=== PATIENT | male | born 1970 | race Caucasian/White ===

== ENCOUNTER 2017-07-18 14:57 | Inpatient (IN) | payer OTHER ==
[~2017-07-18] VITALS: Ht 170.2 cm; Wt 88.5 kg
[~2017-07-18 14:57] MED LIST: CARAFATE1 GM PO; COL100 PO; INS7030 SC; INVOKANA100 MG PO; KEFLEX500 MG PO; NORCO1 TA2 PO; PRILOSEC20 MG PO; REG5 PO; VIC PO
--- NOTE | 2017-07-18 15:24 | NUR ---
PT PRESENTED TO ED WITH C/O N&V, DIZZINESS, ABD PAIN AND WEAKNESS SINCE THIS MORNING. PT IS AAOX4, BREATHING EVEN AND UNLABORED. PT IN NO ACUTE DISTRESS.
--- NOTE | 2017-07-18 15:25 | NUR ---
X-RAY AT BEDSIDE.
[2017-07-18 15:31] LABS: BASOPHIL % 0.5 % (0-2); PLATELET COUNT 242 x10^3mcL (130-400); RED CELL DISTRIBUTION WIDTH 13.4 % (11.5-14.5)
[2017-07-18 15:38] LABS: CALCIUM 8.5 mg/dL (8.5-10.1); CARBON DIOXIDE 28.6 mmol/L (21-32); CHLORIDE SERUM 95 mmol/L (98-107); GFR1 > 60 mL/min; GLUCOSE SERUM 382 mg/dL (74-106); POTASSIUM SERUM 4.6 mmol/L (3.5-5.1); SODIUM SERUM 131 mmol/L (136-145)
[2017-07-18 15:43] LABS: ALBUMIN 3.8 g/dL (3.4-5.0); ALKALINE PHOSPHATASE 93 U/L (46-116); ALT/SGPT 24 U/L (16-63); AST/SGOT 15 U/L (15-37); BILIRUBIN TOTAL 1.1 mg/dL (0.20-1.00); CHOLESTEROL 155 mg/dL (<200); HDL CHOLESTEROL 43 mg/dL (40-60); LIPASE 35 IU/L (73-393); PHOSPHOROUS 3.3 mg/dL (2.5-4.9); TOTAL PROTEIN, SERUM 7.9 g/dL (6.4-8.2); URIC ACID 6.1 mg/dL (3.5-7.2)
[2017-07-18] MEDS ORDERED: [UNRECOGNIZED DRUG - REMARK] SQ (16:14)
[2017-07-18] MEDS ORDERED: NORCO (16:15)
--- NOTE | 2017-07-18 16:41 | NUR ---
GAVE REPORT TO ROMÁN RENAE, SHE WILL ASSUME CARE PRIMARY RN POST TRANSFER.
--- NOTE | 2017-07-18 16:50 | NUR ---
RECEIVED PT FROM ED VIA [facility], CAME IN DUE TO WEAKNESS, NAUSEA, VOMITING, CHEST AND ABDOMINAL PAIN X1 DAY. AAOX4. C/O DIZZINESS. NO SOB NOTED. NSR ON THE MONITOR, DENIES CHEST PAIN/PRESSURE AT THIS TIME. DENIES ABDOMINAL DISCOMFORT. STATED THAT HE VOMITED ABOUT 10 EPISODES TODAY BEFORE ADMISSION. SIDE RAILS UPX2. CALL LIGHT ON REACH. PRIMARY NURSE ROMÁN AT BEDSIDE FOR CONTINUITY OF CARE
[2017-07-18 16:55] VITALS: BP 154/89
[2017-07-18 16:55] LABS: T3 TOTAL 1.03 ng/mL
[2017-07-18 16:56] LABS: FREE T4 1.76 ng/dL (0.76-1.46); FREE THYROXINE INDEX 4.9 ug/dL (1.4-4.5); T4(THYROXINE) 12.6 ug/dL (4.7-13.3)
[2017-07-18 17:00] VITALS: Ht 170.2 cm; Wt 88.5 kg
--- NOTE | 2017-07-18 17:00 | NUR ---
ASSUMED PT. CARE,PT. AWAKE ALERT AND ORIENTED. DENIES N/V AND NO ABD. PAIN NOTED ORIENTED TO ROOM AND SURROUNDINGS. CALL LIGHT W/ IN REACH.NO ACUTE DISTRESS NOTED.MD AWARE OF PT. ADMISSION. WILL CONT. PLAN OF CARE. SCD APPLIED TO EMILY. LOWER EXTR.
--- NOTE | 2017-07-18 20:00 | NUR ---
RECEIVED PT IN BED. ALERT AND ORIENTED. ABLE TO VERBALIZE NEEDS.DENIES HEADACHE/DIZZINESS. RESP.EVEN AND UNLABORED. ON ROOM AIR, NO DISTRESS NOTED. AFEBRILE AND VITAL SIGNS STABLE. SR ON THE MONITOR, DENIES CHEST PAIN OR ANY DISCOMFORT AT THIS TIME.ABD. SOFT, NON DISTENDED, BS ACTIVE, NO N/V NOTED. IVF, NS AT 100ML/HR, INFUSING VIA LAC, SITE CLEAR. AMBULATORY. CALL LIGHT WITHIN REACH. WILL CONTINUE TO MONITOR.
[2017-07-18 21:04] VITALS: BP 126/69
--- NOTE | 2017-07-19 00:10 | NUR ---
NO COMPLAINTS NOTED AT THIS TIME. EYES CLOSED. APPEARS ASLEEP, EASILY AROUSABLE. WILL CONTINUE TO MONITOR.
[2017-07-19 03:37] LABS: UA SPECIFIC GRAVITY 1.005 (1.005-1.035)
[2017-07-19 03:38] LABS: microscopic required? YES
[2017-07-19 03:39] LABS: urine erythrocyte TRACE (NEGATIVE)
[2017-07-19 03:42] LABS: AMPHETAMINE QUAL UR NONE DETECTED (NEG <=1000)
[2017-07-19 06:08] VITALS: BP 147/83
[2017-07-19 06:10] LABS: BASOPHIL % 0.6 % (0-2); PLATELET COUNT 227 x10^3mcL (130-400); RED CELL DISTRIBUTION WIDTH 13.5 % (11.5-14.5)
--- NOTE | 2017-07-19 06:15 | NUR ---
UNABLE TO OBTAIN CIARAN REQUESTED FOR 07/19/17 0310 HOURS DUE TO EXCESS HAIR ON PT'S CHEST.
[2017-07-19 06:23] LABS: CALCIUM 8.2 mg/dL (8.5-10.1); CHLORIDE SERUM 105 mmol/L (98-107); CREATININE SERUM 0.8 mg/dL (0.7-1.3); GFR1 > 60 mL/min; GLUCOSE SERUM 178 mg/dL (74-106); POTASSIUM SERUM 4.2 mmol/L (3.5-5.1); SODIUM SERUM 139 mmol/L (136-145)
--- NOTE | 2017-07-19 06:28 | NUR ---
AFEBRILE AND VITAL SIGNS STABLE. RESP. EVEN AND UNLABORED. NO DISTRESS NOTED. DUE MEDS GIVEN ORDERED , DAVID. WELL. NPO MAINTAINED. NO N/V NOTED. IVF INTACT AND INFUSING WELL, SITE CLEAR. VOIDING FREELY. KEPT COMFORTABLE. WILL ENDORSE TO INCOMING NURSE.
--- NOTE | 2017-07-19 08:00 | NUR ---
AAO TIMES 4. TELE # 16 SR. VS'S STABLE. NO SOB. LUNGS CTA. BS'S ACTIVE TIMES 4. THOMAS STRONG. IV SITE TO LFA CDI, PATENT. COOPERATIVE. SLEEPY BUT AROUSABLE, BREATHING REGULAR. PERIPHERAL PULSES PALPABLE. NO EDEMA. SCD BLE.
[2017-07-19 08:48] VITALS: BP 140/79
--- NOTE | 2017-07-19 10:41 | NUR ---
PT WAS GIVEN FIORCETT AFTER DR GRAVES SAW HIM, HE WAS C/O HEADACHE 08/22 WITH NAUSEA AND SENSITIVITY TO LIGHT AND NOISE. FIORCETT WAS GIVEN AT 0930. AT 1030 PT STATES HIS H/A WAS 7. DEMEROL 25 WITH 12.5 MG PHENERGAN WAS GIVEN SLOW IVP DILUTED IN 8 CC NS AT 1031.
--- NOTE | 2017-07-19 11:09 | NUR ---
PT WAS GIVEN 12.5 MG IVP PHENERGAN WITH 25 MG DEMEROL AT 1031 FOR C/O HEADACHE 7/10. AT 1100 PT STATES HIS HEADACHE PAIN IS 0/10. DR FERGUSON ORDERED THIS. IT WAS EFFECTIVE.
[2017-07-19 12:03] VITALS: BP 129/66
[2017-07-19 17:23] VITALS: BP 118/67
--- NOTE | 2017-07-19 20:00 | NUR ---
PT A/A/O X4, FAMILY AT BEDSIDE. PT DENIES DIZZINESS AND HEADACHE. BREATH SOUNDS CLEAR. BREATHING EVEN AND UNLABORED ON ROOM AIR. DENIES CHEST PAIN AND PRESSURE. BOWEL SOUNDS ACTIVE. NO C/O N/V AND ABD PAIN THUS FAR. IV INTACT ON THE LAC INFUSING WITH NS AT 100 ML/HR. MADE PT COMFORTABLE. PLACED CALL LIGHT WITH IN REACH. WILL CONTINUE TO MONITOR.
[2017-07-19 21:39] VITALS: BP 125/71
--- NOTE | 2017-07-20 01:05 | NUR ---
PT RESTING WITH EYES CLOSED. NO DISTRESS AND DISCOMFORT NOTED. WILL CONTINUE TO MONITOR.
--- NOTE | 2017-07-20 05:01 | NUR ---
PT RESTING WITH EYES CLOSED. EASILY AROUSABLE WITH VERBAL STIMULI. NO C/O HEADACHE, NAUSEA AND ABD PAIN THUS FAR. IV INTACT AND INFUSING ORDERED. WILL ENDORSE TO THE AM NURSE ACCORDINGLY.
[2017-07-20 06:01] VITALS: BP 125/72
[2017-07-20 06:29] LABS: BASOPHIL % 0.4 % (0-2); PLATELET COUNT 228 x10^3mcL (130-400); RED CELL DISTRIBUTION WIDTH 13.6 % (11.5-14.5)
--- NOTE | 2017-07-20 06:40 | NUR ---
BLOOD SUGAR 56 REPEAT 54, DR SNOW NOTIFIED. ORDERED D50. PHARMACY CALLED TO VERIFY ORDER. PT WAS GIVEN APPLE JUICE WITH SUGAR. PT STATED FEELING WEAK. WILL GIVE D50 WHEN VERIFIED. WILL ENDORSE TO THE AM NURSE ACCORDINGLY.
--- NOTE | 2017-07-20 06:54 | NUR ---
GAVE PT D50. PT TOLERATED IT WELL. WILL ENDORSE TO THE AM NURSE ACCORDINGLY.
[2017-07-20 06:57] LABS: CALCIUM 8.5 mg/dL (8.5-10.1); CARBON DIOXIDE 23.2 mmol/L (21-32); CHLORIDE SERUM 105 mmol/L (98-107); CREATININE SERUM 0.8 mg/dL (0.7-1.3); GFR1 > 60 mL/min; GLUCOSE SERUM 61 mg/dL (74-106); MAGNESIUM 2.1 mg/dL (1.8-2.4); PHOSPHOROUS 3.3 mg/dL (2.5-4.9); POTASSIUM SERUM 3.6 mmol/L (3.5-5.1); SODIUM SERUM 139 mmol/L (136-145)
--- NOTE | 2017-07-20 08:21 | NUR ---
PER WALESKA PEARSON RN, BLOOD SUGAR WAS 54 AND 56 THIS AM. SHE GAVE D50 AT 0654. THE BLOOD SUGAR WAS RECHECKED AT 0752 AND IT WAS 169.
[2017-07-20 08:48] VITALS: BP 138/84
--- NOTE | 2017-07-20 10:09 | NUR ---
AAO TIMES 4. TELE # 16 ST 101. LUNGS CTA. NO SOB. O2 SAT ON RA 97%. BS'S ACTIVE TIMES 4. IV SITE LAC PATENT, CDI. COOPERATIVE. NO C/O PAIN. PERIPHERAL PULSES PALPABLE. NO EDEMA. SCD BLE. MEDICAL ROUNDS WERE DONE AT [address] MCCORMICK AND THE MEDICINE TEAM AT 0907. THE PLAN TODAY IS TO DC HIM HOME TODAY IF HE TOLERATES ADVANCING HIS DIET FROM CLEAR TO SOLID FOOD FOR LUNCH.
[2017-07-20 12:46] VITALS: BP 182/92
--- NOTE | 2017-07-20 13:54 | NUR ---
DF SHANNA AWARE THAT PT'S BP IS 182/92.
[2017-07-20] MEDS ORDERED: LIPI10 PO (14:05)
[2017-07-20] MEDS ORDERED: ZES5 PO (14:06)
[2017-07-20] MEDS ORDERED: LAC PO (14:07)
[2017-07-20] MEDS ORDERED: ERYTHROMYCIN B250 MG PO (14:13)
[2017-07-20] MEDS ORDERED: MAC100 PO (14:14)
[2017-07-20] MEDS ORDERED: ASPIR 8181 MG PO (14:28)
--- NOTE | 2017-07-20 14:54 | NUR ---
VASOTEC 0.625 MG IVP WAS GIVEN AT 1408 FOR A BP OF 182/92. AT 1457 HIS BP IS NOW 140/83.
[2017-07-20 14:55] VITALS: BP 140/83
[2017-07-20 15:17] VITALS: BP 140/83
--- NOTE | 2017-07-20 15:52 | NUR ---
GAVE PT DISCHARGE INSTRUCTIONS AND PRESCRIPTION. DC'D SL ANGIO INTACT. PT VERBALIZED "I UNDERSTAND" TO ALL INSTRUCTIONS. PT'S CAR IS OUTSIDE, WE WILL WHEEL HIM DOWN BY WHEELCHAIR TO HIS CAR.
== END 2017-07-20 16:03 | disposition home or self-care (01) | DRG 242 ==
LOC: ED 14:57 → DU 16:06
PROVIDERS: Emergency Medicine; ADMIT Family Medicine
DX: K22.6 Gastro-esophageal laceration-hemorrhage syndrome (principal); D68.69 Other thrombophilia; E11.43 Type 2 diabetes mellitus with diabetic autonomic (poly)neuropathy; K31.84 Gastroparesis; E87.8 Other disorders of electrolyte and fluid balance, not elsewhere classified; E87.1 Hypo-osmolality and hyponatremia; E11.65 Type 2 diabetes mellitus with hyperglycemia; I10 Essential (primary) hypertension; E78.5 Hyperlipidemia, unspecified; K76.0 Fatty (change of) liver, not elsewhere classified; N39.0 Urinary tract infection, site not specified; Z53.29 Procedure and treatment not carried out because of patient's decision for other reasons; D64.9 Anemia, unspecified; K82.4 Cholesterolosis of gallbladder; K29.70 Gastritis, unspecified, without bleeding; K21.9 Gastro-esophageal reflux disease without esophagitis; R31.9 Hematuria, unspecified; Z79.4 Long term (current) use of insulin; Z68.30 Body mass index [BMI] 30.0-30.9, adult; Z79.899 Other long term (current) drug therapy; Z82.3 Family history of stroke
CPT/HCPCS: 82962; 83880; 84439; C9113; J0696; J1364; J1815; J1885; J2175; J2405; J2550; J3490; J7030; J8597; Q0092

== ENCOUNTER 2018-03-01 11:54 | Emergency (ER) | payer OTHER ==
[~2018-03-01] VITALS: Ht 170.2 cm; Wt 85.2 kg
[~2018-03-01 11:54] MED LIST changes: +ASPIR 8181 MG PO; +ERYTHROMYCIN B250 MG PO; +LAC PO; +LIPI10 PO; +MAC100 PO; +NORCO; +ZES5 PO; +[UNRECOGNIZED DRUG - REMARK] SQ
[2018-03-01 12:11] VITALS: Ht 170.2 cm; Wt 85.2 kg
[2018-03-01 13:24] LABS: BASOPHIL % 0.2 % (0-2); PLATELET COUNT 264 x10^3mcL (130-400); RED CELL DISTRIBUTION WIDTH 13.8 % (11.5-14.5)
[2018-03-01 13:36] LABS: CALCIUM 8.9 mg/dL (8.5-10.1); CARBON DIOXIDE 30.4 mmol/L (21-32); CHLORIDE SERUM 97 mmol/L (98-107); CREATININE SERUM 1.1 mg/dL (0.7-1.3); GFR1 > 60 mL/min; GLUCOSE SERUM 309 mg/dL (74-106); SODIUM SERUM 133 mmol/L (136-145)
[2018-03-01 13:40] LABS: ALBUMIN 3.6 g/dL (3.4-5.0); ALKALINE PHOSPHATASE 91 U/L (46-116); ALT/SGPT 21 U/L (16-63); AST/SGOT 16 U/L (15-37); BILIRUBIN TOTAL 0.95 mg/dL (0.20-1.00); LIPASE 30 IU/L (73-393); TOTAL PROTEIN, SERUM 7.6 g/dL (6.4-8.2)
[2018-03-01 13:41] LABS: AMYLASE 23 U/L (25-115)
[2018-03-01 15:00] VITALS: BP 145/88
== END 2018-03-01 15:00 | disposition home or self-care (01) ==
LOC: ED 11:54
PROVIDERS: Emergency Medicine
DX: E11.43 Type 2 diabetes mellitus with diabetic autonomic (poly)neuropathy (principal); K31.84 Gastroparesis; I10 Essential (primary) hypertension; Z86.79 Personal history of other diseases of the circulatory system
CPT/HCPCS: 83880; J1885; J2405

== ENCOUNTER 2018-06-26 03:17 | Inpatient (IN) | payer OTHER ==
[~2018-06-26] VITALS: Ht 170.2 cm; Wt 87.5 kg
[2018-06-26 03:21] VITALS: Ht 170.2 cm; Wt 87.5 kg
[2018-06-26 04:09] LABS: BASOPHIL % 0.3 % (0-2); PLATELET COUNT 249 x10^3mcL (130-400); RED CELL DISTRIBUTION WIDTH 13.6 % (11.5-14.5)
[2018-06-26 04:14] LABS: CALCIUM 8.9 mg/dL (8.5-10.1); CARBON DIOXIDE 28.5 mmol/L (21-32); CHLORIDE SERUM 103 mmol/L (98-107); GFR1 > 60 mL/min; GLUCOSE SERUM 140 mg/dL (74-106); POTASSIUM SERUM 3.5 mmol/L (3.5-5.1); SODIUM SERUM 136 mmol/L (136-145)
[2018-06-26 04:17] LABS: UA SPECIFIC GRAVITY <=1.005 (1.005-1.035); microscopic required? YES; urine erythrocyte 1+ (NEGATIVE)
[2018-06-26 04:19] LABS: ALBUMIN 3.8 g/dL (3.4-5.0); ALKALINE PHOSPHATASE 86 U/L (46-116); ALT/SGPT 26 U/L (16-63); AST/SGOT 23 U/L (15-37); BILIRUBIN TOTAL 0.19 mg/dL (0.20-1.00); LIPASE 40 IU/L (73-393); TOTAL PROTEIN, SERUM 7.9 g/dL (6.4-8.2)
[2018-06-26] MEDS ORDERED: PRINIVIL10 MG PO (05:13)
[2018-06-26] MEDS ORDERED: NORCO1 TA2 PO (05:13)
[2018-06-26 06:05] VITALS: BP 130/81
[2018-06-26 06:35] VITALS: BP 130/81
[2018-06-26 07:20] LABS: CHOLESTEROL/HDL RATIO 3.5; MAGNESIUM 2.2 mg/dL (1.8-2.4); PHOSPHOROUS 4.5 mg/dL (2.5-4.9)
[2018-06-26 09:25] VITALS: BP 117/70
[2018-06-26 12:20] VITALS: BP 118/66
[2018-06-26 13:21] LABS: AMPHETAMINE QUAL UR NONE DETECTED (See below)
[2018-06-26] MEDS ORDERED: LANTI SQ (15:55)
[2018-06-26] MEDS ORDERED: HUMULIN R100 U/1 M1 SC (15:58)
[2018-06-26 17:20] VITALS: BP 138/77
[2018-06-26 21:39] VITALS: BP 136/70
[2018-06-27 06:05] VITALS: BP 138/80
[2018-06-27 06:20] LABS: CALCIUM 8.1 mg/dL (8.5-10.1); CARBON DIOXIDE 24.9 mmol/L (21-32); CHLORIDE SERUM 103 mmol/L (98-107); CREATININE SERUM 0.8 mg/dL (0.7-1.3); GFR1 > 60 mL/min; SODIUM SERUM 133 mmol/L (136-145)
[2018-06-27 06:21] LABS: BASOPHIL % 0.6 % (0-2); PLATELET COUNT 225 x10^3mcL (130-400); RED CELL DISTRIBUTION WIDTH 13.8 % (11.5-14.5)
[2018-06-27 06:53] LABS: GLUCOSE SERUM 257 mg/dL (74-106); MAGNESIUM 1.7 mg/dL (1.8-2.4); PHOSPHOROUS 3.6 mg/dL (2.5-4.9)
[2018-06-27 09:14] VITALS: BP 142/77
[2018-06-27] MEDS ORDERED: NEU300 PO (10:55)
[2018-06-27 13:23] LABS: T3 TOTAL 1.02 ng/mL
[2018-06-27 13:53] LABS: FREE T4 1.29 ng/dL (0.76-1.46); FREE THYROXINE INDEX 3.2 ug/dL (1.4-4.5)
[2018-06-27 14:09] VITALS: BP 142/77
== END 2018-06-27 14:53 | disposition home or self-care (01) | DRG 420 ==
LOC: ED 03:17 → DU 05:01
PROVIDERS: Emergency Medicine; Family Medicine; Internal Medicine
DX: E11.649 Type 2 diabetes mellitus with hypoglycemia without coma (principal); I10 Essential (primary) hypertension; Z79.4 Long term (current) use of insulin; Z68.30 Body mass index [BMI] 30.0-30.9, adult; R68.0 Hypothermia, not associated with low environmental temperature
CPT/HCPCS: 83880; 84439; J2543; J7030; Q0092

== ENCOUNTER 2019-03-19 12:20 | Inpatient (IN) | payer OTHER ==
[~2019-03-19] VITALS: Ht 170.2 cm; Wt 83.0 kg
[~2019-03-19 12:20] MED LIST changes: +HUMULIN R100 U/1 M1 SC; +LANTI SQ; +NEU300 PO; +PRINIVIL10 MG PO
[2019-03-19 12:46] VITALS: Ht 170.2 cm; Wt 83.0 kg
--- NOTE | 2019-03-19 13:05 | NUR ---
AWAKE ALERT, C/O FLANK PAIN SINCE 1 AM WITH NAUSEA AND VOMITING,
--- NOTE | 2019-03-19 13:34 | NUR ---
MEDICATED FOR FLANK PAIN WITH TORADOL AND ZOFRAN FOR VOMITING
[2019-03-19 13:36] LABS: BASOPHIL % 0.4 % (0-2); PLATELET COUNT 308 x10^3mcL (130-400); RED CELL DISTRIBUTION WIDTH 12.7 % (11.5-14.5)
[2019-03-19 13:45] LABS: UA SPECIFIC GRAVITY >1.030 (1.005-1.035); microscopic required? YES
[2019-03-19 13:46] LABS: urine erythrocyte 2+ (NEGATIVE)
[2019-03-19 14:25] LABS: CALCIUM 8.6 mg/dL (8.5-10.1); CARBON DIOXIDE 26.4 mmol/L (21-32); CREATININE SERUM 1.6 mg/dL (0.7-1.3); POTASSIUM SERUM 3.7 mmol/L (3.5-5.1)
[2019-03-19 14:29] LABS: BILIRUBIN TOTAL 0.3 mg/dL (0.20-1.00); TOTAL PROTEIN, SERUM 7.5 g/dL (6.4-8.2)
[2019-03-19 14:31] LABS: ALBUMIN 2.8 g/dL (3.4-5.0)
--- NOTE | 2019-03-19 14:53 | NUR ---
PT MEDICATED ORDERED FOR PAIN. PT AWAKE ALERT AND ORIENTED. BREATHING EVEN UNLABORED. NO DISTRESS.
--- NOTE | 2019-03-19 15:09 | NUR ---
REPORT TO BENITO
[2019-03-19 15:41] LABS: CHOLESTEROL/HDL RATIO 3.4; PHOSPHOROUS 3.4 mg/dL (2.5-4.9)
[2019-03-19 15:50] VITALS: BP 180/87
--- NOTE | 2019-03-19 15:54 | NUR ---
GAVE PT NORCO 1 TAB FOR C/O L FLANK PAIN AT 8/10 PAIN SCALE.
--- NOTE | 2019-03-19 16:01 | NUR ---
RECEVIED PT FROM ER, PT ADMIT FOR INTRACTABLE FLANK PAIN HYDRONEPHROSIS, UTI, PT IS A/O X4, VERBAL RESPONSIVE, ABLE TO TELL WHAT HE NEEDS. LUNG SOUND CLEAR BILATERAL, NO COUGH, NO SOB, DENY ANY CHEST PAIN OR DISCOMFORT, BOWEL SOUND PRESENT ALL 4 QUADRANTS, NO DISTENTION, C/O LEFT FLANK PAIN, 8/10, DENY ANY N/V, PEDAL PULSE PRESENT BOTH FEET, TRACE EDEMA BLE, IV AT RIGHT AC, AND RIGHT FA, NO LEAKIGN, NO INFILTRAITON. ALL ADLS ASSIST, ALL NEED MET, CALL LIGHT IN REACH, WILL CONTINUE TO MONITOR.
--- NOTE | 2019-03-19 16:10 | NUR ---
RECEIVED PT ,RESOURCE NURSE.AAO X4.C/O L FLANK PAIN AT 8/10 PAIN SCALE.WILL MEDICATE NEEDED.LUNGS CLEAR.PT NON-TELE.IVF NS STARTED AT 100 ML/HR INFUSING WELL.CALL LIGHT WITHIN REACH.INSTRUCTED TO CALL FOR ANY PAIN/DISCOMFORT.PT VERBALIZES UNDERSTANDING.WILL CONTINUE TO MONITOR PT.
--- NOTE | 2019-03-19 16:30 | NUR ---
GAVE MORPHINE ORDERED PRN FOR UNRELIEVED PAIN AFTER GIVING HIM NORCO.WILL RECHECK
--- NOTE | 2019-03-19 16:44 | NUR ---
GAVE ZOFRAN 4 MG IVP FOR C/O NAUSEA AND VOMITTING.
--- NOTE | 2019-03-19 16:54 | NUR ---
RECHECKED PAIN LEVEL CLAIMS PAIN IS GETTING WORSE AT 10/10
--- NOTE | 2019-03-19 17:00 | NUR ---
RECHECKED PAIN LEVEL CLAIMS PAIN WENT DOWN TO 7/10 PAIN SCALE.CLAIMS TO FEEL A LOT BETTER.
--- NOTE | 2019-03-19 18:27 | NUR ---
NO SIGNIFICANT CHANGE NOTED.WILL ENDORSE TO NEXT SHIFT.
--- NOTE | 2019-03-19 20:00 | NUR ---
PT A/A/O X4, FAMILY AT BEDSIDE. PT DENIES DIZZINESS AND HEADACHE. BREATH SOUNDS CLEAR. BREATHING EVEN AND UNLABORED ON ROOM AIR. DENIES CHEST PAIN AND PRESSURE. HYPOACTIVE BOWEL SOUNDS NOTED. PT VOMITING SMALL AMOUNT OF FLUID. WILL GIVE ANTIEMESIS MEDICATION WHEN DUE. NO C/O ABDOMINAL PAIN THUS FAR. TRACE EDEMA NOTED BLE. IV SALINE LOCK INTACT ON THE RAC AND IV INTACT ON THE RIGHT FOREARM INFUSING WITH NS AT 100 ML/HR. MADE PT COMFORTABLE. PLACED CALL LIGHT WITH IN REACH. WILL CONTINUE TO MONITOR.
[2019-03-19 20:40] VITALS: BP 162/69
--- NOTE | 2019-03-19 21:35 | NUR ---
PT C/O NAUSEA. GAVE PT ZOFRAN IVP. PT TOLERATED IT WELL. WILL CONTINUE TO MONITOR.
--- NOTE | 2019-03-20 00:51 | NUR ---
PT RESTING WITH EYES CLOSED. NO DISTRESS AND DISCOMFORT NOTED. WILL CONTINUE TO MONITOR.
--- NOTE | 2019-03-20 02:56 | NUR ---
PT C/O NAUSEA AND LEFT FLANK PAIN. GAVE PT ZOFRAN IVP FOR NAUSEA AND MORPHINE IVP FOR PAIN. PT TOLERATED MEDICATIONS WELL. WILL CONTINUE TO MONITOR.
--- NOTE | 2019-03-20 05:02 | NUR ---
PT C/O CHILLS AND CONTINUES TO VOMIT. DR. MUÑOZ MADE AWARE. WAITING FOR NEW ORDERS. MADE PT COMFORTABLE. WILL CONTINUE TO MONITOR.
[2019-03-20 05:35] VITALS: BP 165/77
--- NOTE | 2019-03-20 05:41 | NUR ---
PT C/O NAUSEA. GAVE PT PHENERGAN IVP. PT TOLERATED IT WELL. DENIES PAIN THUS FAR. WILL CONTINUE TO MONITOR.
[2019-03-20 06:44] VITALS: BP 133/67
--- NOTE | 2019-03-20 06:45 | NUR ---
PT DENIES PAIN AND NAUSEA THUS FAR. IV INTACT AND INFUSING ORDERED. MADE PT COMFORTABLE. WILL ENDORSE TO THE AM NURSE ACCORDINGLY.
[2019-03-20 06:54] LABS: PLATELET COUNT 286 x10^3mcL (130-400); RED CELL DISTRIBUTION WIDTH 13.1 % (11.5-14.5)
[2019-03-20 07:03] LABS: CARBON DIOXIDE 23.3 mmol/L (21-32); CREATININE SERUM 1.7 mg/dL (0.7-1.3); MAGNESIUM 1.7 mg/dL (1.8-2.4); PHOSPHOROUS 2.6 mg/dL (2.5-4.9); POTASSIUM SERUM 3.9 mmol/L (3.5-5.1)
--- NOTE | 2019-03-20 07:10 | NUR ---
RECIEVED PT FROM NIGHT NURSE. PT IS LAYING DOWN IN BED RESTING WITH EYES CLOSE. PT LOOKS TO BE IN NO ACUTE DISTRESS AT THIS TIME. IV SITE PATENT WITH NO SIGNS OF ERYTHEMA OR SWELLING. BED IN LOWEST POSITION. CALL LIGHT WITHIN REACH. WILL CONTINUE TO MONTIOR.
[2019-03-20 07:57] VITALS: BP 130/60
--- NOTE | 2019-03-20 08:15 | NUR ---
PT TEMP ORAL 101. REMOVED BLANKETS AND PLACED ICE PACKS, WILL CONTINUE TO MONITOR.
--- NOTE | 2019-03-20 09:00 | NUR ---
REASSESSED TEMP POST COOLING MEASURES. PT TEMP CURRENTLY AT 98.9F ORAL. INSTRUCTED TO PRESS CALL LIGHT IF FEELING A CHANGE IN TEMPERATURE. ARTEM CONTINUE TO MONITOR TEMP. CALL LIGHT WITHIN REACH.
[2019-03-20 11:54] VITALS: BP 118/66
--- NOTE | 2019-03-20 13:20 | NUR ---
PT COMPLAINING OF NAUSEA AND STATED VOMITED 3 TIMES. ALSO COMPLAINING OF A HEADACHE. WILL MEDICATE PT ACCORDINDING TO EMAR.
[2019-03-20 14:10] LABS: BAND NEUTROPHIL 8 % (0-10); BASOPHIL 0 % (0-2); MONOCYTE 1 % (0-7); SEGMENTED NEUTROPHILS 91 % (37-75)
[2019-03-20 14:11] LABS: rbc morphology (normal/abnorm) ABNORMAL (NORMAL)
[2019-03-20 14:12] LABS: PLATELET MORPHOLOGY PLATELETS INCREASED
[2019-03-20 17:11] VITALS: BP 138/59
--- NOTE | 2019-03-20 18:24 | NUR ---
PT IS SITTING UP IN BED EATING. 2 FAMILY MEMBERS AT BEDSIDE. PT DENIES ANY PAIN OR FEELINGS OF NASUEA AT THIS TIME. IV SITE IS PATENT WITH NO SIGNS OF ERYTHEMA OR SWELING WITH IV FLUIDS INFUSING. BED IN LOWEST POSITION. CALL LIGHT WITHIN REACH. WILL ENDORSE TO ONCOMING SHIFT.
[2019-03-20 19:37] VITALS: BP 131/66
--- NOTE | 2019-03-20 20:05 | NUR ---
PATIENT RECEIVED AWAKE, ALERT, ORIENTED X4 IN BED. FAMILY MEMBERS AT THE BEDSIDE. RESPIRATION EVEN AND UNLABORED, ON ROOM AIR. ONGOING 0.9% NS AT 100 CC/HR INFUSING WELL AT THE RIGHT WRIST AND SALINE LOCK TO RIGHT ANTECUBITAL AREA. DENIES PAIN AT THIS TIME. NO GI COMPLAINTS NOTED AT THIS TIME. GENERALIZED WEAKNESS TO EXTREMITIES. SKIN INTACT. VOIDING FREELY WITHOUT DIFFICULTY. WILL CONTINUE TO MONITOR.
--- NOTE | 2019-03-20 20:42 | NUR ---
PATIENT COMPLAINED OF SHARP ABDOMINAL/BACK PAIN, PS 10/10. MEDICATED WITH MORPHINE SULFATE 1 MG IVP ORDERED. WILL CONTINUE TO MONITOR.
--- NOTE | 2019-03-21 02:47 | NUR ---
PATIENT COMPLAINED OF SHARP ABDOMINAL AND BACK PAIN, PS 10/10 AND NAUSEA. MEDICATED WITH MORPHINE SULFATE 1 MG IVP ORDERED AND PHENERGAN 12.5 MG IVP ORDERED. WILL CONTINUE TO MONITOR.
[2019-03-21 04:47] VITALS: BP 139/59
--- NOTE | 2019-03-21 05:05 | NUR ---
PATIENT VERBALIZED HE DOESN'T FEEL GOOD, HE FEELS LIKE THROWING UP AGAIN, HE CAN'T EXPLAIN HOW HIS STOMACH FEELS. DR MUÑOZ INFORMED PERSONALLY. WILL COME UP TO SEE PATIENT.
--- NOTE | 2019-03-21 06:07 | NUR ---
PATIENT STILL COMPLAINING OF NAUSEA AND VOMITING. NOTED 100 ML OF EMESIS. MEDICATED WITH PHENERGAN 12.5 MG IVP ORDERED. HE IS ALSO COMPLAINING OF ABDOMINAL PAIN, PS 10/10. MEDICATED WITH MORPHINE 1 MG IVP ORDERED. WILL CONTINUE TO MONITOR.
--- NOTE | 2019-03-21 06:12 | NUR ---
PATIENT RESTING IN BED. PATIENT VERBALIZED HE STILL DOESN'T FEEL GOOD. REPOSITIONED FOR COMFORT. ICE CHIPS OFFERED BUT REFUSED. IV SITE NO SIGN OF INFILTRATION. ASSISTED WITH NEEDS. SAFETY OBSERVED. PLACED BED IN THE LOWEST POSITION. PLACED CALL LIGHT WITHIN REACH AT ALL TIMES.
[2019-03-21 07:08] LABS: BASOPHIL % 0.1 % (0-2); PLATELET COUNT 293 x10^3mcL (130-400); RED CELL DISTRIBUTION WIDTH 12.3 % (11.5-14.5)
--- NOTE | 2019-03-21 07:10 | NUR ---
RECIEVED PT FROM NIGHT NURSE. PT IS RESTING IN BED WITH HOB UP. RESPIRATIONS EVEN AND UNLABORED ON ROOM AIR. PT LOOKS TO BE IN NO ACUTE DISTRESS AT THIS TIME. IV SITE PATENT WITH NO SIGNS OF ERYTHEMA OR SWELLING WITH IV FLUIDS INFUSING. BED IN LOWEST POSITION, CALL LIGHT WITHIN REACH. WILL CONTINUE TO MONITOR.
[2019-03-21 07:18] LABS: CALCIUM 8.3 mg/dL (8.5-10.1); CARBON DIOXIDE 18.6 mmol/L (21-32); CHLORIDE SERUM 99 mmol/L (98-107); CREATININE SERUM 1.2 mg/dL (0.7-1.3); GFR1 > 60 mL/min; GLUCOSE SERUM 341 mg/dL (74-106); PHOSPHOROUS 2.5 mg/dL (2.5-4.9); POTASSIUM SERUM 4.2 mmol/L (3.5-5.1); SODIUM SERUM 133 mmol/L (136-145)
[2019-03-21 07:48] VITALS: BP 136/60
[2019-03-21 12:04] VITALS: BP 120/56
--- NOTE | 2019-03-21 13:09 | NUR ---
PT COMPLAINING OF BACK PAIN 07/23. PT REQUESTING PAIN MEDICATIO. MADE PT COMFORTABLE IN BED. WILL MEDICATE ACCORDING TO EMAR
[2019-03-21 16:03] VITALS: BP 134/65
--- NOTE | 2019-03-21 18:44 | NUR ---
PT IS LAYING DOWN IN BED WITH HOB UP. RESPRIATIONS EVEN AND UNLABORED ON ROOM AIR. PT IS COMPLAINING OF BACK PAIN, MEDICATED PT, WILL REASSES. IV SITE PATENT WITH NO SIGNS OF ERYTHEMA OR SWELLING WITHIN IV FLUIDS INFUSING. PT DENIES FEELING NASUEA AT THIS TIME. FAMILY MEMBER AT BEDSIDE. BED IN LOWEST POSITION. CALL LIGHT WITHIN REACH. WILL ENDORSE TO ONCOMING SHIFT.
--- NOTE | 2019-03-21 19:15 | NUR ---
RECEIVED PT FROM PREVIOUS SHIFT NURSE. PT AOX4. DENIES SANCHEZ/DIZZINESS. MED SURG PT, DENIES CP/PRESSURE. NO SOB/DIFFICULTY BREATHING, ON RA. IV TO RAC, INTACT AND PATENT. BED IN LOWEST POSITION. CALL LIGHT WITHIN REACH. WILL CONTINUE TO MONITOR.
[2019-03-21 20:23] VITALS: BP 140/69
--- NOTE | 2019-03-22 02:47 | NUR ---
PT RESTING IN BED. RR EVEN AND UNLABORED. NO ACUTE DISTRESS NOTED. CALL LIGHT WITHIN REACH. BED IN LOWEST POSITION. WILL CONTINUE TO MONITOR.
[2019-03-22 04:42] VITALS: BP 145/74
[2019-03-22 06:47] LABS: CALCIUM 8.4 mg/dL (8.5-10.1); CARBON DIOXIDE 23.7 mmol/L (21-32); CHLORIDE SERUM 102 mmol/L (98-107); GFR1 > 60 mL/min; GLUCOSE SERUM 324 mg/dL (74-106); MAGNESIUM 1.9 mg/dL (1.8-2.4); PHOSPHOROUS 2.6 mg/dL (2.5-4.9); POTASSIUM SERUM 4.3 mmol/L (3.5-5.1); SODIUM SERUM 135 mmol/L (136-145)
[2019-03-22 07:38] LABS: PLATELET COUNT 310 x10^3mcL (130-400); RED CELL DISTRIBUTION WIDTH 13.4 % (11.5-14.5)
[2019-03-22 07:39] LABS: BASOPHIL % 0.2 % (0-2)
--- NOTE | 2019-03-22 07:43 | NUR ---
ASSUMED CARE OF PATIENT. ALERT AND ORIENTED X4. S1 S2 SOUNDS NOTED. PULSES PALPABLE BILATERALLY. TRACE BLE EDEMA. LUNG SOUNDS CLEAR TO ROOM AIR, NO ADVENTITIOUS BREATH SOUNDS NOTED BILATERALLY. BOWEL SOUNDS ACTIVE IN ALL 4 QUADRANTS. VOIDING WITH NO ISSUE. GENERALIZED WEAKNESS, BUT AMBULATING INDEPENDENTLY WITH STEADY GAIT. SKIN CLEAN DRY INTACT. NO COMPLAINTS OF PAIN. IV ON RIGHT AC PATENT AND INFUSING WELL. BED LOCKED AND IN LOWEST POSITION. NONSKID SOCKS IN PLACE. CALL LIGHT WITHIN REACH. WILL CONTINUE TO MONITOR.
--- NOTE | 2019-03-22 09:00 | NUR ---
ORDER FOR CT VERFIFIED. NOTIFIED CT THAT PATIENT ATE BREAKFAST AT 830 THIS MORNING. 18G PATENT AND INFUSING ON RFA. EDUCATED PATIENT TO REMAIN NPO UNTIL CT EXAMINATION.
[2019-03-22 09:16] VITALS: BP 152/77
--- NOTE | 2019-03-22 12:17 | NUR ---
RETURNED FROM CT. PLACED BACK ON IVF. NO NEW ISSUES.
--- NOTE | 2019-03-22 13:40 | NUR ---
PATIENT SEEN RESTING IN BED WITH NO COMPLAINTS OF PAIN OR DISCOMFORT. NO N/V. NO NEW ISSUES AT THIS TIME.
[2019-03-22] MEDS ORDERED: TRAMADOL HCL50 MG PO (14:20)
[2019-03-22] MEDS ORDERED: KEFLEX500 M1 PO (14:21)
[2019-03-22 14:37] VITALS: BP 152/77
--- NOTE | 2019-03-22 15:02 | NUR ---
PATIENT PROVIDED WITH DISCHARGE INSTRUCTIONS. PRESCRIPTIONS PROVIDED. REQUESTING TO HAVE ROCEPHIN BEFORE DISCHARGE. NO COMPLAINTS OF PAIN OR DISCOMFORT AT THIS TIME.
--- NOTE | 2019-03-22 16:08 | NUR ---
PATIENT DISCHARGED FROM UNIT BY WHEELCHAIR. NO COMPLAINTS OF PAIN OR DISCOMFORT. IV REMOVED WITH CATHETER INTACT. ID BAND REMOVED. LEFT WITH ALL BELONGINGS.
== END 2019-03-22 16:04 | disposition home or self-care (01) | DRG 463 ==
LOC: ED 12:20 → MU 14:48 → EDBEDREQ 14:48 → MU 15:41
PROVIDERS: Emergency Medicine; ADMIT Family Medicine
DX: N10 Acute pyelonephritis (principal); N17.0 Acute kidney failure with tubular necrosis; E11.65 Type 2 diabetes mellitus with hyperglycemia; E44.0 Moderate protein-calorie malnutrition; E87.1 Hypo-osmolality and hyponatremia; E86.0 Dehydration; G89.29 Other chronic pain; M79.672 Pain in left foot; I10 Essential (primary) hypertension; Z79.4 Long term (current) use of insulin; Z68.28 Body mass index [BMI] 28.0-28.9, adult; Z82.3 Family history of stroke; Z79.899 Other long term (current) drug therapy
CPT/HCPCS: 82962; J0696; J1885; J2270; J2405; J2550; J3010; J7030; Q9967

== ENCOUNTER 2019-03-24 12:39 | Emergency (ER) | payer OTHER ==
[~2019-03-24] VITALS: Ht 170.2 cm; Wt 81.6 kg
[~2019-03-24 12:39] MED LIST changes: +KEFLEX500 M1 PO; +TRAMADOL HCL50 MG PO
[2019-03-24 12:47] VITALS: Ht 170.2 cm; Wt 81.6 kg
[2019-03-24 13:28] LABS: BASOPHIL % 0.2 % (0-2); PLATELET COUNT 381 x10^3mcL (130-400); RED CELL DISTRIBUTION WIDTH 12.9 % (11.5-14.5)
[2019-03-24 13:36] LABS: CALCIUM 8.4 mg/dL (8.5-10.1); CARBON DIOXIDE 21.2 mmol/L (21-32); CHLORIDE SERUM 95 mmol/L (98-107); CREATININE SERUM 1.3 mg/dL (0.7-1.3); GFR1 > 60 mL/min; GLUCOSE SERUM 447 mg/dL (74-106); POTASSIUM SERUM 4.1 mmol/L (3.5-5.1); SODIUM SERUM 132 mmol/L (136-145)
[2019-03-24 13:40] LABS: ALKALINE PHOSPHATASE 95 U/L (46-116); ALT/SGPT 17 U/L (16-63); AST/SGOT 13 U/L (15-37); BILIRUBIN TOTAL 0.43 mg/dL (0.20-1.00); LIPASE 24 IU/L (73-393)
[2019-03-24 13:41] LABS: ALBUMIN 2.5 g/dL (3.4-5.0)
[2019-03-24 16:26] VITALS: BP 147/83
== END 2019-03-24 16:26 | disposition home or self-care (01) ==
LOC: ED 12:39
PROVIDERS: Emergency Medicine
DX: N12 Tubulo-interstitial nephritis, not specified as acute or chronic (principal); E11.22 Type 2 diabetes mellitus with diabetic chronic kidney disease; I12.0 Hypertensive chronic kidney disease with stage 5 chronic kidney disease or end stage renal disease; N18.6 End stage renal disease; R20.8 Other disturbances of skin sensation
CPT/HCPCS: 82962; J2270; J2405; J3490; J7030

== ENCOUNTER 2019-03-25 08:56 | Inpatient (IN) | payer OTHER ==
[~2019-03-25] VITALS: Ht 170.2 cm; Wt 79.4 kg
[2019-03-25 09:10] VITALS: Ht 170.2 cm; Wt 79.4 kg
[2019-03-25 10:07] LABS: ALKALINE PHOSPHATASE 91 U/L (46-116); ALT/SGPT 17 U/L (16-63); AST/SGOT 10 U/L (15-37); BILIRUBIN TOTAL 0.46 mg/dL (0.20-1.00); CALCIUM 9.9 mg/dL (8.5-10.1); CHLORIDE SERUM 94 mmol/L (98-107); CREATININE SERUM 1.3 mg/dL (0.7-1.3); GFR1 > 60 mL/min; LIPASE 26 IU/L (73-393); POTASSIUM SERUM 4.1 mmol/L (3.5-5.1); SODIUM SERUM 131 mmol/L (136-145); TOTAL PROTEIN, SERUM 7.1 g/dL (6.4-8.2)
[2019-03-25 10:11] LABS: BASOPHIL % 0.2 % (0-2); PLATELET COUNT 392 x10^3mcL (130-400); RED CELL DISTRIBUTION WIDTH 13.3 % (11.5-14.5)
[2019-03-25 10:13] LABS: ALBUMIN 2.6 g/dL (3.4-5.0)
[2019-03-25 10:14] LABS: GLUCOSE SERUM 486 mg/dL (74-106)
[2019-03-25 11:59] LABS: UA SPECIFIC GRAVITY 1.015 (1.005-1.035); microscopic required? YES; urine erythrocyte 2+ (NEGATIVE)
[2019-03-25 14:43] VITALS: BP 172/81
[2019-03-25 16:36] LABS: CHOLESTEROL/HDL RATIO 4.8
[2019-03-25 16:54] LABS: AMPHETAMINE QUAL UR NONE DETECTED (See below)
[2019-03-25 18:36] VITALS: BP 168/77
[2019-03-25 20:44] VITALS: BP 167/81
[2019-03-26 06:10] VITALS: BP 163/85
[2019-03-26 06:26] VITALS: BP 160/74
[2019-03-26 06:35] LABS: BASOPHIL % 0.5 % (0-2); PLATELET COUNT 335 x10^3mcL (130-400); RED CELL DISTRIBUTION WIDTH 13.3 % (11.5-14.5)
[2019-03-26 06:46] LABS: CALCIUM 8.5 mg/dL (8.5-10.1); CARBON DIOXIDE 26.8 mmol/L (21-32); CHLORIDE SERUM 101 mmol/L (98-107); CREATININE SERUM 0.8 mg/dL (0.7-1.3); GFR1 > 60 mL/min; GLUCOSE SERUM 207 mg/dL (74-106); POTASSIUM SERUM 3.4 mmol/L (3.5-5.1); SODIUM SERUM 136 mmol/L (136-145)
[2019-03-26 09:12] VITALS: BP 152/77
[2019-03-26 12:21] VITALS: BP 162/85
[2019-03-26 15:29] LABS: CALCIUM 8.3 mg/dL (8.5-10.1); CARBON DIOXIDE 27.7 mmol/L (21-32); CHLORIDE SERUM 98 mmol/L (98-107); CREATININE SERUM 0.9 mg/dL (0.7-1.3); GFR1 > 60 mL/min; GLUCOSE SERUM 297 mg/dL (74-106); POTASSIUM SERUM 3.5 mmol/L (3.5-5.1); SODIUM SERUM 133 mmol/L (136-145)
[2019-03-26 15:32] LABS: BASOPHIL % 0.2 % (0-2); PLATELET COUNT 387 x10^3mcL (130-400); RED CELL DISTRIBUTION WIDTH 13.5 % (11.5-14.5)
[2019-03-26 16:40] VITALS: BP 165/77
[2019-03-26 21:10] VITALS: BP 169/87
[2019-03-27 06:11] VITALS: BP 143/53
[2019-03-27 09:00] VITALS: BP 159/79
[2019-03-27 12:41] VITALS: BP 165/85
[2019-03-27 17:21] VITALS: BP 162/85
[2019-03-27 21:00] VITALS: BP 129/78
[2019-03-27 21:02] VITALS: BP 136/77
[2019-03-28 05:36] VITALS: BP 149/75
[2019-03-28 07:44] LABS: BASOPHIL % 0.5 % (0-2); PLATELET COUNT 339 x10^3mcL (130-400); RED CELL DISTRIBUTION WIDTH 13.4 % (11.5-14.5)
[2019-03-28 07:45] LABS: CALCIUM 8.6 mg/dL (8.5-10.1); CHLORIDE SERUM 103 mmol/L (98-107); CREATININE SERUM 0.9 mg/dL (0.7-1.3); GFR1 > 60 mL/min; GLUCOSE SERUM 176 mg/dL (74-106); POTASSIUM SERUM 3.2 mmol/L (3.5-5.1); SODIUM SERUM 139 mmol/L (136-145)
[2019-03-28 09:44] VITALS: BP 158/82
[2019-03-28 13:30] VITALS: BP 133/80
[2019-03-28 18:04] VITALS: BP 174/91
[2019-03-28 22:29] VITALS: BP 179/81
[2019-03-29 05:24] VITALS: BP 145/79
[2019-03-29 06:55] LABS: BASOPHIL % 0.4 % (0-2); PLATELET COUNT 354 x10^3mcL (130-400); RED CELL DISTRIBUTION WIDTH 13.8 % (11.5-14.5)
[2019-03-29 07:02] LABS: CALCIUM 8.7 mg/dL (8.5-10.1); CARBON DIOXIDE 30.5 mmol/L (21-32); CHLORIDE SERUM 103 mmol/L (98-107); CREATININE SERUM 0.9 mg/dL (0.7-1.3); GFR1 > 60 mL/min; GLUCOSE SERUM 168 mg/dL (74-106); POTASSIUM SERUM 3.5 mmol/L (3.5-5.1); SODIUM SERUM 139 mmol/L (136-145)
[2019-03-29 08:28] VITALS: BP 127/70
[2019-03-29] MEDS ORDERED: NEU300 PO (09:47)
[2019-03-29] MEDS ORDERED: CIPRO500 MG PO (09:50)
[2019-03-29] MEDS ORDERED: TOR10 PO (09:52)
[2019-03-29 10:30] VITALS: BP 127/70
== END 2019-03-29 12:13 | disposition home health service (06) | DRG 463 ==
LOC: ED 08:56 → DU 13:20 → EDBEDREQ 13:21 → DU 14:31
PROVIDERS: Emergency Medicine; Internal Medicine; ADMIT Family Medicine
DX: N10 Acute pyelonephritis (principal); N17.0 Acute kidney failure with tubular necrosis; E11.65 Type 2 diabetes mellitus with hyperglycemia; I10 Essential (primary) hypertension; E87.1 Hypo-osmolality and hyponatremia; E86.0 Dehydration; E44.0 Moderate protein-calorie malnutrition; Z86.73 Personal history of transient ischemic attack (TIA), and cerebral infarction without residual deficits
CPT/HCPCS: 82962; J0360; J0696; J1815; J1885; J2270; J2405; J2765; J3490; J7030; Q0092

== ENCOUNTER 2019-05-01 05:49 | Emergency (ER) | payer OTHER ==
[~2019-05-01] VITALS: Ht 170.2 cm; Wt 80.9 kg
[~2019-05-01 05:49] MED LIST changes: +CIPRO500 MG PO; +TOR10 PO
[2019-05-01 05:52] VITALS: Ht 170.2 cm; Wt 80.9 kg
[2019-05-01 06:44] LABS: BASOPHIL % 0.1 % (0-2); PLATELET COUNT 252 x10^3mcL (130-400)
[2019-05-01 06:45] LABS: RED CELL DISTRIBUTION WIDTH 14.7 % (11.5-14.5)
[2019-05-01 07:11] LABS: CALCIUM 8.8 mg/dL (8.5-10.1); CREATININE SERUM 1.5 mg/dL (0.7-1.3); POTASSIUM SERUM 4.4 mmol/L (3.5-5.1)
[2019-05-01 07:14] LABS: ALBUMIN 2.9 g/dL (3.4-5.0); BILIRUBIN TOTAL 0.5 mg/dL (0.20-1.00)
[2019-05-01 08:31] LABS: UA SPECIFIC GRAVITY 1.025 (1.005-1.035); microscopic required? YES; urine erythrocyte 2+ (NEGATIVE)
[2019-05-01 09:45] VITALS: BP 148/74
[2019-05-02] MEDS ORDERED: RELION HUMUL100 U/M2 IV (22:34)
== END 2019-05-01 09:45 | disposition home or self-care (01) ==
LOC: ED 05:49
PROVIDERS: Emergency Medicine
DX: N13.30 Unspecified hydronephrosis (principal); I10 Essential (primary) hypertension; E11.9 Type 2 diabetes mellitus without complications; Z98.890 Other specified postprocedural states
CPT/HCPCS: J0780; J1885; J2270; J7030; Q9967

== ENCOUNTER 2019-05-02 16:52 | Inpatient (IN) | payer OTHER ==
[~2019-05-02] VITALS: Ht 170.2 cm; Wt 80.7 kg
[2019-05-02 16:54] VITALS: Ht 170.2 cm; Wt 80.7 kg
[2019-05-02 17:19] LABS: BASOPHIL % 0.3 % (0-2); PLATELET COUNT 264 x10^3mcL (130-400); RED CELL DISTRIBUTION WIDTH 14.5 % (11.5-14.5)
[2019-05-02 17:21] LABS: CALCIUM 8.9 mg/dL (8.5-10.1); CARBON DIOXIDE 25.7 mmol/L (21-32); CREATININE SERUM 1.7 mg/dL (0.7-1.3); POTASSIUM SERUM 4.2 mmol/L (3.5-5.1)
[2019-05-02 17:23] LABS: BILIRUBIN TOTAL 0.43 mg/dL (0.20-1.00); TOTAL PROTEIN, SERUM 7.3 g/dL (6.4-8.2)
--- NOTE | 2019-05-02 17:30 | NUR ---
PT IN ED FOR VOMITTING, ABD PAIN AND BACK PAIN; STS NO TRAUMA. NO DIARRHEA. NO PAIN WITH URINATION. STS WAS SEEN HERE YESTERDAY FOR SAME REASON. WIDE AT BEDSIDE.
--- NOTE | 2019-05-02 17:56 | NUR ---
PT IN GURNEY WITH EYES CLOSED, RESP E/U, NO DISTRESS.
[2019-05-02 18:01] LABS: UA SPECIFIC GRAVITY >=1.030 (1.005-1.035); microscopic required? YES; urine erythrocyte 2+ (NEGATIVE)
--- NOTE | 2019-05-02 18:43 | NUR ---
PT RESP E/U, NO DISTRESS.
--- NOTE | 2019-05-02 19:10 | NUR ---
RECEIVED PT RESTING WITH EYES CLOSED, RESPONDS TO VERBAL STIMULI. RESPIRATIONS EVEN AND UNLABORED. SAFETY PRECAUTIONS IN PLACE
--- NOTE | 2019-05-02 20:06 | NUR ---
MEDICATED PER EMAR. PT REMAINS FREE FROM S/S OF DISTRESS. AWAKE, ALERT, RESPIRATIONS EVEN AND UNLABORED. SAFETY PRECAUTIONS IN PLACE
--- NOTE | 2019-05-02 22:24 | NUR ---
DR. FERNANDES IN TO SEE PATIENT. PT REMAINS FREE FROM S/S OF DISTRESS. AWAKE, ALERT, RESPIRATIONS EVEN AND UNLABORED. SAFETY PRECAUTIONS IN PLACE
[2019-05-02] MEDS ORDERED: RELION HUMUL100 U/M2 IV (22:34)
[2019-05-02 23:38] VITALS: BP 155/76
--- NOTE | 2019-05-02 23:41 | NUR ---
RECEIVED PT FROM ED VIA AALIYAH. ORIENTED PT TO ROOM AND SURROUNDINGS. IV NOTED TO LAC PATENT AND INTACT. INSTRUCTED PT ON THE USE OF CALL LIGHT FOR ASSISTANCE. ENDORSED PT TO PRIMARY NURSE JUDIE
--- NOTE | 2019-05-02 23:45 | NUR ---
RECEIVED PT FROM PREVIOUS SHIFT NURSE. PT AOX4. DENIES SANCHEZ/DIZZINESS. MED SURG PT. DENIES CP/PRESSURE. DENIES SOB/DIFFICULTY BREATHING, ON RA. IV TO LAC, INTACT AND PATENT. BED IN LOWEST POSITION. CALL LIGHT WITHIN REACH. WILL CONTINUE TO MONITOR.
[2019-05-03 00:06] LABS: PHOSPHOROUS 4.2 mg/dL (2.5-4.9)
[2019-05-03 00:14] LABS: T3 TOTAL 0.96 ng/mL
[2019-05-03 00:23] LABS: FREE T4 1.45 ng/dL (0.76-1.46); FREE THYROXINE INDEX 3.7 ug/dL (1.4-4.5); T4(THYROXINE) 10.5 ug/dL (4.7-13.3)
[2019-05-03 04:06] VITALS: BP 159/73
--- NOTE | 2019-05-03 07:23 | NUR ---
RECEIVED PT FROM SHIFT NURSE A/OX4. NO ACUTE DISTRESS NOTED. DENIES ABD PAIN AT THIS TIME. IV INTACT AND PATENT. BED IN LOW POSITION. CALL LIGHT WITHIN REACH. WILL CONTINUE TO MONITOR.
--- NOTE | 2019-05-03 09:00 | NUR ---
PT C/O OF GEN BODY PAIN. GAVE MORPINE ORDERED. WILL CONTINUE TO MONITOR.
[2019-05-03 09:04] VITALS: BP 155/75
--- NOTE | 2019-05-03 09:30 | NUR ---
PT ASLEEP BUT AROUSABLE. WILL CONTINUE TO MONITOR.
--- NOTE | 2019-05-03 11:49 | NUR ---
PT C/O OF GEN BODY PAIN. GAVE NORCO ORDERED. WILL CONTINUE TO MONITOR.
--- NOTE | 2019-05-03 12:41 | NUR ---
PT DENIES ANY PAIN AT THIS TIME. WILL CONTINUE TO MONITOR.
--- NOTE | 2019-05-03 15:36 | NUR ---
PT ASLEEP BUT AROUSABLE. NO ACUTE DISTRESS NOTED. CALL LIGHT WITHIN REACH. WILL CONTINUE TO MONITOR.
--- NOTE | 2019-05-03 16:26 | NUR ---
PT C/O OF GEN BODY PAIN. GAVE MORPHINE ORDERED. WILL CONTINUE TO MONITOR.
--- NOTE | 2019-05-03 16:55 | NUR ---
PT WATCHING TV IN BED. DENIES ANY PAIN AT THIS TIME. CALL LIGHT WITHIN REACH. WILL CONTINUE TO MONITOR.
[2019-05-03 17:09] VITALS: BP 154/82
--- NOTE | 2019-05-03 18:20 | NUR ---
PT RESTING IN BED WATCHING TV. NO C/O OF GENEARLIZED BODY PAIN. IV INTACT AND PATENT. BED IN LOW POSITION CALL LIGHT WITHIN REACH. WILL BE ENDORSED.
--- NOTE | 2019-05-03 19:22 | NUR ---
RECIEVED PT RESTING COMFORTABLY IN BED WITH NO ACUTE DISTRESS AT THIS TIME, FAMILY AT BEDSIDE, ASSESSMENT PERFORMED AT THIS TIME, PT DENIES PAIN AND SOB AT THIS TIME, PT IS A/OX4 NO COMPLAINTS OF SANCHEZ OR DIZZINESS AT THIS TIME, IV TO THE LEFT FOREARM INFUSING NS AT 125ML/HR, SAFETY PRECAUTIONS IN PLACE WILL CONTINUE TO MONITOR
[2019-05-03 20:28] VITALS: BP 159/81
--- NOTE | 2019-05-03 23:10 | NUR ---
PT SLEEPING IN BED WITH NO ACUTE DISTRESS AT THIS TIME, RESPIRATIONS EVEN AND UNLABORED, SAFETY PRECAUTIONS IN PLACE, WILL CONTINUE TO MONITOR
--- NOTE | 2019-05-04 00:01 | NUR ---
PT UP AND AMBULATING TO THE RESTROOM AND HAD SMALL VOID.
--- NOTE | 2019-05-04 03:34 | NUR ---
PT SLEEPING COMFORTABLY IN BED WITH NO ACUTE DISTRESS AT THIS TIME, REPIRATIONS EVEN AND UNLABORED, SAFETY PRECAUTIONS IN PLACE, WILL CONTINUE TO MONITOR
--- NOTE | 2019-05-04 05:17 | NUR ---
PT SLEPT THROUGH MOST OF THE NIGHT WITH NO ACUTE DISTRESS, PT HAD TWO EPISODES OF PAIN TREATED WITH MORPHINE AND NORCO PRN PER ORDER (SEE MAR), SAFETY PRECAUTIONS WERE MAINTAINED THROUGH THE NIGHT, WILL CONTINUE TO MONITOR AND ENDORSE CARE TO ONCOMING RN
[2019-05-04 06:23] LABS: BASOPHIL % 0.4 % (0-2); PLATELET COUNT 249 x10^3mcL (130-400)
[2019-05-04 06:44] LABS: CALCIUM 8.3 mg/dL (8.5-10.1); CARBON DIOXIDE 27.5 mmol/L (21-32); CREATININE SERUM 1.5 mg/dL (0.7-1.3); POTASSIUM SERUM 4.2 mmol/L (3.5-5.1)
--- NOTE | 2019-05-04 06:44 | NUR ---
PT BLOOD PRESSURE 166/84 MEDICATED FOR PAIN AND NAUSEA 30 MINUTES PRIOR WITH ZOFRAN AND MORPHINE, LET SOW FARM MANAGER CHANELL KNOW SAID IT WAS OK FOR NOW AND GAVE NO NEW ORDERS
[2019-05-04 06:45] VITALS: BP 166/84
--- NOTE | 2019-05-04 07:06 | NUR ---
RECEIVED PT FROM SHIFT NURSE ASLEEP BUT AROUSABLE. NO ACUTE DISTRESS NOTED. IV INTACT AND PATENT. CALL LIGHT WITHIN REACH. WILL CONTINUE TO MONITOR.
[2019-05-04 07:13] LABS: RED CELL DISTRIBUTION WIDTH 14.6 % (11.5-14.5)
--- NOTE | 2019-05-04 09:33 | NUR ---
PT C/O OF FLANK PAIN 08/22. GAVE NORCO ORDERED. WILL CONTINUE TO MONITOR.
[2019-05-04 10:03] VITALS: BP 154/76
--- NOTE | 2019-05-04 10:10 | NUR ---
PT ASLEEP BUT AROUSABLE. NO ACUTE DISTRESS NOTED. WILL CONTINUE TO MONITOR.
--- NOTE | 2019-05-04 12:08 | NUR ---
PT C/O OF NAUSEA. GAVE ZOFRAN ORDERED. WILL CONTINUE TO MONITOR.
--- NOTE | 2019-05-04 13:52 | NUR ---
PT C/O OF ABD PAIN 08/22. GAVE MORPHINE ORDERED. WILL CONTINUE TO MONITOR.
--- NOTE | 2019-05-04 14:00 | NUR ---
PT ASLEEP BUT AROUSABLE. FAMILY MEMBERS AT BEDSIDE. CALL LIGHT WITHIN REACH. WILL CONTINUE TO MONITOR.
--- NOTE | 2019-05-04 16:54 | NUR ---
PT C/O OF FLANK PAIN 08/22. GAVE MORPHINE ORDERED. WILL CONTINUE TO MONITOR.
--- NOTE | 2019-05-04 17:24 | NUR ---
PT RESTING IN BED TALKING WITH FAMILY MEMBERS. DENIES ANY FLANK PAIN AT THIS TIME. CALL LIGHT WITHIN REACH. WILL CONTINUE TO MONITOR.
[2019-05-04 18:10] VITALS: BP 178/80
--- NOTE | 2019-05-04 18:10 | NUR ---
NOTIFIED DR GILLESPIE OF HIGH BP 178/80. AWAITING NEW ORDERS. WILL CONTINUE TO MONITOR.
--- NOTE | 2019-05-04 18:34 | NUR ---
PT RESTING IN BED WATCHING TV. NO C/O OF FLANK PAIN AT THIS TIME. IV INTACT AND PATENT. BED IN LOW POSITION. CALL LIGHT WITHIN REACH. WILL BE ENDORSED.
--- NOTE | 2019-05-04 20:26 | NUR ---
PT RECIEVED FROM THE DAY SHIFT RN. PT IS ALERT AND ORIENTED X4, CALM AND COOPERATIVE WITH CARE. PT HAS NO COMPLAINT OF PAIN AT THIS TIME. NO ACUTE DISTRESS NOTED. PT IV IS INFUSING AND INTACT AT THIS TIME. SAFETY AND COMFORT MEASURES MAINTAINED, BED IN LOWEST POSITION. CALL LIGHT WITHIN REACH. WILL CONTINUE TO MONITOR AT THIS TIME.
--- NOTE | 2019-05-04 20:30 | NUR ---
PT BG IS 115, PAGED DR ANSARI, DR ANSARI CALLED BACK AND PER DR ANSARI WILL HOLD 25 UNITS OF LANTUS AT THIS TIME.
[2019-05-04 20:55] VITALS: BP 174/82
--- NOTE | 2019-05-04 21:56 | NUR ---
PT COMPLAINING OF ABDOMINAL PAIN. PT STATES PAIN IS 8/10 AND IS SHARP. IVP MORPHINE GIVEN PRN. WILL CONTINUE TO MONITOR.
[2019-05-04 23:12] VITALS: BP 155/76
--- NOTE | 2019-05-05 00:35 | NUR ---
PT IS RESTING IN BED WITH EYES CLOSED AT THIS TIME. NO ACUTE DISTRESS NOTED. PT HAS BEEN CALM AND COOPERATIVE WITH CARE AT THIS TIME. NO S/S OF PAIN NOTED. SAFETY AND COMFORT MEAUSURES MAINTAINED, BED IN LOWEST POSITION, CALL LIGHT WITHIN REACH.
--- NOTE | 2019-05-05 01:22 | NUR ---
PT COMPLAINING OF ABDOMINAL PAIN. PT STATES ACHING PAIN AND IS 8/10. IVP MORPHINE GIVEN. WILL REASSESS PAIN LEVEL.
--- NOTE | 2019-05-05 03:49 | NUR ---
PT IS RESTING IN BED WITH EYES CLOSED AT THIS TIME. NO ACUTE DISTRESS NOTED. IV INFUSING AND INTACT, SAFETY AND COMFORT MEASURES MAINTAINED, BED IN LOWEST POSITION, CALL LIGHT WITHIN REACH.
--- NOTE | 2019-05-05 05:18 | NUR ---
PT HAS RESTED IN LONG INTERVALS THROUGHOUT THE SHIFT. PT HAS BEEN ALERT AND ORIENTED X4. CALM AND COOPERATIVE WITH CARE. SAFETY AND COMFORT MEASURES MAINTAINED, BED IN LOWEST POSITION, CALL LIGHT WITHIN REACH. WILL ENDORSE CONTINUITY OF CARE TO THE ONCOMING RN.
[2019-05-05 05:21] VITALS: BP 159/77
--- NOTE | 2019-05-05 05:47 | NUR ---
PT COMPLAINING OF NAUSEA AND PAIN IN THE ABDOMEN. PT STATES PAIN IS 8/10 AND IS SHARP. IVP MORPHINE AND ZOFRAN GIVEN FOR PAIN AND NAUSEA.
[2019-05-05 06:38] LABS: CALCIUM 8.2 mg/dL (8.5-10.1); CHLORIDE SERUM 106 mmol/L (98-107); CREATININE SERUM 1.3 mg/dL (0.7-1.3); GFR1 > 60 mL/min; GLUCOSE SERUM 137 mg/dL (74-106); POTASSIUM SERUM 4.1 mmol/L (3.5-5.1); SODIUM SERUM 141 mmol/L (136-145)
[2019-05-05 06:49] LABS: BASOPHIL % 0.4 % (0-2); PLATELET COUNT 265 x10^3mcL (130-400); RED CELL DISTRIBUTION WIDTH 14.3 % (11.5-14.5)
--- NOTE | 2019-05-05 07:03 | NUR ---
RECEIVED BEDSIDE REPORT FROM EXECUTIVE MEETING MANAGER NURSE. PATIENT IS STABLE RESTING IN BED COMFORTABLY. NO APPARENT SIGNS OF PAIN, SOB, OR RESPIRATORY DISTRESS. ON TELE 19. PATIENT DENIES CHEST PAIN. ALERT, ORIENTED X4. IV TO LFA IS CDI. NO EDEMA OR ERYTHEMA NOTED AT SITE. CALL LIGHT WITHIN REACH. BED IN LOW POSITION, PATIENT HAS A PACEMAKER. LEFT UPPER CHEST. QUESTIONS AND CONCERNS ADDRESSED. SAFETY PRECAUTION IN PLACE.
--- NOTE | 2019-05-05 07:08 | NUR ---
RECEIVED BEDSIDE REPORT FROM EXTENSION PROFESSOR NURSE. PATIENT IS STABLE RESTING COMFORTABLY IN BED. NO APPARENT SIGNS OF PAIN, SOB, OR RESPIRATORY DISTRESS. PATIENT IS ALERT AND ORIENTED. IV TO LAC IS INFUSING WELL. NO EDEMA OR ERYTHEMA NOTED AT SITE. PATIENT ON ROOM AIR. CALL LIGHT WITHIN REACH. BED IN LOW POSITION, QUESTIONS AND CONCERNS ADDRESSED. SAFETY PRECAUTION IN PLACE.
--- NOTE | 2019-05-05 07:27 | NUR ---
PHYSICAL ASSESSMENT COMPLETED. PLEASE SEE PROBLEM FOCUSED CARE FOR DETAILS.
--- NOTE | 2019-05-05 07:38 | NUR ---
XU LUA AT BEDSIDE.
[2019-05-05 08:53] VITALS: BP 165/84
--- NOTE | 2019-05-05 08:59 | NUR ---
ADMINISTERED MEDICATION PER EMAR. PATIENT TOLORATED WELL. PATIENT EDUCATED ON NEED FOR MEDICATION WELL SDVERSE EFFECTS TO REPORT. PATIENT VERBALIZED UNDERSTANDING OF EDUCATION. CALL LIGHT WITHIN REACH. BED IN LOW POSITION. QUESTIONS AND CONCERNS ADDRESSED. PATIENT DENIES OTHER NEEDS AT THIS TIME. SAFETY PRECAUTIONS IN PLACE.
--- NOTE | 2019-05-05 12:19 | NUR ---
PATIENT IS SLEEPING COMFORTABLY IN BED. NO APPARENT SIGNS OF PAIN, SOB, OR RESPIRATORY DISTRESS. PATIENT IS ON ROOM AIR. CALL LIGHT WITHIN REACH, BED IN LOW POSITION, BED RAILS UP X2. SAFETY RPECAUTIONS IN PLACE.
--- NOTE | 2019-05-05 14:52 | NUR ---
PATIENT COMPLAINING OF PAIN TO LEFT FLANK RATED 7/10.ADMINISTERED MEDICATION PER EMAR. PATIENT TOLORATED WELL. PATIENT EDUCATED ON NEED FOR MEDICATION WELL SDVERSE EFFECTS TO REPORT. PATIENT VERBALIZED UNDERSTANDING OF EDUCATION. CALL LIGHT WITHIN REACH. BED IN LOW POSITION. QUESTIONS AND CONCERNS ADDRESSED. PATIENT DENIES OTHER NEEDS AT THIS TIME. SAFETY PRECAUTIONS IN PLACE.
--- NOTE | 2019-05-05 16:54 | NUR ---
PATIENT HAS BP OF 181/81. XU LUA MADE AWARE. XU LUA GAVE TELEPHONE ORDER FOR HYDRALAZINE 10MG PO ONCE FOR ELEVATED BP. PATIENT DENIES CHEST PAIN, NO APPARENT SIGNS OF SOB, OR RESPIRATORY DISTRESS. PATIENT DENIES SANCHEZ, OR DIZZINESS. TELEPHONE ORDER SUBMITTED.
[2019-05-05 17:30] VITALS: BP 181/81
--- NOTE | 2019-05-05 17:52 | NUR ---
PATIENT IS RESTING NO APPARENT PAIN, SOB, OR RESPIRATORY DISTRESS. PATIENT IS ON ROOM AIR. IV TO LFA IS INFUSING WELL, NS AT 125ML/HR. NO EDEMA OR ERYTHEMA NOTED AT SITE. PATIENT IS RESTING COMFORATBLY INBED EATING DINNER.FAMILY AT BEDSIDE. SCD'S AT BEDSIDE. BED IN LOW POSITION, BED RAILS UP X2. QUESTIONS AND CONCERNS ADDRESSED. PATIENT DIENIES OTHER NEEDS AT THIS TIME. SAFETY PRECAUTIONS IN PLACE. WILL ENDORSE CARE TO PULPER OPERATOR NURSE.
[2019-05-05 18:14] VITALS: BP 155/90
--- NOTE | 2019-05-05 18:57 | NUR ---
ENDORSED CARE TO MONOTYPE MACHINIST NURSE ALFRED.
--- NOTE | 2019-05-05 19:20 | NUR ---
ENDORSED CARE NO SEWING MACHINE OPERATOR ZIPPER NURSE ALFRED.
[2019-05-05 20:38] VITALS: BP 163/78
--- NOTE | 2019-05-06 00:03 | NUR ---
PT IS RESTING IN BED WITH EYES CLOSED AT THIS TIME. NO ACUTE DISTRESS NOTED. SAFETY AND COMFORT MEASURES MAINTAINED, BED IN LOWEST POSITION, CALL LIGHT WITHIN REACH.
--- NOTE | 2019-05-06 01:43 | NUR ---
PT COMPLAINING OF LEFT FLANK PAIN. PT STATES 8/10 PAIN AND IS SHARP PAIN. PRN NORCO GIVEN.
--- NOTE | 2019-05-06 04:00 | NUR ---
PT IS RESTING IN BED WITH EYES CLOSED AT THIS TIME. NO ACUTE DISTRESS NOTED. PT HAS BEEN CALM AND COOPERATIVE WITH CARE, SAFETY AND COMFORT MEASURES MAINTAINED, BED IN LOWEST POSITION, CALL LIGHT WITHIN REACH.
[2019-05-06 04:55] VITALS: BP 166/84
--- NOTE | 2019-05-06 05:07 | NUR ---
PT HAS SLEPT IN LONG INTERVALS THROUGHOUT THE SHIFT. PT HAS BEEN CALM AND COOPERATIVE WITH CARE. PT HAS NO COMPLAINT OF PAIN AT THIS TIME. PT IS ALERT AND ORIENTED X4, IV IS INFUSING AND INTACT AT THIS TIME. SAFETY AND COMFORT MEASURES MAINTAINED, BED IN LOWEST POSITION, CALL LIGHT WITHIN REACH. WILL ENDORSE CONTINUITY OF CARE TO THE ONCOMING RN.
[2019-05-06 07:41] LABS: BASOPHIL % 0.1 % (0-2); PLATELET COUNT 287 x10^3mcL (130-400); RED CELL DISTRIBUTION WIDTH 14.2 % (11.5-14.5)
--- NOTE | 2019-05-06 08:02 | NUR ---
A+OX4, NO RESPRIATORY DISTRESS NOTED, RESTING IN BED WITH EYES CLOSED, MEDSURG, PULSES MODERATE AND EQUAL EMILY, COMPLAINING OF FLANK PAIN, MEDICATED BY PREVIOUS NOC RN, MEDSURG, PULSES MODERATE AND EQUAL EMILY, TRACE EDEMA BLE, LUNG SOUNDS CTA, TOLERATING RA, BOWEL SOUNDS ACTIVE, VOIDING FREELY, AMBULATORY, SCABS RLE, IV IN LAC WITH NS @ 125 ML/HR, SITE WNL.
[2019-05-06 08:13] LABS: CALCIUM 8.7 mg/dL (8.5-10.1); CARBON DIOXIDE 22.3 mmol/L (21-32); CREATININE SERUM 1.4 mg/dL (0.7-1.3); POTASSIUM SERUM 4.1 mmol/L (3.5-5.1)
[2019-05-06 09:19] VITALS: BP 155/78
--- NOTE | 2019-05-06 09:51 | NUR ---
PT SITTING IN CHAIR AT BEDSIDE, COMPLAINING OF 9/10 FLANK PAIN, MORPHINE IVP GIVEN, PT ALSO COMPLAINING OF NAUSEA, ZOFRAN IVP GIVEN, NO RESPRIATORY DISTRESS NOTED, CALL LIGHT WITHIN REACH.
--- NOTE | 2019-05-06 12:05 | NUR ---
PT SITTING IN CHAIR AT BEDSIDE, COMPLAINING OF 8/10 FLANK PAIN, NORCO PO GIVEN, NO RESPRIATORY DISTRESS NOTED, CALL LIGHT WITHIN REACH.
[2019-05-06] MEDS ORDERED: FLO4 PO (12:12)
[2019-05-06] MEDS ORDERED: KETOROLAC TROME10 MG PO (12:14)
[2019-05-06] MEDS ORDERED: ZOF4 PO (12:16)
--- NOTE | 2019-05-06 12:37 | NUR ---
CHANELL MCNAIR AT BEDSIDE NOTIFIED THAT PT DOES NOT WANT TO DC. CHANELL AT BEDSIDE TO SPEAK TO PT. PT NOW AGREEABLE TO DC TODAY.
[2019-05-06 12:39] VITALS: BP 155/78
[2019-05-06 12:40] VITALS: BP 155/78
[2019-05-06] MEDS ORDERED: NORCO1 TA2 PO (12:47)
--- NOTE | 2019-05-06 13:48 | NUR ---
PT GIVEN DC INSTRUCTIONS INCLUDING PRESCRIPTIONS, NOTE FOR WORK, AND INSTRUCTED TO FOLLOW UP WITH UROLOGIST DR EDUARDO SWANN. PT GIVEN DR RODARTE NUMBER, ADDRESS, AND DATE OF APPT. PT VERBALIZED UNDERSTANDING. IV REMOVED WITH CATHETER INTACT, NO ERYTHEMA OR SWELLING TO SITE, GAUZE AND TAPE PLACED ON SITE. NO TELE, PT MEDSURG.
--- NOTE | 2019-05-06 14:14 | NUR ---
PT OFF UNIT VIA WHEELCHAIR WITH ALL BELONGINGS ESCORTED BY PUPPY TRAINER.
== END 2019-05-06 14:05 | disposition home or self-care (01) | DRG 465 ==
LOC: ED 16:52 → MU 22:42
PROVIDERS: Emergency Medicine; ADMIT General Practice
DX: N13.2 Hydronephrosis with renal and ureteral calculous obstruction (principal); N17.0 Acute kidney failure with tubular necrosis; E11.65 Type 2 diabetes mellitus with hyperglycemia; E44.0 Moderate protein-calorie malnutrition; I10 Essential (primary) hypertension; Z82.3 Family history of stroke; Z68.27 Body mass index [BMI] 27.0-27.9, adult
CPT/HCPCS: 82962; 84439; C9113; G0378; J1815; J1885; J2270; J2405; J2765; J7030

== ENCOUNTER 2019-11-20 06:54 | Inpatient (IN) | payer OTHER ==
[~2019-11-20] VITALS: Ht 170.2 cm; Wt 84.8 kg
[~2019-11-20 06:54] MED LIST changes: +FLO4 PO; +KETOROLAC TROME10 MG PO; +RELION HUMUL100 U/M2 IV; +ZOF4 PO
[2019-11-20 07:04] VITALS: Ht 170.2 cm; Wt 84.8 kg
[2019-11-20 08:50] LABS: BASOPHIL % 0.2 % (0-2); PLATELET COUNT 353 x10^3mcL (130-400); RED CELL DISTRIBUTION WIDTH 13.8 % (11.5-14.5)
[2019-11-20 08:58] LABS: BILIRUBIN TOTAL 0.4 mg/dL (0.20-1.00); CALCIUM 8.5 mg/dL (8.5-10.1); CARBON DIOXIDE 25.6 mmol/L (21-32); CREATININE SERUM 1.7 mg/dL (0.7-1.3); POTASSIUM SERUM 3.9 mmol/L (3.5-5.1); TOTAL PROTEIN, SERUM 6.7 g/dL (6.4-8.2)
[2019-11-20 09:01] LABS: ALBUMIN 1.9 g/dL (3.4-5.0)
[2019-11-20 11:21] LABS: CHOLESTEROL/HDL RATIO 4.1; MAGNESIUM 2.2 mg/dL (1.8-2.4); PHOSPHOROUS 3.8 mg/dL (2.5-4.9)
[2019-11-20 12:31] VITALS: BP 173/70
[2019-11-20 13:08] LABS: microscopic required? YES; urine erythrocyte 2+ (NEGATIVE)
[2019-11-20 16:27] VITALS: BP 155/72
[2019-11-20 20:32] VITALS: BP 132/62
[2019-11-21 04:47] VITALS: BP 160/74
[2019-11-21 06:29] LABS: CALCIUM 7.6 mg/dL (8.5-10.1); CARBON DIOXIDE 23.6 mmol/L (21-32); CREATININE SERUM 1.5 mg/dL (0.7-1.3); POTASSIUM SERUM 3.2 mmol/L (3.5-5.1)
[2019-11-21 07:23] LABS: BASOPHIL % 0.5 % (0-2); PLATELET COUNT 318 x10^3mcL (130-400); RED CELL DISTRIBUTION WIDTH 13.7 % (11.5-14.5)
[2019-11-21 07:59] VITALS: BP 165/62
[2019-11-21 10:07] VITALS: BP 156/76
[2019-11-21 15:28] VITALS: BP 155/79
[2019-11-21 17:12] VITALS: BP 148/80
[2019-11-21 20:01] VITALS: BP 130/76
[2019-11-22 05:26] VITALS: BP 140/70
[2019-11-22 06:22] LABS: BASOPHIL % 0.3 % (0-2); PLATELET COUNT 314 x10^3mcL (130-400); RED CELL DISTRIBUTION WIDTH 13.7 % (11.5-14.5)
[2019-11-22 07:01] LABS: CALCIUM 7.8 mg/dL (8.5-10.1); CARBON DIOXIDE 22.9 mmol/L (21-32); CREATININE SERUM 1.6 mg/dL (0.7-1.3); POTASSIUM SERUM 3.9 mmol/L (3.5-5.1)
[2019-11-22 07:44] VITALS: BP 142/69
[2019-11-22 11:47] VITALS: BP 177/76
[2019-11-22 16:37] VITALS: BP 146/79
[2019-11-22 20:06] VITALS: BP 116/69
[2019-11-23 05:26] VITALS: BP 167/85
[2019-11-23 06:31] LABS: BASOPHIL % 0.4 % (0-2); PLATELET COUNT 297 x10^3mcL (130-400); RED CELL DISTRIBUTION WIDTH 14.1 % (11.5-14.5)
[2019-11-23 06:49] LABS: CALCIUM 7.8 mg/dL (8.5-10.1); CARBON DIOXIDE 24.5 mmol/L (21-32); CREATININE SERUM 1.5 mg/dL (0.7-1.3); POTASSIUM SERUM 3.2 mmol/L (3.5-5.1)
[2019-11-23 07:34] VITALS: BP 167/78
[2019-11-23 11:17] VITALS: BP 148/78
[2019-11-23 16:06] VITALS: BP 143/71
[2019-11-23 19:28] VITALS: BP 158/81
[2019-11-24 04:26] VITALS: BP 159/84
[2019-11-24 07:02] LABS: BASOPHIL % 0.3 % (0-2); PLATELET COUNT 280 x10^3mcL (130-400); RED CELL DISTRIBUTION WIDTH 13.9 % (11.5-14.5)
[2019-11-24 07:04] LABS: CALCIUM 7.9 mg/dL (8.5-10.1); CARBON DIOXIDE 27.3 mmol/L (21-32); CREATININE SERUM 1.4 mg/dL (0.7-1.3); POTASSIUM SERUM 3.4 mmol/L (3.5-5.1)
[2019-11-24 08:08] VITALS: BP 173/87
[2019-11-24] MEDS ORDERED: CLEOCIN HCL300 MG PO (11:55)
[2019-11-24 12:05] VITALS: BP 162/95
[2019-11-24 12:15] VITALS: BP 162/95
== END 2019-11-24 13:15 | disposition home or self-care (01) | DRG 253 ==
LOC: ED 06:54 → DU 10:28
PROVIDERS: Emergency Medicine; Internal Medicine Gastroenterology; Surgery; ADMIT Family Medicine
PROC: 0DB68ZX Excision of Stomach, Via Natural or Artificial Opening Endoscopic, Diagnostic (ICD-10-PCS; principal; 2019-11-21 08:00)
PROC: 0JBM0ZZ Excision of Left Upper Leg Subcutaneous Tissue and Fascia, Open Approach (ICD-10-PCS; 2019-11-21 08:00)
DX: K92.2 Gastrointestinal hemorrhage, unspecified (principal); N17.0 Acute kidney failure with tubular necrosis; L02.416 Cutaneous abscess of left lower limb; E11.65 Type 2 diabetes mellitus with hyperglycemia; E87.1 Hypo-osmolality and hyponatremia; E11.22 Type 2 diabetes mellitus with diabetic chronic kidney disease; L03.116 Cellulitis of left lower limb; G89.29 Other chronic pain; Z82.3 Family history of stroke; E87.6 Hypokalemia; I12.9 Hypertensive chronic kidney disease with stage 1 through stage 4 chronic kidney disease, or unspecified chronic kidney disease; N18.9 Chronic kidney disease, unspecified
CPT/HCPCS: 43235; 82947; 82962; C9113; G0378; J0690; J0696; J1200; J1610; J1815; J1940; J2001; J2250; J2270; J2310; J2405; J2704; J2765; J3010; J3370; J3490; J7030; J7040; J7050; J7060; Q0092

== ENCOUNTER 2020-05-26 15:36 | Inpatient (IN) | payer OTHER, SELFPAY ==
[~2020-05-26] VITALS: Ht 167.6 cm; Wt 81.6 kg
[~2020-05-26 15:36] MED LIST changes: +CLEOCIN HCL300 MG PO
[2020-05-26 15:47] VITALS: Ht 167.6 cm; Wt 81.6 kg
[2020-05-26 17:18] LABS: CARBON DIOXIDE 27.1 mmol/L (21-32); CREATININE SERUM 2.3 mg/dL (0.7-1.3); POTASSIUM SERUM 3.6 mmol/L (3.5-5.1)
[2020-05-26 17:23] LABS: BILIRUBIN TOTAL 0.1 mg/dL (0.20-1.00)
[2020-05-26 17:25] LABS: ALBUMIN 1.4 g/dL (3.4-5.0); TOTAL PROTEIN, SERUM 5.8 g/dL (6.4-8.2)
[2020-05-26 17:27] LABS: BASOPHIL % 0.5 % (0-2); PLATELET COUNT 235 x10^3mcL (130-400); RED CELL DISTRIBUTION WIDTH 16.3 % (11.5-14.5)
[2020-05-26] MEDS ORDERED: NORCO1 TA2 PO (18:37)
[2020-05-26] MEDS ORDERED: HUMULIN R100 U/1 M1 (18:39)
[2020-05-26 18:58] LABS: C REACTIVE PROTEIN 7.1 mg/dL (<=0.9)
[2020-05-26 20:06] LABS: CHOLESTEROL/HDL RATIO 3.2; MAGNESIUM 2.1 mg/dL (1.8-2.4); PHOSPHOROUS 3.5 mg/dL (2.5-4.9)
[2020-05-27 01:28] VITALS: BP 165/77
[2020-05-27 06:18] VITALS: BP 165/81
[2020-05-27 07:04] LABS: BASOPHIL % 0.4 % (0-2); PLATELET COUNT 242 x10^3mcL (130-400)
[2020-05-27 07:13] LABS: RED CELL DISTRIBUTION WIDTH 16.5 % (11.5-14.5)
[2020-05-27 07:53] LABS: C REACTIVE PROTEIN 5.7 mg/dL (<=0.9); CALCIUM 7.1 mg/dL (8.5-10.1); CARBON DIOXIDE 24.5 mmol/L (21-32); CREATININE SERUM 2.1 mg/dL (0.7-1.3); PHOSPHOROUS 3.3 mg/dL (2.5-4.9); POTASSIUM SERUM 3.3 mmol/L (3.5-5.1)
[2020-05-27 07:57] LABS: ALBUMIN 1.3 g/dL (3.4-5.0); TOTAL PROTEIN, SERUM 5.6 g/dL (6.4-8.2)
[2020-05-27 08:33] LABS: BILIRUBIN TOTAL 0.09 mg/dL (0.20-1.00)
[2020-05-27 08:52] VITALS: BP 157/101
[2020-05-27 08:59] LABS: UA SPECIFIC GRAVITY 1.015 (1.005-1.035); microscopic required? YES; urine erythrocyte 1+ (NEGATIVE)
[2020-05-27 10:41] LABS: CREATININE UR 41.3 mg/dL (0.95-2.49)
[2020-05-27 10:45] LABS: AMPHETAMINE QUAL UR NONE DETECTED (See below)
[2020-05-27 12:32] VITALS: BP 153/79
[2020-05-27 16:26] VITALS: BP 151/73
[2020-05-27 19:35] VITALS: BP 159/84
[2020-05-28 06:09] VITALS: BP 178/80
[2020-05-28 06:40] VITALS: BP 158/84
[2020-05-28 07:47] LABS: BASOPHIL % 0.4 % (0-2); PLATELET COUNT 257 x10^3mcL (130-400)
[2020-05-28 07:54] LABS: RED CELL DISTRIBUTION WIDTH 15.8 % (11.5-14.5)
[2020-05-28 08:05] LABS: CALCIUM 7.3 mg/dL (8.5-10.1); CARBON DIOXIDE 25.4 mmol/L (21-32); CREATININE SERUM 2.2 mg/dL (0.7-1.3); MAGNESIUM 1.9 mg/dL (1.8-2.4); PHOSPHOROUS 3.2 mg/dL (2.5-4.9); POTASSIUM SERUM 3.3 mmol/L (3.5-5.1)
[2020-05-28 10:05] VITALS: BP 156/75
[2020-05-28 17:34] VITALS: BP 147/73
[2020-05-28 21:57] VITALS: BP 156/71
[2020-05-29 06:33] VITALS: BP 154/73
[2020-05-29 08:29] LABS: BASOPHIL % 1.2 % (0-2); PLATELET COUNT 182 x10^3mcL (130-400)
[2020-05-29 08:36] LABS: RED CELL DISTRIBUTION WIDTH 16.6 % (11.5-14.5)
[2020-05-29 08:52] LABS: CALCIUM 7.3 mg/dL (8.5-10.1); CARBON DIOXIDE 22.8 mmol/L (21-32); CREATININE SERUM 2.2 mg/dL (0.7-1.3); MAGNESIUM 1.8 mg/dL (1.8-2.4); PHOSPHOROUS 3.1 mg/dL (2.5-4.9); POTASSIUM SERUM 3.5 mmol/L (3.5-5.1)
[2020-05-29 09:17] VITALS: BP 143/65
[2020-05-29] MEDS ORDERED: KLOR-CON M2020 MEQ PO (12:04)
[2020-05-29] MEDS ORDERED: DECADRON6 MG PO (12:05)
[2020-05-29] MEDS ORDERED: BUM1 PO (12:06)
[2020-05-29] MEDS ORDERED: ELIQUIS2.5 MG PO (12:13)
[2020-05-29] MEDS ORDERED: APR25 PO (13:04)
[2020-05-29] MEDS ORDERED: CARVEDILOL12.5 M1 PO (13:05)
[2020-05-29 13:44] VITALS: BP 140/69
[2020-05-29 14:02] VITALS: BP 140/69
== END 2020-05-29 16:19 | disposition home or self-care (01) | DRG 137 ==
LOC: ED 15:36 → DU 19:06 → EDBEDREQ 19:07 → DU 05-27 01:14 → MU 05-27 01:14 → DU 05-27 01:35 → MU 05-28 21:45 → DU 05-29 04:55
PROVIDERS: Emergency Medicine; Family Medicine; Internal Medicine; ADMIT Internal Medicine; ATTEND Internal Medicine
DX: U07.1 COVID-19 (principal); N17.0 Acute kidney failure with tubular necrosis; J96.01 Acute respiratory failure with hypoxia; E11.21 Type 2 diabetes mellitus with diabetic nephropathy; E11.22 Type 2 diabetes mellitus with diabetic chronic kidney disease; E11.65 Type 2 diabetes mellitus with hyperglycemia; E87.1 Hypo-osmolality and hyponatremia; D64.9 Anemia, unspecified; E88.09 Other disorders of plasma-protein metabolism, not elsewhere classified; I12.9 Hypertensive chronic kidney disease with stage 1 through stage 4 chronic kidney disease, or unspecified chronic kidney disease; N18.3 Chronic kidney disease, stage 3 (moderate); E11.319 Type 2 diabetes mellitus with unspecified diabetic retinopathy without macular edema; J12.89 Other viral pneumonia; Z79.899 Other long term (current) drug therapy; Z79.4 Long term (current) use of insulin; Z82.3 Family history of stroke
CPT/HCPCS: 36600; 82962; 83880; G0378; J0456; J0696; J0885-EC; J1100; J1644; J1940; J1956; J2405; J2543; J3490; J7050; J7060; P9047; Q0092; U0003-CS

== ENCOUNTER 2020-06-29 05:43 | Inpatient (IN) | payer OTHER, SELFPAY ==
[2020-06-29] VITALS (12 sets, daily range): BP systolic 82–182; BP diastolic 52–89
[~2020-06-29] VITALS: Ht 170.2 cm; Wt 95.9 kg
[~2020-06-29 05:43] MED LIST changes: +APR25 PO; +BUM1 PO; +CARVEDILOL12.5 M1 PO; +DECADRON6 MG PO; +ELIQUIS2.5 MG PO; +HUMULIN R100 U/1 M1; +KLOR-CON M2020 MEQ PO
[2020-06-29 07:50] LABS: BILIRUBIN TOTAL 0.5 mg/dL (0.20-1.00); CALCIUM 7.8 mg/dL (8.5-10.1); CARBON DIOXIDE 12.7 mmol/L (21-32); CREATININE SERUM 3.3 mg/dL (0.7-1.3); POTASSIUM SERUM 5.3 mmol/L (3.5-5.1)
[2020-06-29 07:53] LABS: ALBUMIN 1.6 g/dL (3.4-5.0); TOTAL PROTEIN, SERUM 4.8 g/dL (6.4-8.2)
[2020-06-29 08:16] LABS: UA SPECIFIC GRAVITY 1.025 (1.005-1.035); urine erythrocyte 2+ (NEGATIVE)
[2020-06-29 08:24] LABS: BASOPHIL % 0.6 % (0-2); PLATELET COUNT 324 x10^3mcL (130-400); RED CELL DISTRIBUTION WIDTH 17.1 % (11.5-14.5)
[2020-06-29 09:11] LABS: microscopic required? YES
[2020-06-29 10:36] LABS: AMPHETAMINE QUAL UR NONE DETECTED (See below)
[2020-06-29 11:27] LABS: FREE T4 1.03 ng/dL (0.76-1.46); FREE THYROXINE INDEX 2.3 ug/dL (1.4-4.5); T4(THYROXINE) 5.9 ug/dL (4.7-13.3)
[2020-06-29 11:55] LABS: T3 TOTAL 0.35 ng/mL
[2020-06-29 12:19] LABS: CHOLESTEROL/HDL RATIO 4.8
[2020-06-29 14:53] LABS: CALCIUM 7.8 mg/dL (8.5-10.1); CARBON DIOXIDE 22.9 mmol/L (21-32); CREATININE SERUM 3.5 mg/dL (0.7-1.3); POTASSIUM SERUM 4.1 mmol/L (3.5-5.1)
[2020-06-29 16:42] LABS: CALCIUM 7.4 mg/dL (8.5-10.1); CARBON DIOXIDE 23.1 mmol/L (21-32); CREATININE SERUM 3.5 mg/dL (0.7-1.3); PHOSPHOROUS 4.5 mg/dL (2.5-4.9); POTASSIUM SERUM 3.9 mmol/L (3.5-5.1)
[2020-06-30] VITALS (13 sets, daily range): BP systolic 135–174; BP diastolic 61–83
[2020-06-30 06:19] LABS: PLATELET COUNT 255 x10^3mcL (130-400)
[2020-06-30 06:20] LABS: BASOPHIL % 0 % (0-2); RED CELL DISTRIBUTION WIDTH 17.5 % (11.5-14.5)
[2020-06-30 06:39] LABS: CALCIUM 7.4 mg/dL (8.5-10.1); CARBON DIOXIDE 19.1 mmol/L (21-32); CREATININE SERUM 3.1 mg/dL (0.7-1.3); MAGNESIUM 2.2 mg/dL (1.8-2.4); POTASSIUM SERUM 3.6 mmol/L (3.5-5.1)
[2020-06-30 15:41] LABS: BASOPHIL % 0.1 % (0-2); PLATELET COUNT 261 x10^3mcL (130-400)
[2020-06-30 15:42] LABS: RED CELL DISTRIBUTION WIDTH 18.3 % (11.5-14.5)
[2020-07-01] VITALS: BP 138/74
[2020-07-01 04:45] VITALS: BP 145/60
[2020-07-01 07:25] LABS: PLATELET COUNT 239 x10^3mcL (130-400)
[2020-07-01 07:29] LABS: BASOPHIL % 0 % (0-2); RED CELL DISTRIBUTION WIDTH 18.9 % (11.5-14.5)
[2020-07-01 07:37] LABS: CALCIUM 7.4 mg/dL (8.5-10.1); CARBON DIOXIDE 23.8 mmol/L (21-32); CREATININE SERUM 3.1 mg/dL (0.7-1.3); PHOSPHOROUS 4.4 mg/dL (2.5-4.9); POTASSIUM SERUM 3.9 mmol/L (3.5-5.1)
[2020-07-01 08:07] VITALS: BP 120/72; BP 154/80
[2020-07-01 13:02] VITALS: BP 157/61
[2020-07-01 16:34] VITALS: BP 150/61
[2020-07-01 21:35] VITALS: BP 152/72
[2020-07-02 06:42] VITALS: BP 148/69
[2020-07-02 08:01] LABS: BASOPHIL % 1.7 % (0-2); PLATELET COUNT 302 x10^3mcL (130-400)
[2020-07-02 08:04] LABS: RED CELL DISTRIBUTION WIDTH 17.5 % (11.5-14.5)
[2020-07-02 08:16] LABS: CALCIUM 7.3 mg/dL (8.5-10.1); CARBON DIOXIDE 29.4 mmol/L (21-32); POTASSIUM SERUM 3.5 mmol/L (3.5-5.1)
[2020-07-02 09:30] VITALS: BP 165/70
[2020-07-02] MEDS ORDERED: BUM1 PO (10:51)
[2020-07-02] MEDS ORDERED: LANTI SQ (10:52)
[2020-07-02] MEDS ORDERED: HUMULIN R100 U/1 M1 SC (10:54)
[2020-07-02] MEDS ORDERED: INSULIN SYRING1 EA29 SQ (10:56)
[2020-07-02] MEDS ORDERED: CIPRO500 MG PO (11:22)
[2020-07-02 12:00] VITALS: BP 139/83
[2020-07-02 12:49] VITALS: BP 139/83
== END 2020-07-02 17:15 | disposition home or self-care (01) | DRG 420 ==
LOC: ED 05:43 → IC 09:31 → DU 06-30 18:43
PROVIDERS: Emergency Medicine; Student in an Organized Health Care Education/Training Program; ADMIT Internal Medicine; ATTEND Internal Medicine
DX: E11.10 Type 2 diabetes mellitus with ketoacidosis without coma (principal); U07.1 COVID-19; E87.5 Hyperkalemia; D64.9 Anemia, unspecified; I12.9 Hypertensive chronic kidney disease with stage 1 through stage 4 chronic kidney disease, or unspecified chronic kidney disease; E11.22 Type 2 diabetes mellitus with diabetic chronic kidney disease; N18.9 Chronic kidney disease, unspecified; N40.0 Benign prostatic hyperplasia without lower urinary tract symptoms; N39.0 Urinary tract infection, site not specified; E11.21 Type 2 diabetes mellitus with diabetic nephropathy; D63.1 Anemia in chronic kidney disease; K81.9 Cholecystitis, unspecified; Z82.3 Family history of stroke; Z79.899 Other long term (current) drug therapy
CPT/HCPCS: 82962; 83880; 84439; G0378; J0360; J0780; J1815; J2270; J2405; J2543; J3490; J7030; J7050; Q0092; U0003-CS

== ENCOUNTER 2020-07-22 00:25 | Inpatient (IN) | payer OTHER ==
[~2020-07-22] VITALS: Ht 170.2 cm; Wt 91.6 kg
[~2020-07-22 00:25] MED LIST changes: +INSULIN SYRING1 EA29 SQ
[2020-07-22 00:35] VITALS: Ht 170.2 cm; Wt 91.6 kg
[2020-07-22 01:48] LABS: BASOPHIL % 0.4 % (0-2)
[2020-07-22 01:52] LABS: PLATELET COUNT 404 x10^3mcL (130-400); RED CELL DISTRIBUTION WIDTH 15.8 % (11.5-14.5)
[2020-07-22 02:05] LABS: BILIRUBIN TOTAL 0.1 mg/dL (0.20-1.00); CALCIUM 7.8 mg/dL (8.5-10.1); CARBON DIOXIDE 23.4 mmol/L (21-32); CREATININE SERUM 2.8 mg/dL (0.7-1.3)
[2020-07-22 02:07] LABS: ALBUMIN 1.3 g/dL (3.4-5.0); TOTAL PROTEIN, SERUM 5.1 g/dL (6.4-8.2)
[2020-07-22 02:08] LABS: POTASSIUM SERUM 5.6 mmol/L (3.5-5.1)
[2020-07-22] MEDS ORDERED: DEXAMETHASONE2 MG PO (02:55)
[2020-07-22] MEDS ORDERED: HYDRALAZINE HCL25 MG PO (02:55)
[2020-07-22] MEDS ORDERED: NORCO 10-325 T1 EACH PO (02:55)
[2020-07-22] MEDS ORDERED: DECADRON4 MG PO (02:56)
[2020-07-22 03:18] LABS: MAGNESIUM 2.1 mg/dL (1.8-2.4); PHOSPHOROUS 4.5 mg/dL (2.5-4.9)
[2020-07-22 03:25] LABS: T3 TOTAL 0.78 ng/mL
[2020-07-22 03:27] LABS: FREE T4 1.28 ng/dL (0.76-1.46); FREE THYROXINE INDEX 2.9 ug/dL (1.4-4.5); T4(THYROXINE) 8.1 ug/dL (4.7-13.3)
[2020-07-22 03:52] LABS: CHOLESTEROL/HDL RATIO 2.4
[2020-07-22 06:25] VITALS: BP 187/87
[2020-07-22 08:58] VITALS: BP 146/76
[2020-07-22 12:22] LABS: CALCIUM 7.5 mg/dL (8.5-10.1); CREATININE SERUM 2.6 mg/dL (0.7-1.3); POTASSIUM SERUM 5.5 mmol/L (3.5-5.1)
[2020-07-22 13:32] VITALS: BP 159/80
[2020-07-22 16:36] VITALS: BP 135/67
[2020-07-22 20:19] VITALS: BP 108/59
[2020-07-23 05:57] VITALS: BP 105/68
[2020-07-23 07:11] LABS: CALCIUM 7.7 mg/dL (8.5-10.1); CARBON DIOXIDE 22.7 mmol/L (21-32); CREATININE SERUM 2.7 mg/dL (0.7-1.3); PHOSPHOROUS 4.6 mg/dL (2.5-4.9); POTASSIUM SERUM 5.2 mmol/L (3.5-5.1)
[2020-07-23 07:24] LABS: BASOPHIL % 0.4 % (0-2); PLATELET COUNT 290 x10^3mcL (130-400)
[2020-07-23 07:31] LABS: RED CELL DISTRIBUTION WIDTH 17.3 % (11.5-14.5)
[2020-07-23 08:00] VITALS: BP 135/68
[2020-07-23 11:30] VITALS: BP 126/66
[2020-07-23 16:47] VITALS: BP 115/59
[2020-07-23 21:05] VITALS: BP 128/65
[2020-07-24 05:58] VITALS: BP 137/64
[2020-07-24 09:07] LABS: BASOPHIL % 0.3 % (0-2); CALCIUM 8.4 mg/dL (8.5-10.1); CARBON DIOXIDE 22.6 mmol/L (21-32); CREATININE SERUM 2.9 mg/dL (0.7-1.3); PHOSPHOROUS 4.7 mg/dL (2.5-4.9); PLATELET COUNT 282 x10^3mcL (130-400); POTASSIUM SERUM 4.8 mmol/L (3.5-5.1)
[2020-07-24 09:26] VITALS: BP 136/68
[2020-07-24 11:05] LABS: rbc morphology (normal/abnorm) ABNORMAL (NORMAL)
[2020-07-24 11:12] LABS: rbc morphology (normal/abnorm) ABNORMAL (NORMAL)
[2020-07-24 12:18] VITALS: BP 108/51
[2020-07-24 13:07] LABS: IRON 10 ug/dL (65-170); TOTAL IRON BINDING CAPACITY 68 ug/dL (250-450)
[2020-07-24 17:12] VITALS: BP 137/70
[2020-07-24 21:31] VITALS: BP 138/59
[2020-07-25 05:33] VITALS: BP 136/57
[2020-07-25 07:14] LABS: BASOPHIL % 0.5 % (0-2); PLATELET COUNT 287 x10^3mcL (130-400)
[2020-07-25 07:41] LABS: RED CELL DISTRIBUTION WIDTH 17.6 % (11.5-14.5)
[2020-07-25 07:43] LABS: CARBON DIOXIDE 22.9 mmol/L (21-32); PHOSPHOROUS 4.6 mg/dL (2.5-4.9); POTASSIUM SERUM 4.4 mmol/L (3.5-5.1)
[2020-07-25 07:51] LABS: ALBUMIN 1.8 g/dL (3.4-5.0)
[2020-07-25 09:55] VITALS: BP 1136/66; BP 136/66; BP 148/70
[2020-07-25 13:23] VITALS: BP 148/70
[2020-07-25 18:55] VITALS: BP 146/65
[2020-07-25 20:30] VITALS: BP 150/83
[2020-07-25 20:57] VITALS: BP 167/76
[2020-07-26 06:11] VITALS: BP 150/72
[2020-07-26 08:15] VITALS: BP 147/68
[2020-07-26 08:21] LABS: CALCIUM 8.4 mg/dL (8.5-10.1); CARBON DIOXIDE 22.9 mmol/L (21-32); CREATININE SERUM 2.8 mg/dL (0.7-1.3); PHOSPHOROUS 4.8 mg/dL (2.5-4.9); POTASSIUM SERUM 4.1 mmol/L (3.5-5.1)
[2020-07-26 08:22] LABS: ALBUMIN 2.5 g/dL (3.4-5.0)
[2020-07-26 08:26] LABS: BASOPHIL % 0.2 % (0-2); PLATELET COUNT 291 x10^3mcL (130-400)
[2020-07-26 08:36] LABS: RED CELL DISTRIBUTION WIDTH 17.2 % (11.5-14.5)
[2020-07-26 12:31] VITALS: BP 134/66
[2020-07-26 13:57] VITALS: BP 142/67
[2020-07-26 16:54] VITALS: BP 147/67
[2020-07-26 20:22] VITALS: BP 155/65
[2020-07-27 06:15] VITALS: BP 153/65
[2020-07-27 06:41] LABS: BASOPHIL % 0.2 % (0-2); PLATELET COUNT 306 x10^3mcL (130-400)
[2020-07-27 06:51] LABS: CARBON DIOXIDE 27.9 mmol/L (21-32); CREATININE SERUM 2.9 mg/dL (0.7-1.3); PHOSPHOROUS 4.8 mg/dL (2.5-4.9); POTASSIUM SERUM 3.8 mmol/L (3.5-5.1); RED CELL DISTRIBUTION WIDTH 17.5 % (11.5-14.5)
[2020-07-27 06:53] LABS: ALBUMIN 2.4 g/dL (3.4-5.0)
[2020-07-27 08:06] VITALS: BP 160/67
[2020-07-27 12:11] VITALS: BP 154/67
[2020-07-27 16:17] VITALS: BP 145/63
[2020-07-27 20:40] VITALS: BP 124/73
[2020-07-28 05:17] VITALS: BP 172/78
[2020-07-28 08:04] LABS: BASOPHIL % 0.3 % (0-2); PLATELET COUNT 314 x10^3mcL (130-400)
[2020-07-28 08:11] LABS: RED CELL DISTRIBUTION WIDTH 16.5 % (11.5-14.5)
[2020-07-28 08:13] VITALS: BP 163/76
[2020-07-28 08:20] LABS: CALCIUM 8.3 mg/dL (8.5-10.1); CARBON DIOXIDE 26.1 mmol/L (21-32); CREATININE SERUM 2.5 mg/dL (0.7-1.3); PHOSPHOROUS 4.1 mg/dL (2.5-4.9); POTASSIUM SERUM 3.3 mmol/L (3.5-5.1)
[2020-07-28 12:51] VITALS: BP 166/74
[2020-07-28 16:12] VITALS: BP 167/76
[2020-07-28 19:27] VITALS: BP 170/71
[2020-07-29 05:03] VITALS: BP 173/78
[2020-07-29 07:00] LABS: PLATELET COUNT 311 x10^3mcL (130-400)
[2020-07-29 07:22] LABS: BASOPHIL % 0 % (0-2); RED CELL DISTRIBUTION WIDTH 16.2 % (11.5-14.5)
[2020-07-29 08:35] VITALS: BP 165/64
[2020-07-29 08:44] LABS: CALCIUM 8.2 mg/dL (8.5-10.1); CARBON DIOXIDE 25.6 mmol/L (21-32); CREATININE SERUM 2.6 mg/dL (0.7-1.3); POTASSIUM SERUM 3.2 mmol/L (3.5-5.1)
[2020-07-29 12:25] VITALS: BP 157/66
[2020-07-29 17:37] VITALS: BP 155/72
[2020-07-29 20:33] VITALS: BP 173/75
[2020-07-30 05:19] VITALS: BP 130/61
[2020-07-30 07:06] LABS: PLATELET COUNT 358 x10^3mcL (130-400)
[2020-07-30 07:12] LABS: BASOPHIL % 0 % (0-2); RED CELL DISTRIBUTION WIDTH 16.4 % (11.5-14.5)
[2020-07-30 07:31] LABS: CALCIUM 8.6 mg/dL (8.5-10.1); CARBON DIOXIDE 23.4 mmol/L (21-32); CREATININE SERUM 2.8 mg/dL (0.7-1.3); MAGNESIUM 2.1 mg/dL (1.8-2.4); POTASSIUM SERUM 3.1 mmol/L (3.5-5.1)
[2020-07-30 08:45] VITALS: BP 133/61
[2020-07-30 13:36] VITALS: BP 128/62
[2020-07-30 15:16] LABS: microscopic required? YES; urine erythrocyte 3+ (NEGATIVE)
[2020-07-30 18:16] VITALS: BP 152/68
[2020-07-30 20:52] VITALS: BP 154/70
[2020-07-31] VITALS (8 sets, daily range): BP systolic 124–176; BP diastolic 60–76
[2020-07-31 07:39] LABS: CALCIUM 8.4 mg/dL (8.5-10.1); CARBON DIOXIDE 24.3 mmol/L (21-32); CREATININE SERUM 3.3 mg/dL (0.7-1.3)
[2020-07-31 08:24] LABS: BASOPHIL % 0.1 % (0-2); PLATELET COUNT 382 x10^3mcL (130-400)
[2020-07-31 08:25] LABS: RED CELL DISTRIBUTION WIDTH 16.6 % (11.5-14.5)
[2020-07-31 15:25] LABS: RED BLOOD CELLS 2.51 M/mm3 (4.52-5.90)
[2020-08-01 00:15] VITALS: BP 132/76
[2020-08-01 05:10] VITALS: BP 151/62
[2020-08-01 07:04] LABS: BASOPHIL % 0.1 % (0-2)
[2020-08-01 08:08] LABS: PLATELET COUNT 405 x10^3mcL (130-400); RED CELL DISTRIBUTION WIDTH 16.4 % (11.5-14.5)
[2020-08-01 08:32] VITALS: BP 148/64
[2020-08-01 09:37] LABS: CALCIUM 8.3 mg/dL (8.5-10.1); CARBON DIOXIDE 27.9 mmol/L (21-32); CREATININE SERUM 3.6 mg/dL (0.7-1.3); MAGNESIUM 2.4 mg/dL (1.8-2.4)
[2020-08-01 09:44] LABS: POTASSIUM SERUM 2.7 mmol/L (3.5-5.1)
[2020-08-01 13:04] VITALS: BP 164/71
[2020-08-01 17:15] VITALS: BP 127/39
[2020-08-01 20:50] VITALS: BP 157/71
[2020-08-02 05:48] VITALS: BP 134/67
[2020-08-02 07:01] LABS: BASOPHIL % 0.1 % (0-2); PLATELET COUNT 392 x10^3mcL (130-400)
[2020-08-02 07:58] LABS: CALCIUM 8.2 mg/dL (8.5-10.1); CARBON DIOXIDE 31.4 mmol/L (21-32); CREATININE SERUM 3.3 mg/dL (0.7-1.3); MAGNESIUM 2.4 mg/dL (1.8-2.4)
[2020-08-02 08:00] LABS: POTASSIUM SERUM 2.8 mmol/L (3.5-5.1)
[2020-08-02 08:47] VITALS: BP 143/71
[2020-08-02 09:28] LABS: RED CELL DISTRIBUTION WIDTH 16.5 % (11.5-14.5)
[2020-08-02 12:29] VITALS: BP 139/99
[2020-08-02 16:33] VITALS: BP 148/73
[2020-08-02 20:31] VITALS: BP 140/69
[2020-08-03 05:37] VITALS: BP 141/70
[2020-08-03 06:59] LABS: BASOPHIL % 0.1 % (0-2); PLATELET COUNT 354 x10^3mcL (130-400)
[2020-08-03 07:13] LABS: RED CELL DISTRIBUTION WIDTH 16.8 % (11.5-14.5)
[2020-08-03 07:18] LABS: CARBON DIOXIDE 30.7 mmol/L (21-32); CREATININE SERUM 3.1 mg/dL (0.7-1.3); MAGNESIUM 2.5 mg/dL (1.8-2.4); POTASSIUM SERUM 3.3 mmol/L (3.5-5.1)
[2020-08-03 08:29] VITALS: BP 116/58
[2020-08-03 12:00] VITALS: BP 112/57
[2020-08-03 14:05] VITALS: BP 112/57
[2020-08-03 17:36] VITALS: BP 117/60
[2020-08-03 23:08] VITALS: BP 138/62
[2020-08-04 06:35] VITALS: BP 134/60
[2020-08-04 07:35] LABS: BASOPHIL % 0.1 % (0-2); PLATELET COUNT 370 x10^3mcL (130-400)
[2020-08-04 07:46] LABS: CALCIUM 7.7 mg/dL (8.5-10.1); CARBON DIOXIDE 30.9 mmol/L (21-32); CREATININE SERUM 3.3 mg/dL (0.7-1.3); MAGNESIUM 2.5 mg/dL (1.8-2.4); POTASSIUM SERUM 3.2 mmol/L (3.5-5.1)
[2020-08-04 08:27] VITALS: BP 144/68
[2020-08-04] MEDS ORDERED: FER300 PO (11:34)
[2020-08-04] MEDS ORDERED: PRO20I SC (11:34)
[2020-08-04] MEDS ORDERED: APAP/HYDROCODON1 T13 PO (11:35)
[2020-08-04] MEDS ORDERED: CARVEDILOL12.5 M1 PO (11:35)
[2020-08-04] MEDS ORDERED: APR50 PO (11:35)
[2020-08-04] MEDS ORDERED: L40 PO (11:36)
[2020-08-04 12:38] VITALS: BP 144/68
[2020-08-04 13:28] VITALS: BP 144/68
== END 2020-08-04 16:08 | DRG 137 ==
LOC: ED 00:25 → DU 02:41 → MU 08-03 11:38
PROVIDERS: Emergency Medicine; Family Medicine; Internal Medicine Gastroenterology; Internal Medicine Nephrology; ADMIT Internal Medicine; ATTEND Internal Medicine
PROC: 30233N1 Transfusion of Nonautologous Red Blood Cells into Peripheral Vein, Percutaneous Approach (ICD-10-PCS; 2020-07-24)
PROC: 0DB68ZX Excision of Stomach, Via Natural or Artificial Opening Endoscopic, Diagnostic (ICD-10-PCS; principal; 2020-08-01 09:00)
PROC: 0DJD8ZZ Inspection of Lower Intestinal Tract, Via Natural or Artificial Opening Endoscopic (ICD-10-PCS; 2020-08-01 09:00)
DX: U07.1 COVID-19 (principal); E11.22 Type 2 diabetes mellitus with diabetic chronic kidney disease; N18.4 Chronic kidney disease, stage 4 (severe); E87.5 Hyperkalemia; I12.9 Hypertensive chronic kidney disease with stage 1 through stage 4 chronic kidney disease, or unspecified chronic kidney disease; Z82.3 Family history of stroke; E11.65 Type 2 diabetes mellitus with hyperglycemia; E87.1 Hypo-osmolality and hyponatremia; D64.9 Anemia, unspecified; N50.89 Other specified disorders of the male genital organs
CPT/HCPCS: 82962; 83880; 84439; 97110-GP; 97116-GP; 97530-GP; C9113; G0378; J0456; J0885-EC; J1200; J1450; J1610; J1644; J1815; J1940; J2185; J2250; J2270; J2310; J2405; J2916; J3010; J3420; J3480; J3490; J7030; J7040; J7050; J8597; P9016; P9047; Q0092; Q0163; U0003-CS

== ENCOUNTER 2020-08-18 01:06 | Inpatient (IN) | payer OTHER ==
[~2020-08-18] VITALS: Ht 170.2 cm; Wt 95.7 kg
[~2020-08-18 01:06] MED LIST changes: +APAP/HYDROCODON1 T13 PO; +APR50 PO; +DECADRON4 MG PO; +DEXAMETHASONE2 MG PO; +FER300 PO; +HYDRALAZINE HCL25 MG PO; +L40 PO; +NORCO 10-325 T1 EACH PO; +PRO20I SC
[2020-08-18 01:52] VITALS: Ht 170.2 cm; Wt 95.7 kg
[2020-08-18 02:35] LABS: BASOPHIL % 1.6 % (0-2); BILIRUBIN TOTAL 0.4 mg/dL (0.20-1.00); CALCIUM 7.8 mg/dL (8.5-10.1); CARBON DIOXIDE 22.8 mmol/L (21-32); CREATININE SERUM 3.2 mg/dL (0.7-1.3); TOTAL PROTEIN, SERUM 6.3 g/dL (6.4-8.2)
[2020-08-18 02:37] LABS: PLATELET COUNT 464 x10^3mcL (130-400); RED CELL DISTRIBUTION WIDTH 15.4 % (11.5-14.5)
[2020-08-18 02:40] LABS: ALBUMIN 1.9 g/dL (3.4-5.0)
--- NOTE | 2020-08-18 04:11 | NUR ---
PT STATES PAIN MEDICATION DIDN'T REALLY HELP. "MORPHINE 4MG ISN'T GOING TO BE ENOUGH". VS REMAIN STABLE. PT REMAINS ON O2 SINCE SATS DROPPED TO 88% ON RA PRIOR TO MEDICATING FOR PAIN AND WITH THE PATIENT'S SLEEPING.
[2020-08-18 05:06] VITALS: BP 153/74
--- NOTE | 2020-08-18 06:00 | NUR ---
PT IS TRANSFERRED TO 253 B, AWAKE/ALERT, GCS 15. NO DISTRESS NOTED IN RA. ALL VS WDL AND IV PATENT, C/D/I. CONTINUITY OF CARE ENDORSED TO OC CHOPRA.
--- NOTE | 2020-08-18 06:00 | NUR ---
PT WAS TRANSFER VIA BED TO ROOM 253B,PT RECIEVED AAO REG RESP NO SOB R/A SAT 97%,ON INITIAL ASSESSMENT PT AAO REG RESP NO SOB,ABDO IS SOFT WITH ACTIVE BOWEL SOUNDS,EDEMA TO EMILY LLE AND THE SCROTUM,PULSES NOT ABLE TO PALPATE,WILL NEED DOPPLER,BED IN THE LOW POSITION AND LOCKED,CALL LIGHT EASY REACHED AND WILL CONTINUE TO MONITOR.
--- NOTE | 2020-08-18 06:26 | NUR ---
PT WITH C/O OF PAIN TO THE SCROTUM ARCHING I NATURE AT THE SCALE OF 6/20,PT WAS MEDICATED WITH NORCO 1 TAB PO ORDER AND WILL CONTINUE TO MONITOR.
--- NOTE | 2020-08-18 06:34 | NUR ---
PT RESTING AT THIS TIME,WILL CONTINUE TO MONITOR.
[2020-08-18 06:35] LABS: urine erythrocyte NEGATIVE (NEGATIVE)
[2020-08-18 06:54] LABS: microscopic required? YES
--- NOTE | 2020-08-18 07:20 | NUR ---
RECEIVED REPORT FROM RENU RN. PT IS AAOX4. PT MED SURG STATUS. PT DENIES CHEST PAIN. PT ON RA. NO SOB OR DISTRESS. PT REMAINS STABLE W/ NO C/O PAIN OR DISTRESS. IV TO LH, CDI AND PATENT. PT HEPLOCKED. ALL COMFORT AND SAFETY MEASURES IN PLACE. BED IN LOW POSITION, 2 SIDE RAILS UP. CALL LIGHT WITH IN REACH. ALL QUESTIONS AND CONCERNS ADDRESSED. ALL NEEDS MET AT THIS TIME. WILL CONTINUE TO MONITOR PT.
[2020-08-18 07:37] LABS: CALCIUM 7.6 mg/dL (8.5-10.1); CARBON DIOXIDE 23.5 mmol/L (21-32); CREATININE SERUM 3.3 mg/dL (0.7-1.3); MAGNESIUM 2.3 mg/dL (1.8-2.4); PHOSPHOROUS 5.4 mg/dL (2.5-4.9); POTASSIUM SERUM 4.6 mmol/L (3.5-5.1)
[2020-08-18 07:42] LABS: BASOPHIL % 0.4 % (0-2)
[2020-08-18 08:04] LABS: PLATELET COUNT 432 x10^3mcL (130-400); RED CELL DISTRIBUTION WIDTH 16.6 % (11.5-14.5)
[2020-08-18 08:24] VITALS: BP 137/72
--- NOTE | 2020-08-18 10:45 | NUR ---
DR LOBATO NOTFIED ABOUT BUN/CREAT 78.0/3.3, H/H 7.5/25, PHOS 5.4, ALBUMIN 1.9. ALL QUESTIONS AND CONCERNS ADDRESSED. AWAITING ORDERS.
[2020-08-18 10:49] LABS: rbc morphology (normal/abnorm) ABNORMAL (NORMAL)
--- NOTE | 2020-08-18 12:15 | NUR ---
DR LOBATO AND MEDICAL TEAM AT BEDSIDE NOTIFYING PT OF NEED FOR BLOOD TRANSFUSION. PT SIGNING CONSENT FOR BLOOD TRANSFUSION. ALL QUESTIONS AND CONCERNS ADDRESSED. WILL CONTINUE TO MONITOR PT.
[2020-08-18 12:57] VITALS: BP 131/71
--- NOTE | 2020-08-18 13:53 | NUR ---
DR LOBATO MADE AWARE OF PT ON BEING ON TELE. AWAITING ORDERS. WILL CONTINUE TO MONITOR PT.
[2020-08-18 16:41] VITALS: BP 129/66
--- NOTE | 2020-08-18 18:10 | NUR ---
POST VS @1530 TEMP 98.8; HR 76; BP 129/66; RR 18; O2 SAT 97%. BLOOD VERIFIED W/ JOLEEN RENAE. BLOOD TRANSFUSION INITIATED @1605. PT DENIES ADVERSE REACTIONS. NO CHILLS, FEVER, N/V, PAIN, ITCHING, ETC. @1620 15 MIN VS TAKEN TEMP 98.6; HR 78; BP 138/70; RR 18; O2 SAT 96%. PT DENIES ADVERSE REACTIONS THROUGHOUT THIS TIME. BLOOD TRANSFUSION COMPLETE @1810. VOLUME GIVEN; 300. POST VS TEMP 98.7; HR 84; BP 146/70; RR 18; O2 SAT 96%. PT DENIES ANY ADVERSE REACTIONS. PT REMAINED STABLE THROUGHOUT TRANSFUSION W/ NO ACUTE CHANGES TO STATUS. ALL QUESTIONS AND CONCERNS ADDRESSED. WILL CONTINUE TO MONITOR PT.
--- NOTE | 2020-08-18 19:25 | NUR ---
REPORT GIVEN TO NAV RENAE. PT REMAINED STABLE THROUGHOUT MY SHIFT. ALL QUESTIONS AND CONCERNS ADDRESSED. ALL NEEDS MET AT THIS TIME. ALL CARES ENDORSED.
--- NOTE | 2020-08-18 19:36 | NUR ---
PT RECIEVED AAO REG RESP NO SOB R/A SAT 98%,HOB,ABDO IS SOFT WITH ACTIVE BOWEL SOUNDS,EDEMA TO THE SCORTUM AND THE BLE EXTRE,PULSES ARE FAINT TO BLE,PT VIDA MOVE EXTRE,HL TO THE RT HAND WITH THE SITE PATENT AND INTACT,PT BEING SEN BY DR HARRISON,PT ON TELE MONITOR AND INNNSR NO ECTOPY OR CHEST PAIN AT THIS TIME,KEPT CLEANAND DRY TO TOUCH AND WILL CONTINUE TO MONITOR.
[2020-08-18 22:28] VITALS: BP 144/68
--- NOTE | 2020-08-18 23:27 | NUR ---
PT SLEEPING SOUNDLY AND WILL CONTINUE TO MONITOR.
--- NOTE | 2020-08-19 02:08 | NUR ---
PT WITH C/O OF TESTICULAR OSCAR ARCHING IN NAUTRE PATIENT WAS MEDICATED WITH 1 TAB PO NORCO,WILL CONTINUE TO MONITOR.
[2020-08-19 06:10] VITALS: BP 150/69
--- NOTE | 2020-08-19 06:31 | NUR ---
PT HAD A RESTING NIGHT NO CHANGE AT THIS TIME,WILL CONTINUE TO MONITOR.
[2020-08-19 07:19] LABS: BASOPHIL % 0.2 % (0-2)
[2020-08-19 07:40] LABS: PLATELET COUNT 419 x10^3mcL (130-400)
--- NOTE | 2020-08-19 07:55 | NUR ---
RECEIVED REPORT FROM NIGHTSHIFT RN. PATIENT A&OX4, ROOM AIR, RESTING IN BED. INTRODUCED SELF AND ROLE. CALL LIGHT AND BEDSIDE TABLE WITHIN REACH. WILL CONTINUE TO MONITOR.
[2020-08-19 07:57] LABS: CALCIUM 7.8 mg/dL (8.5-10.1); CARBON DIOXIDE 25.7 mmol/L (21-32); CREATININE SERUM 3.1 mg/dL (0.7-1.3); MAGNESIUM 2.3 mg/dL (1.8-2.4); POTASSIUM SERUM 4.4 mmol/L (3.5-5.1)
[2020-08-19 08:25] VITALS: BP 136/72
[2020-08-19 12:18] VITALS: BP 140/76
--- NOTE | 2020-08-19 12:20 | NUR ---
PATIENT A&OX4, ROOM AIR, VITALS STABLE, VOIDING IN URINAL. PATIENT COMPLETED IV ALBUMIN DOSE 2/2. PATIENT GOT OOB WITH PT AND AMBULATED IN THE HALLWAY. BLE REMAIN ERYTHEMIC AND EDEMATOUS. TOLERATING DIET. WILL CONTINUE TO MONITOR.
[2020-08-19 16:19] VITALS: BP 145/73
--- NOTE | 2020-08-19 17:11 | NUR ---
PATIENT ADMITTED FOR BLE EDEMA AND SCROTAL EDEMA. PATIENT A&OX4, ROOM AIR, VITALS STABLE, VOIDING IN URINAL, OOB TO BATHROOM WITH WALKER, TOLERATING DIET, ACCUCHECKS AC/HS WITH COVERAGE. PATIENT C/O SCROTAL PAIN AND BLE PAIN, NORCO GIVEN PRN WITH ADEQUATE RELIEF. PATIENT C/O ANXIETY AT NIGHT, LEAD ASSEMBLER KODI CALLED AND NOTIFIED, NEW ORDER FOR XANAX IS AVAILABLE FOR ANXIETY. LEFT HAND PIV REMAINS PATENT AND SALINE LOCKED. DOSE 2/2 OF ALBUMIN INFUSED PER ORDER. PATIENT GOT OOB WITH PT. NO QUESTIONS OR CONCERNS AT THIS TIME. ALL NEEDS ADDRESSED. CALL LIGHT AND BEDSIDE TABLE WITHIN REACH. WILL CONTINUE TO MONITOR.
[2020-08-19 19:25] VITALS: BP 152/72
--- NOTE | 2020-08-19 20:40 | NUR ---
PATIENT RECEIVED AWAKE, ALERT, ORIENTED X4 IN BED. RESPIRATION EVEN AND UNLABORED, ON ROOM AIR. IV SITE TO L HAND PATENT AND INTACT. DENIES GI DISCOMFORT. LBM 10/7. +2 EDEMA TO BLE, SCROTAL EDEMA. GENERALIZED WEAKNESS, OOB W/ WALKER, UP W/ PT. BLE ERYTHEMA. VOIDING FREELY. DENIES PAIN AT THIS TIME. ON TELE #34. WILL CONTINUE TO MONITOR.
--- NOTE | 2020-08-19 22:51 | NUR ---
PATIENT COMPLAINED OF PAIN ON HIS PRIVATE AREA. NORCO 7.5/325 MG PO GIVEN ORDERED. WILL REASSESS PATIENT.
--- NOTE | 2020-08-20 01:49 | NUR ---
PATIENT COMPLAINED OF ANXIETY XANAX 0.25 MG PO GIVEN ORDERED. WILL REASSESS PATIENT.
[2020-08-20 04:50] VITALS: BP 171/82
--- NOTE | 2020-08-20 06:39 | NUR ---
PATIENT RESTING IN BED. RESPIRATION EVEN AND UNLABORED, ON O2 1L PER NASAL CANNULA. COMPLAINED OF SCROTAL/PENILE PAIN. MEDICATED WITH NORCO 7.5/325 MG PO AT 0521. SALINE LOCK TO L HAND PATENT AND INTACT. ASSISTED WITH NEEDS. SAFETY OBSERVED. PLACED BED IN THE LOWEST POSITION. PLACED CALL LIGHT WITHIN REACH AT ALL TIMES.
[2020-08-20 07:35] LABS: CALCIUM 8.1 mg/dL (8.5-10.1); CARBON DIOXIDE 26.5 mmol/L (21-32); CREATININE SERUM 2.8 mg/dL (0.7-1.3); POTASSIUM SERUM 4.5 mmol/L (3.5-5.1)
[2020-08-20 07:40] LABS: BASOPHIL % 0.5 % (0-2); PLATELET COUNT 389 x10^3mcL (130-400)
[2020-08-20 07:41] LABS: RED CELL DISTRIBUTION WIDTH 16.9 % (11.5-14.5)
[2020-08-20 07:53] VITALS: BP 146/69
[2020-08-20 08:10] LABS: MAGNESIUM 2.2 mg/dL (1.8-2.4); PHOSPHOROUS 5.1 mg/dL (2.5-4.9)
[2020-08-20 17:00] VITALS: BP 140/65
--- NOTE | 2020-08-20 19:05 | NUR ---
SYSTEM WAS DOWN THE WHOLE SHIFT AND CAME BACK AFTER 1700. PATIENT WAS NPO FOR PERICARDIOCENTESIS AND CAME BACK AT AROUND 1430. I &OS UPDATED. PATIENT WANTED TO EAT DESPITE EXPLAINED TO HIM THAT HE STILL HAS RENAL BIOPSY. XU CASTANEDA CALLED AND ORDER DIET FOR HIM.
[2020-08-20 20:14] VITALS: BP 152/75
[2020-08-21] VITALS (7 sets, daily range): BP systolic 134–156; BP diastolic 64–75
--- NOTE | 2020-08-21 06:20 | NUR ---
AOX4 SLEPT WELL THROGHOUT THE NIGHT PRN PAIN MED GIVEN X3 ANXIETY MED GIVEN X1 NO SIGNS OF DISTRESS VSS QILL ENDORSE TO ONCOMING NURSE
[2020-08-21 06:30] LABS: BASOPHIL % 0.4 % (0-2); PLATELET COUNT 391 x10^3mcL (130-400)
[2020-08-21 06:42] LABS: RED CELL DISTRIBUTION WIDTH 16.5 % (11.5-14.5)
[2020-08-21 06:47] LABS: CARBON DIOXIDE 27.4 mmol/L (21-32); CREATININE SERUM 2.7 mg/dL (0.7-1.3); MAGNESIUM 2.2 mg/dL (1.8-2.4); PHOSPHOROUS 4.6 mg/dL (2.5-4.9); POTASSIUM SERUM 4.3 mmol/L (3.5-5.1)
--- NOTE | 2020-08-21 19:02 | NUR ---
PATIENT CAME BACK FROM KIDNEY BIOPSY AT AROUND 1240, VITAL SIGNS HAVE BEEN STABLE. NO BLEEDING AT THE INCISION SITE. BANDAGE WHERE THE INCISION SITE IS CLEAN. NO S/S OF BLEEDING. NO BLEEDING WHEN URINATE. PATIENT HAS REMAINED BEDREST.
--- NOTE | 2020-08-21 20:00 | NUR ---
RECEIVED PT ALERT AND ORIENTED X4, BREATHING REGULAR AND UNLABORED ON ROOM AIR. TELE #34 NSR 82 BPM. PT DENIES ANY CHEST PAIN, OR SOB, REPORTS PERSISTENT PAIN TO SCROTUM AND BLE, WILL MEDICATED WITH ORDERED PAIN MEDICATION. NOTED SCROTAL EDEMA WITH BLE 2+ PITTING EDEMA. NO NOTED BRUISING OR BLEEDING TO KIDNEY BIOPSY PUNCTURE SITE TO R FLANK, DRESSING TO LEFT CHEST PERICARDIOCENTESIS SITE CDI, NORMAL SURROUNDING SKIN. PT COMPLAINS OF PERSISTENT ANXIETY WITH LITTLE IMPROVEMENT WITH ORDERED XANAX, DR. LAWTON NOTIFIED AND AWAITING NEW ORDERS. IVS PATENT, NO SIGNS OF INFILTRATION, DRESSINGS CDI. SAFETY PRECAUTIONS IN PLACE, WILL CONTINUE TO MONITOR.
[2020-08-21 20:01] LABS: SOURCE FLUID THORACENTESIS
[2020-08-21 20:02] LABS: APPEARANCE FLUID BLOODY; COLOR FLUID RED
[2020-08-21 22:00] LABS: RBC FLUID 332583 /cumm
[2020-08-21 22:01] LABS: LYMPHOCYTE FLUID 30 %; MONOCYTE FLUID 22 %; WBC FLUID 767 /cumm
--- NOTE | 2020-08-22 00:30 | NUR ---
PT RESTING, EASILY AROUSABLE, BREATHING REGULAR AND UNLABORED ON ROOM AIR. NSR HR 58 BPM ON TELE MONITORING. PT MEDICATED FOR PAIN NEEDED PER EMAR. SAFETY PRECAUTIONS IN PLACE. WILL CONTINUE TO MONITOR.
[2020-08-22 05:30] VITALS: BP 142/64
--- NOTE | 2020-08-22 07:16 | NUR ---
PT UP TO CHAIR THIS MORNING, REPORTS CONTINUED DISCOMFORT DUE TO SCROTAL EDEMA AND BLE EDEMA. PT DENIES SOB AT REST, DENIES CP OR OTHER ACUTE DISTRESS. PIVS PATENTN, NO SIGNS OF INFILTRATION. SINUS RHYTHM ON TELE MONITORING, BREATHING REGULAR AND UNLABORED ON ROOM AIR. WILL ENDORSE CARE TO ONCOMING RN.
[2020-08-22 08:00] VITALS: BP 134/73
--- NOTE | 2020-08-22 08:00 | NUR ---
AAOX4; OUT OF BED AND SITTING IN THE BEDSIDE CHAIR. RESP EASY AND REG AT RM AIR. REPORTS PAIN ON "PRIVATE AND LOWER EXTREMITIES"; 8/10 ON THE PAIN SCALE. PT REPORTS THE SWELLING ON HIS BLE AND PENIS HAS SUBSIDED SIGNIFICANTLY BY MORE THAN 5O%. SL ON RH AND LH INTACT, PATENT. NSG ASSESSMENT DONE; FALL AND SAFETY PRECAUTION REINFORCED. WILL CONTINUE TO MONITOR STATUS.
[2020-08-22 08:28] LABS: CARBON DIOXIDE 27.1 mmol/L (21-32); CREATININE SERUM 2.5 mg/dL (0.7-1.3)
[2020-08-22 09:31] LABS: BASOPHIL % 0.1 % (0-2); PLATELET COUNT 399 x10^3mcL (130-400); RED CELL DISTRIBUTION WIDTH 16.7 % (11.5-14.5)
--- NOTE | 2020-08-22 10:41 | NUR ---
SL ON THE RH CAME OUT WITH INTACT CATH. SL ON THE LH IS INFILTRATED; IVF RESITED TO RH WITH ANGIO 22 X1 ATTEMPT.
[2020-08-22 12:00] VITALS: BP 153/77
[2020-08-22 16:09] VITALS: BP 146/73
--- NOTE | 2020-08-22 18:14 | NUR ---
NO NEW ACUTE CHANGES IN STATUS. UP IN CHAIR MOST OF THE SHIFT. ON/OFF PAIN DUE TO EDEMA ON BLE AND PENIS. HE REQUESTS FOR NORCO PRN. NO EPISODE OF SOB THIS SHIFT.
--- NOTE | 2020-08-22 19:50 | NUR ---
REPORT FROM AMY RENAE. PATIENT RESTING WITH EYES OPEN. NO S/S OF DISTRESS. PATIENT C/O DISCOMFORT. PAIN MEDICATION GIVEN. AXOX4, 1LNC BLE EDEMA 2+ GEN WEAKNESS. RH 22G SL INTACT NO INFILTRATION. TELE 34 SR AT THIS TIME. ACTIVE BOWELS SOUNDS, SOFT ROUND NON TENDER ABD. SKIN INTACT. MODERATE RADIAL AND PEDAL PULSES. VOIDS FREELY BEDSIDE URINAL. BED IN LOW POSITION, SIDE RAILS UPX2, CALL LIGHT WITHIN REACH. WILL CONTINUE TO MONITOR PATIENT AND OFFER SUPPORT.
[2020-08-22 20:20] VITALS: BP 148/71
--- NOTE | 2020-08-22 23:48 | NUR ---
PT C/O BEING ANXIOUS. PATIENT STATED HE WAS UNABLE TO SLEEP . PRN ATIVAN GIVEN. WILL CONTINUE TO MONITOR PATIENT AND OFFER SUPPORT.
--- NOTE | 2020-08-23 01:45 | NUR ---
PATIENT CHANGED AND REPOSITIONED. BEDDING WAS CHANGED. PATIENT HAS BEEN HAVING TROUBLE SLEEPING. WILL CONTINUE TO MONITOR PATIENT AND OFFER SUPPORT.
[2020-08-23 04:46] VITALS: BP 155/67
[2020-08-23 07:23] LABS: CALCIUM 7.8 mg/dL (8.5-10.1); CARBON DIOXIDE 29.7 mmol/L (21-32); CREATININE SERUM 2.4 mg/dL (0.7-1.3); MAGNESIUM 1.9 mg/dL (1.8-2.4); PHOSPHOROUS 3.9 mg/dL (2.5-4.9); POTASSIUM SERUM 3.8 mmol/L (3.5-5.1)
[2020-08-23 07:28] LABS: BASOPHIL % 0.3 % (0-2); PLATELET COUNT 338 x10^3mcL (130-400)
--- NOTE | 2020-08-23 07:45 | NUR ---
RECEIVED PT RESTING IN BED, APPEARS COMFORTABLY. RESPIRATIONS EVEN AND UNLABORED ON RA. DENIES PAIN AND CHEST DISCOMFORT. AAO TIMES 4. TELE #34, NSR. SAFETY MEASURES IN PLACE, CALL LIGHT IN REACH.
[2020-08-23 07:59] LABS: RED CELL DISTRIBUTION WIDTH 16.5 % (11.5-14.5)
[2020-08-23 08:01] VITALS: BP 141/67
--- NOTE | 2020-08-23 11:27 | NUR ---
Initial Nutrition Assessment: Dx: edema PMHx: CKD, nephrotic syndrome, IDDM, HTN PSHx: foot fx with ORIF, LLE, left renal sx 2/2 cancer Labs: (08/23) Na 135 L, K 3.8, Glu 133 H, BUN 53 H, Cr 2.4, A1c 7.4, H/H 7.4/23 Meds: albuminar-25, Ativan, Colace, D50%, ferrlecit, Humulin R, [place], Procrit, Tylenol, Zofran Diet: CCHO PO intake since admission: (08/18) B: 60%, L: 70%, D: 100%, (08/19) B: 65%, L: 75%, D: 100%, (08/20) D: 100%, (08/21) L: 100%, *Note: Pt had snacks before lunch, (08/22) B: 95%, D: 100%. Overall average: 86.5%. This provides ~1620 kcal and 99 gm protein. This meets 87% estimated kcal needs and > 100% estimated protein needs; adequate. Ht: 170.18 cm / 67 inches / 5'7" Wt: 95.708 kg / 210 pounds BMI: 33.1 kg/m2, obesity class 1 IBW: 148 pounds / 67 kg %IBW: 141% UBW: 164 pounds / 74 kg Age: 49 Food Allergies: NFKA Skin: pale Vick: 19 Edema: BLE GI: soft, round, nontender Last BM: 08/22/20 RD Note (08/23/20): Pt is a 49 y/o M with PMHx of nephrotic syndrome, IDDM, HTN. Pt was BIBA from home for scrotal swelling and bilateral LE swelling x 3 days. Pt denies any fever, chest pain, SOB, cough, diarrhea, bloody stool or melena, headache, abd pain, dysuria. Pt denies any loss of taste or smell or contact with coronavirus positive persons. Pt was in in June for DKA, May for COVID PNA, and Jul for same complaints of generalized edema. Dr. Peoples was consulted for nephrotic syndrome & suggested Lasix 40 mg BID and f/u in clinic. Pt has a very good appetite, no GI distress. Problem with: N/V/D/C: None Problems with: Chewing: None Swallowing: None Current appetite: Good Recent wt change: None Vitamin/Supplement use: Special diet at home: Regular Physical activity: None Nutrition education given (specify specific nutrition education and handout given): RDN provided Pt with handouts from [email or web address]: "Understanding Diabetes" and "Eating Right with Diabetes." Food-drug interactions? N/A Education given? N/A Estimated Nutritional Needs Based on ideal body weight of 74 kg due to obesity, edema present to BLE. Energy: 0831-3127 kcal/d (25-30 kcal/kg for maintenance) Protein: 44-60 gm/d (0.6-0.8 gm/kg for CKD) Fluid: 2000-3870 mL/d (1 mL/kcal) or per MD. Nutrition Diagnosis 1. Impaired nutrient utilization related to endocrine dysfunction as evidenced by A1c 7.4 on 08/23/20 & hx of IDDM. Intervention/RDN Recommendation(s): 1. Continue on CCHO diet as tolerated. Monitor/Evaluate Goal: Intake via PO intakes to meet at least 75% of estimated needs with acceptable tolerance within 5-7 days. Monitor: PO intakes and/or nutrition support tolerance, Labs, GI function, Skin integrity, Weights. F/U in 5-7 days as low risk (08/28-)
--- NOTE | 2020-08-23 11:27 | NUR ---
Intervention/RDN Recommendation(s): 1. Continue on CCHO diet as tolerated.
[2020-08-23 12:22] VITALS: BP 155/68
[2020-08-23 16:50] VITALS: BP 169/77
--- NOTE | 2020-08-23 18:48 | NUR ---
PATIENT RESTING IN BED, RESPIRATIONS EVEN AND UNLABORED ON 2L02 VIA NC. NO ACUTE CHANGES THROUGHOUT SHIFT. WILL ENDORSE TO ONCOMING NURSE.
--- NOTE | 2020-08-23 19:17 | NUR ---
NURSING CO-SIGN THE DOCUMENTATION ENTERED BY THE IP HAS BEEN REVIEWED. REVIEWED/CO-SIGNED BY: Nisha Sanchez RN DOCUMENTATION DONE BY: KODI KILGORE RN
--- NOTE | 2020-08-23 19:40 | NUR ---
REC'D PT FROM DAY NURSE. PT RESTING IN BED. AAOX4, SPEECH CLEAR, FOLLOWS COMMANDS. TELE 34. DENIES CP, DIZZINESS, OR PALPITATIONS. DENIES RESP DISTRESS OR SOB. BREATHING EVEN/UNLABORED ON 1L NC, SPO2 98%. PT TAKING O2 OFF INTERMITTENTLY. ABD SOFT/ROUND. DENIES ABD PAIN, TENDERNESS, OR N/V. BLE PITTING EDEMA, ELEVATED WITH PILLOWS. ALSO SCROTAL AND PENILE EDEMA. REPORTS PAIN BUT NO PAIN MED DUE AT THIS TIME. PT AWARE. IV TO RH PATENT AND INFUSING, SITE WNL. CALL LIGHT WITHIN REACH, BED AT LOWEST POSITION. WILL CONTINUE TO MONITOR.
[2020-08-23 21:07] VITALS: BP 154/73
--- NOTE | 2020-08-23 21:37 | NUR ---
PT C/O ANXIETY. PRN ATIVAN GIVEN PER ORDER.
--- NOTE | 2020-08-23 21:40 | NUR ---
BS 206. PT REFUSED INSULIN. PT STATED "WHEN IT'S LIKE THIS, I DON'T TAKE INSULIN. MY BLOOD SUGAR DROPS." EDUACATED PT REGARDING TAKING INSULIN BASED ON SLIDING SCALE. OFFERED TO SPOT CHECK INSULIN IN THE MIDDLE OF THE NIGHT. PT STILL REFUSED. DR. MICHAEL MADE AWARE.
--- NOTE | 2020-08-24 00:16 | NUR ---
PT REPORTS WAKING UP FROM SEVERE SCROTAL PAIN. REQUESTING TO INCREASE FREQUENCY OF PAIN MEDS. WAITED 10 MIN FOR PRN NORCO TO BE DUE TO GIVE MED. PT SNORING IN BED BUT WOKEN UP TO GIVE NORCO. WILL CONTINUE TO MONITOR.
--- NOTE | 2020-08-24 01:42 | NUR ---
PT RESTING IN BED WITH EYES CLOSED. NO SIGNS OF DISTRESS OR PAIN NOTED. BREATHING EVEN/UNLABORED ON RA. CALL LIGHT WITHIN REACH, BED AT LOWEST POSITION. WILL CONTINUE TO MONITOR.
--- NOTE | 2020-08-24 04:06 | NUR ---
PT AWAKE C/O SEVERE SCROTAL PAIN. STATES HE CANNOT GO BACK TO SLEEP. DR. MICHAEL NOTIFIED. RESIDENT CHANGED NORCO TO Q4 FROM Q6. WILL GIVE ONCE VERIFIED BY PHARMACY. PT ALSO REQUESTING ANXIETY MED. OFFERED XANAX BUT REQUESTED ATIVAN IV. INFORMED UNABLE TO GIVE BENZO AND OPIATE CONCURRENTLY D/T RISK OF RESPIRATORY DEPRESSION. PT VERBALIZED UNDERSTANDING AND OKAY TO RECEIVE NORCO FIRST.
[2020-08-24 05:37] VITALS: BP 157/72
--- NOTE | 2020-08-24 06:16 | NUR ---
PT SITTING ON THE CHAIR. REPORTS SOME SCROTAL PAIN BUT TOLERABLE. DENIES ANXIETY AT THIS TIME. BREATHING EVEN/UNLABORED ON RA. NO SIGNIFICANT CHANGES DURING SHIFT. CALL LIGHT WITHIN REACH, BED AT LOWEST POSITION. WILL ENDORSE TO DAY NURSE.
--- NOTE | 2020-08-24 07:30 | NUR ---
RECEIVED PT FROM PM NURSE. PT IS AWAKE AND SITTING UP IN A CHAIR. NO FACIAL DISTRESS OR SOB NOTED. PT IS A/OX4. ABLE TO MAKE NEEDS KNOWN. LUNG SOUNDS DIMINISHED. BREATHING E/U ON 1L NC. TELE #34. NSR. DENIES CP/PRESSURE. PALPABLE PULSES. EDEMA NOTED TO BLE AND SCROTUM. ACTIVE BSX4. ABD SOFT AND ROUND. DENIES N/V/D. VOIDS FREELY. WALKER ASSIST. DRY SKIN NOTED TO BLE. C/O SCROTAL PAIN. WILL MEDICATE PER EMAR. IV 22G TO LH. INTACT. PATENT. SITE WNL. CALL BUTTON WITHIN REACH. WILL CONTINUE TO MONITOR.
[2020-08-24 07:52] LABS: BASOPHIL % 0.3 % (0-2); PLATELET COUNT 379 x10^3mcL (130-400)
[2020-08-24 07:58] LABS: RED CELL DISTRIBUTION WIDTH 17.1 % (11.5-14.5)
[2020-08-24 08:20] VITALS: BP 154/75
[2020-08-24 08:26] LABS: CALCIUM 7.8 mg/dL (8.5-10.1); CARBON DIOXIDE 30.6 mmol/L (21-32); CREATININE SERUM 2.5 mg/dL (0.7-1.3)
[2020-08-24 12:29] VITALS: BP 116/71
--- NOTE | 2020-08-24 15:12 | NUR ---
MADE PROJECT MANAGEMENT ANALYST [place] AWARE THAT PATIENT HAS ASKED FOR AN INCREASE IN DOSAGE OF THE ATIVAN THIS MORNING AND THAT THE DOSAGE HAS'NT BEEN ADJUSTED STILL. SPOKE TO XU EUCEDA. SHE AGREED TO THE INCREASE IN DOSAGE. NOTED AND CARRIED OUT. DCED THE PREVIOUS ORDER OF ATIVAN.
[2020-08-24 16:22] VITALS: BP 154/74
--- NOTE | 2020-08-24 19:08 | NUR ---
NO ACUTE DISTRESS DURING SHIFT. WILL ENDORSE CARE TO PM SHIFT FOR CONTINUITY OF CARE.
--- NOTE | 2020-08-24 19:35 | NUR ---
RECIEVED PT FROM AM RN. PT IN CHAIR BY THE BED SITTING. PT ASKING WHEN NORCO CAN BE GIVEN. WILL CHECK EMAR AND WILL PROVIDE ACCORDINGLY. PT HAS NO OTHER CONCERNS WILL FOLLOW UP WITH PM MEDICATIONS. CALL LIGHT IN REACH.
[2020-08-24 21:30] VITALS: BP 176/86
--- NOTE | 2020-08-24 22:27 | NUR ---
PT TOLERATED MEDICATIONS WELL. PT REQUESTING ATIVAN TO SLEEP COMFROTABLY. PT MEDICATED PER EMAR. PT HAS NO OTHER CONCERNS AT THIS TIME. CALL LIGHT IN REACH.
--- NOTE | 2020-08-25 03:07 | NUR ---
PTS IV WAS LEAKING, REMOVED IV, CATHETER INTACT. NEW IV INSERTED INTO LEFT WRIST. INTACT, PATENT, FLUSHES WELL.
[2020-08-25 06:06] VITALS: BP 157/63
--- NOTE | 2020-08-25 06:44 | NUR ---
PT RESTING IN BED, BLOOD GLUCOSE WAS CHECKED AND COVERED PER SC. PT REMAINED STABLE THROUGHOUT THE NIGHT, NO SIGNIFICANT CHANGES. PT REPORTED PAIN AND WAS MEDICATED ACCORDINGLY PER EMAR. PT HAS NO CONCERNS AT THIS TIME. ALL NEEDS WERE MET DURING THIS SHIFT. CALL LIGHT IN REACH. WILL ENDORSE ALL CARE TO AM RN.
--- NOTE | 2020-08-25 07:57 | NUR ---
RECIEVED PT FROM CAFE TEAM MEMBER NURSE. PT IS A/O X4, CALM AND COOPERATIVE. TELE #24, NSR. PT ON RA, BREATHING EVEN/UNLABORED, IN NO ACUTE RESP DISTRESS. 2+ PITTING EDEMA NOTED TO BLE, DRY FLAKING SKIN TO BLE. SEVERE NON PITTING EDEMA NOTED TO SCROTUM. WALKER AT BEDSIDE, PT VOIDS USING BEDSIDE COMMODE. PT REPORTS PAIN OF 5/10 AT THIS TIME, ALREADY MEDICATED PER EMAR. IV TO LW PATENT, SALINE LOCKED, CDI. WILL CONT TO MONITOR.
[2020-08-25 07:59] VITALS: BP 165/79
[2020-08-25 08:11] LABS: CALCIUM 7.8 mg/dL (8.5-10.1); CARBON DIOXIDE 29.2 mmol/L (21-32); CREATININE SERUM 2.5 mg/dL (0.7-1.3); MAGNESIUM 1.8 mg/dL (1.8-2.4); POTASSIUM SERUM 4.3 mmol/L (3.5-5.1)
[2020-08-25 08:15] LABS: BASOPHIL % 0.4 % (0-2); PLATELET COUNT 368 x10^3mcL (130-400); RED CELL DISTRIBUTION WIDTH 17.2 % (11.5-14.5)
--- NOTE | 2020-08-25 11:56 | NUR ---
CHECKED BLOOD SUGAR, WAS 252. 9 UNITS GIVEN PER SLIDING SCALE. PT SITTING UP IN CHAIR, WAITING FOR LUNCH. PT ON 1L NC, BREATHING EVEN/UNLABORED, IN NO ACUTE DISTRESS. PT ASKING WHEN NEXT DOSE OF NORCO IS DUE. ALL NEEDS MET. WILL CONT TO MONITOR.
[2020-08-25 11:59] VITALS: BP 172/83
[2020-08-25 16:18] VITALS: BP 164/75
--- NOTE | 2020-08-25 16:31 | NUR ---
CHECKED BLOOD SUGAR, WAS 219, ADMINISTERED 6 UNITS REG INSULIN PER SLIDING SCALE. PT NOW MED SURG, TELE MONITOR TAKEN OFF AND RETURNED BACK TO ETL DATABASE DEVELOPER. 300 ML OF CLEAR, YELLOW URINE NOTED IN URINAL. WILL CONT TO MONITOR.
--- NOTE | 2020-08-25 17:38 | NUR ---
PT'S BLOOD PRESSURE HIGH. PT STATES THAT HE TAKES HOME MEDICATION FOR BP, BUT HAS NOT RECIEVED IT THIS HOSPITAL STAY. NOTICED MED RECONCILATION HAS NOT BEEN COMPLETED THIS HOSPITAL STAY. PAGED DR. ORTIZ, AWAITING CALL BACK.
--- NOTE | 2020-08-25 17:50 | NUR ---
SPOKE WITH DR. ORTIZ ON TELEPHONE, HE STATES THAT HE IS UNABLE TO COMPLETE THE MED RECONCILIATION DUE TO [employer] ISSUES, BUT HE WILL ORDER THE BLOOD PRESSURE MEDICATIONS THAT ARE NEEDED. WILL CONT TO MONITOR.
--- NOTE | 2020-08-25 18:35 | NUR ---
PT SITTING IN CHAIR AT BEDSIDE. MED SURG. PT BREATHING EVEN/UNLABORED, IN NO ACUTE RESP DISTRESS. IV TO L WRIST PATENT, CDI. PT REPORTS 5/10 PAIN AT THIS TIME, ALREADY MEDICATED PER EMAR. BEDSIDE COMMODE AND WALKER NEARBY. ALL NEEDS MET. WILL ENDORSE TO TECHNOLOGY PROGRAM MANAGER NURSE.
[2020-08-25 19:15] VITALS: BP 161/82
--- NOTE | 2020-08-25 19:45 | NUR ---
RECEIVED PT FROM AM NURSE, PT AAOX4, ABLE TO FOLLOW COMMANDS AND MAKE NEEDS KNOWN. PT DENIES ANY CP/PRESSURE AT THIS TIME. PT HAS EDEMA TO BLE AND SCROTUM. LUNG SOUNDS DIMINISHED, BREATHING EVEN AND UNLABORED ON RA/2L NC. PT GET SOB ON EXERTION. PT DENIES ANY PAIN. BED AT LOWEST SETTING. SIDE RAILS X2 UP. CALL LIGHT WITHIN REACH. WILL CONT TO MONITOR.
--- NOTE | 2020-08-25 22:08 | NUR ---
PT RESUFING MEDICATIONS AND ALL NURSING CARE. REFUSED TO BE PLACED ON TELE MONITOR, STATES SHE DOES NOT WANT IT ON. EDUCATED PT ON THE NEED FOR MEDICATIONS AND MONITORING OF HEART. PT NODES HEAD AND REPEDITLY SAYS NO, SHE DOES NOT WANT ANYTHING AT THIS TIME. SAFETY PRECAUTIONS IN PLACE. BED ALARM ON. WILL PAGE DR MÉNDEZ TO NOTIFY ABOUT PT REFUSAL.
[2020-08-26] VITALS (7 sets, daily range): BP systolic 145–175; BP diastolic 69–77
--- NOTE | 2020-08-26 06:09 | NUR ---
PT SLEPT AT INTERVALS THROUGHOUT THE NIGHT, BREATHING EVEN AND UNLABORED ON 2L NC. PT C/O ANXIETY, PRN ATIVAN WAS GIVEN WITH GOOD RELIEF. PT BP 175/77 THIS AM, DR GUSTAFSON MADE AWARE, AND PER DR BRAN TO GIVE HYDRALAZINE EARLY. HYDRALAZINE GIVEN AT THIS TIME. WILL REASSESS BP. NO OTHER COMPLAINTS DURING SHIFT. ALL NEEDS ASSESSED AND ATTENDED TO. SAFETY PRECAUTIONS IN PLACE. CALL LIGHT WITHIN REACH. WILL CONT TO MONITOR.
--- NOTE | 2020-08-26 06:44 | NUR ---
PT BP 162/73, WILL ENDORSE CARE TO AM NURSE.
--- NOTE | 2020-08-26 07:20 | NUR ---
RECEIVED PT IN BED AWAKE, ALERT, ABLE TO MAKE NEEDS KNOWN. ON RA, NO ACUTE RESPIRATORY DISTRESS. IV SITE TO LAC SALINE LOCK. DENIES PAIN OR DISCOMFORT AT THIS TIME. BED IN LOWEST POSITION. CALL LIGHT WITHIN REACH. WILL CONTINUE TO MONITOR.
[2020-08-26 07:52] LABS: CALCIUM 7.6 mg/dL (8.5-10.1); CARBON DIOXIDE 26.1 mmol/L (21-32); CREATININE SERUM 2.5 mg/dL (0.7-1.3); MAGNESIUM 1.9 mg/dL (1.8-2.4); PHOSPHOROUS 4.1 mg/dL (2.5-4.9); POTASSIUM SERUM 4.3 mmol/L (3.5-5.1)
[2020-08-26] MEDS ORDERED: FER300 PO (12:37)
[2020-08-26] MEDS ORDERED: HYDRALAZINE HCL50 MG PO (12:38)
[2020-08-26] MEDS ORDERED: Z5 PO (12:39)
[2020-08-26] MEDS ORDERED: BUM1 PO (12:40)
[2020-08-26] MEDS ORDERED: XAN25 PO (12:41)
--- NOTE | 2020-08-26 17:20 | NUR ---
PATIENT SIGNED DISCHARGE FORMS/INVENTORY. TEACHING GIVEN ON PRESCRIBED TAKE HOME MEDICATION AND TO FOLLOW UP ON SCHEDULED APPT. TO FOLLOW UP WITH PCP PER INSTRUCTIONS. PATIENT VERBALIZED UNDERSTANDING. ALL QUESTIONS AND CONCERNS ADDRESSED, NO FURTHER QUESTION AT THIS TIME. D/C IV FROM LAC, APPLIED GAUZE AND TAPE, NO NOTED BLEEDING. PT ON RA, DENIES SOB. DENIES PAIN OR DISCOMFORT. PER INTAKE MAN KIERA PATIENT WILL BE PROVIDED VOUCHER FOR TRANSPORTATION.
--- NOTE | 2020-08-26 17:53 | NUR ---
PATIENT LEFT THE UNIT VIA W/C. ASSISTED TO LOBBY BY STAFF. ALL BELONGINGS KEPT BY PATIENT.
== END 2020-08-26 17:50 | disposition home health service (06) | DRG 468 ==
LOC: ED 01:06 → DU 03:07 → MU 03:07 → DU 04:34 → MU 06:43 → DU 14:00 → MU 08-25 16:31
PROVIDERS: Emergency Medicine; Internal Medicine; Internal Medicine Geriatric Medicine; Internal Medicine Nephrology; ADMIT Student in an Organized Health Care Education/Training Program; ATTEND Student in an Organized Health Care Education/Training Program
PROC: 30233N1 Transfusion of Nonautologous Red Blood Cells into Peripheral Vein, Percutaneous Approach (ICD-10-PCS; 2020-08-20)
PROC: 0W9D3ZZ Drainage of Pericardial Cavity, Percutaneous Approach (ICD-10-PCS; principal; 2020-08-20 13:00)
DX: E11.21 Type 2 diabetes mellitus with diabetic nephropathy (principal); I13.0 Hypertensive heart and chronic kidney disease with heart failure and stage 1 through stage 4 chronic kidney disease, or unspecified chronic kidney disease; E83.51 Hypocalcemia; N18.4 Chronic kidney disease, stage 4 (severe); E88.09 Other disorders of plasma-protein metabolism, not elsewhere classified; N49.2 Inflammatory disorders of scrotum; D64.9 Anemia, unspecified; E87.1 Hypo-osmolality and hyponatremia; E11.22 Type 2 diabetes mellitus with diabetic chronic kidney disease; Z20.828 Contact with and (suspected) exposure to other viral communicable diseases; Z79.01 Long term (current) use of anticoagulants; Z79.899 Other long term (current) drug therapy; Z79.891 Long term (current) use of opiate analgesic; Z79.84 Long term (current) use of oral hypoglycemic drugs; Z79.4 Long term (current) use of insulin; Z82.3 Family history of stroke; Z87.01 Personal history of pneumonia (recurrent)
CPT/HCPCS: 33010; 50200; 76930; 82962; 83880; 87116; 87206; 97116-GP; 97530-GP; C1884; C1887; C1893; C1894; G0378; J0885-EC; J1644; J1815; J1940; J2001; J2060; J2250; J2270; J2405; J2543; J2916; J3010; J3490; J7040; P9016; P9047; Q0092; Q0163; Q9967

== ENCOUNTER 2020-10-22 12:02 | Inpatient (IN) | payer OTHER, SELFPAY ==
[~2020-10-22] VITALS: Ht 170.2 cm; Wt 86.2 kg
[~2020-10-22 12:02] MED LIST changes: +HYDRALAZINE HCL50 MG PO; +XAN25 PO; +Z5 PO
[2020-10-22 13:42] VITALS: Ht 170.2 cm; Wt 86.2 kg
[2020-10-22 15:32] LABS: BASOPHIL % 0.3 % (0.2-1.5); PLATELET COUNT 311 x10^3mcL (152-348)
[2020-10-22 15:36] LABS: RED CELL DISTRIBUTION WIDTH 20.8 % (12.1-16.2)
[2020-10-22 15:51] LABS: CALCIUM 8.1 mg/dL (8.5-10.1); CARBON DIOXIDE 22.2 mmol/L (21-32); CREATININE SERUM 2.6 mg/dL (0.7-1.3); POTASSIUM SERUM 3.3 mmol/L (3.5-5.1)
[2020-10-22 15:54] LABS: ovalocyte/elliptocyte 1+; rbc morphology (normal/abnorm) NORMAL (NORMAL); tear drop cell (dacryocyte) 1+
[2020-10-22 15:57] LABS: BILIRUBIN TOTAL 0.5 mg/dL (0.20-1.00); T4(THYROXINE) 8.4 ug/dL (4.7-13.3); TOTAL PROTEIN, SERUM 8.2 g/dL (6.4-8.2)
[2020-10-22 16:14] LABS: ALBUMIN 1.9 g/dL (3.4-5.0)
[2020-10-22 17:55] LABS: UA SPECIFIC GRAVITY 1.025 (1.005-1.035); urine erythrocyte 2+ (NEGATIVE)
[2020-10-22 18:00] LABS: microscopic required? YES
[2020-10-22 18:16] LABS: AMPHETAMINE QUAL UR NONE DETECTED (See below)
[2020-10-22] MEDS ORDERED: HYDROXYZIN10 MG/5 M2 PO (18:50)
[2020-10-22] MEDS ORDERED: AMLODIPINE BESYL5 M2 PO (18:51)
[2020-10-22 22:12] LABS: CALCIUM 8.6 mg/dL (8.5-10.1); CARBON DIOXIDE 19.9 mmol/L (21-32); CREATININE SERUM 2.8 mg/dL (0.7-1.3)
[2020-10-22 22:22] LABS: POTASSIUM SERUM 2.9 mmol/L (3.5-5.1)
[2020-10-23 02:21] VITALS: BP 155/68
[2020-10-23 03:13] LABS: CALCIUM 8.1 mg/dL (8.5-10.1); CARBON DIOXIDE 30.7 mmol/L (21-32); CREATININE SERUM 3.3 mg/dL (0.7-1.3)
[2020-10-23 04:18] LABS: POTASSIUM SERUM 2.9 mmol/L (3.5-5.1)
[2020-10-23 07:22] LABS: CALCIUM 8.4 mg/dL (8.5-10.1); CARBON DIOXIDE 27.6 mmol/L (21-32); CREATININE SERUM 3.4 mg/dL (0.7-1.3); POTASSIUM SERUM 3.2 mmol/L (3.5-5.1)
[2020-10-23 07:50] VITALS: BP 152/60
[2020-10-23 10:47] LABS: CALCIUM 8.5 mg/dL (8.5-10.1); CARBON DIOXIDE 29.9 mmol/L (21-32); CREATININE SERUM 3.6 mg/dL (0.7-1.3)
[2020-10-23 11:17] LABS: POTASSIUM SERUM 2.8 mmol/L (3.5-5.1)
[2020-10-23 11:56] VITALS: BP 148/65
[2020-10-23 15:09] LABS: CALCIUM 8.7 mg/dL (8.5-10.1); CARBON DIOXIDE 27.4 mmol/L (21-32); CREATININE SERUM 3.9 mg/dL (0.7-1.3); POTASSIUM SERUM 3.1 mmol/L (3.5-5.1)
[2020-10-23 15:45] LABS: PLATELET COUNT 344 x10^3mcL (152-348)
[2020-10-23 15:48] LABS: RED CELL DISTRIBUTION WIDTH 21.8 % (12.1-16.2)
[2020-10-23 15:53] LABS: rbc morphology (normal/abnorm) NORMAL (NORMAL)
[2020-10-23 16:10] VITALS: BP 135/60
[2020-10-23 20:20] LABS: CALCIUM 8.2 mg/dL (8.5-10.1); CARBON DIOXIDE 30.1 mmol/L (21-32); POTASSIUM SERUM 3.1 mmol/L (3.5-5.1)
[2020-10-23 20:50] VITALS: BP 158/76
[2020-10-24 05:49] VITALS: BP 153/71
[2020-10-24 06:56] LABS: BASOPHIL % 0.3 % (0.2-1.5); PLATELET COUNT 320 x10^3mcL (152-348)
[2020-10-24 07:22] LABS: RED CELL DISTRIBUTION WIDTH 21.8 % (12.1-16.2)
[2020-10-24 07:32] LABS: CALCIUM 8.2 mg/dL (8.5-10.1); CARBON DIOXIDE 23.2 mmol/L (21-32); POTASSIUM SERUM 3.3 mmol/L (3.5-5.1)
[2020-10-24 07:36] LABS: CREATININE SERUM 4.3 mg/dL (0.7-1.3)
[2020-10-24 07:51] VITALS: BP 134/60
[2020-10-24 11:27] VITALS: BP 129/69
[2020-10-24 16:10] VITALS: BP 138/68
[2020-10-24 20:48] VITALS: BP 161/74
[2020-10-25 02:57] VITALS: BP 156/92
[2020-10-25 04:57] VITALS: BP 164/78
[2020-10-25 07:22] LABS: BASOPHIL % 0.3 % (0.2-1.5); PLATELET COUNT 332 x10^3mcL (152-348)
[2020-10-25 07:52] LABS: RED CELL DISTRIBUTION WIDTH 21.2 % (12.1-16.2)
[2020-10-25 07:59] LABS: CARBON DIOXIDE 22.6 mmol/L (21-32); CREATININE SERUM 3.7 mg/dL (0.7-1.3); POTASSIUM SERUM 3.1 mmol/L (3.5-5.1)
[2020-10-25 08:30] LABS: CALCIUM 8.3 mg/dL (8.5-10.1)
[2020-10-25 09:34] VITALS: BP 160/87
[2020-10-25 13:03] VITALS: BP 145/70
[2020-10-25 16:16] LABS: rbc morphology (normal/abnorm) ABNORMAL (NORMAL)
[2020-10-25 17:23] VITALS: BP 118/60
[2020-10-25 20:55] VITALS: BP 136/69
[2020-10-26 06:07] VITALS: BP 157/72
[2020-10-26 08:20] LABS: BASOPHIL % 0.7 % (0.2-1.5); PLATELET COUNT 319 x10^3mcL (152-348)
[2020-10-26 08:46] VITALS: BP 162/83
[2020-10-26 09:02] LABS: PHOSPHOROUS 5.2 mg/dL (2.5-4.9)
[2020-10-26 09:25] LABS: CALCIUM 7.5 mg/dL (8.5-10.1); CARBON DIOXIDE 21.2 mmol/L (21-32)
[2020-10-26 09:28] LABS: CREATININE SERUM 4.1 mg/dL (0.7-1.3)
[2020-10-26 09:40] LABS: RED CELL DISTRIBUTION WIDTH 21.6 % (12.1-16.2)
[2020-10-26 12:29] VITALS: BP 130/70
[2020-10-26 14:55] LABS: rbc morphology (normal/abnorm) NORMAL (NORMAL)
[2020-10-26 17:40] VITALS: BP 135/68
[2020-10-26 22:06] VITALS: BP 135/78
[2020-10-27 06:36] VITALS: BP 162/72
[2020-10-27 07:52] LABS: BASOPHIL % 0.7 % (0.2-1.5); PLATELET COUNT 331 x10^3mcL (152-348)
[2020-10-27 08:00] VITALS: BP 128/60
[2020-10-27 08:27] LABS: RED CELL DISTRIBUTION WIDTH 21.4 % (12.1-16.2)
[2020-10-27 08:28] LABS: rbc morphology (normal/abnorm) NORMAL (NORMAL)
[2020-10-27 09:22] LABS: CARBON DIOXIDE 21.3 mmol/L (21-32); POTASSIUM SERUM 3.4 mmol/L (3.5-5.1)
[2020-10-27 09:27] LABS: CREATININE SERUM 4.5 mg/dL (0.7-1.3)
[2020-10-27 10:54] LABS: CALCIUM 7.6 mg/dL (8.5-10.1)
[2020-10-27 13:12] VITALS: BP 107/57
[2020-10-27 17:00] VITALS: BP 139/75
[2020-10-27 20:35] VITALS: BP 150/75
[2020-10-28 05:34] VITALS: BP 158/79
[2020-10-28 07:25] LABS: BASOPHIL % 0.5 % (0.2-1.5); PLATELET COUNT 267 x10^3mcL (152-348)
[2020-10-28 07:44] LABS: CALCIUM 7.8 mg/dL (8.5-10.1); CARBON DIOXIDE 26.1 mmol/L (21-32); CREATININE SERUM 3.4 mg/dL (0.7-1.3); POTASSIUM SERUM 3.9 mmol/L (3.5-5.1)
[2020-10-28 08:05] VITALS: BP 140/70
[2020-10-28 08:10] LABS: RED CELL DISTRIBUTION WIDTH 21.6 % (12.1-16.2)
[2020-10-28] MEDS ORDERED: DIF100 PO (10:13)
[2020-10-28] MEDS ORDERED: ELA25 PO (10:13)
[2020-10-28] MEDS ORDERED: CORE25 PO (10:13)
[2020-10-28] MEDS ORDERED: LAC30L PO (10:14)
[2020-10-28] MEDS ORDERED: ATIVAN0.5 M1 PO (10:15)
[2020-10-28 11:47] VITALS: BP 140/70
[2020-10-28 13:01] VITALS: BP 171/89
[2020-10-28 16:46] VITALS: BP 124/77
== END 2020-10-28 18:29 | disposition home or self-care (01) | DRG 720 ==
LOC: ED 12:02 → MU 18:22 → DU 18:22 → MU 10-23 01:01 → DU 10-23 01:08 → MU 10-28 18:29
PROVIDERS: Emergency Medicine; Internal Medicine Gastroenterology; ADMIT Family Medicine; ATTEND Family Medicine
PROC: 5A1D70Z Performance of Urinary Filtration, Intermittent, Less than 6 Hours Per Day (ICD-10-PCS; principal; 2020-10-24)
PROC: 0DB58ZX Excision of Esophagus, Via Natural or Artificial Opening Endoscopic, Diagnostic (ICD-10-PCS; 2020-10-27)
PROC: 0DJD8ZZ Inspection of Lower Intestinal Tract, Via Natural or Artificial Opening Endoscopic (ICD-10-PCS; 2020-10-27)
PROC: 5A1D70Z Performance of Urinary Filtration, Intermittent, Less than 6 Hours Per Day (ICD-10-PCS; 2020-10-27 08:30)
DX: A41.9 Sepsis, unspecified organism (principal); B37.81 Candidal esophagitis; E11.22 Type 2 diabetes mellitus with diabetic chronic kidney disease; I12.0 Hypertensive chronic kidney disease with stage 5 chronic kidney disease or end stage renal disease; E11.65 Type 2 diabetes mellitus with hyperglycemia; Z20.828 Contact with and (suspected) exposure to other viral communicable diseases; N18.6 End stage renal disease; K52.9 Noninfective gastroenteritis and colitis, unspecified; Z99.2 Dependence on renal dialysis; E87.6 Hypokalemia; D63.8 Anemia in other chronic diseases classified elsewhere
CPT/HCPCS: 36600; 43235; 45378; 82962; C9113; G0378; J0500; J1200; J1450; J1610; J1644; J1815; J2060; J2250; J2270; J2310; J2405; J2543; J3010; J3480; J3490; J7030; J7040

== ENCOUNTER 2020-11-19 10:38 | Inpatient (IN) | payer OTHER ==
[~2020-11-19] VITALS: Ht 170.2 cm; Wt 87.5 kg
[~2020-11-19 10:38] MED LIST changes: +AMLODIPINE BESYL5 M2 PO; +ATIVAN0.5 M1 PO; +CORE25 PO; +DIF100 PO; +ELA25 PO; +HYDROXYZIN10 MG/5 M2 PO; +LAC30L PO
[2020-11-19 15:24] LABS: BASOPHIL % 0.5 % (0.2-1.5); PLATELET COUNT 396 x10^3mcL (152-348)
[2020-11-19 15:32] LABS: RED CELL DISTRIBUTION WIDTH 17.1 % (12.1-16.2)
[2020-11-19 15:33] LABS: BILIRUBIN TOTAL 0.49 mg/dL (0.20-1.00); CALCIUM 8.2 mg/dL (8.5-10.1); CARBON DIOXIDE 13.7 mmol/L (21-32); POTASSIUM SERUM 4.1 mmol/L (3.5-5.1); TOTAL PROTEIN, SERUM 7.4 g/dL (6.4-8.2)
[2020-11-19 15:34] LABS: ALBUMIN 1.6 g/dL (3.4-5.0)
[2020-11-19 15:39] LABS: CREATININE SERUM 4.1 mg/dL (0.7-1.3)
[2020-11-19 17:13] LABS: rbc morphology (normal/abnorm) NORMAL (NORMAL)
[2020-11-20 00:55] LABS: urine erythrocyte 1+ (NEGATIVE)
[2020-11-20 01:24] LABS: microscopic required? YES
[2020-11-20 01:28] LABS: AMPHETAMINE QUAL UR NONE DETECTED (See below)
[2020-11-20 05:06] LABS: BILIRUBIN TOTAL 0.18 mg/dL (0.20-1.00); CALCIUM 7.8 mg/dL (8.5-10.1); CARBON DIOXIDE 26.2 mmol/L (21-32); POTASSIUM SERUM 3.1 mmol/L (3.5-5.1); TOTAL PROTEIN, SERUM 6.2 g/dL (6.4-8.2)
[2020-11-20 05:08] LABS: ALBUMIN 1.3 g/dL (3.4-5.0); CREATININE SERUM 4.4 mg/dL (0.7-1.3)
[2020-11-20 10:08] LABS: CALCIUM 7.7 mg/dL (8.5-10.1); CARBON DIOXIDE 26.2 mmol/L (21-32)
[2020-11-20 11:57] LABS: CREATININE SERUM 4.3 mg/dL (0.7-1.3); POTASSIUM SERUM 2.9 mmol/L (3.5-5.1)
[2020-11-20 13:11] LABS: CALCIUM 7.5 mg/dL (8.5-10.1); CARBON DIOXIDE 27.8 mmol/L (21-32); POTASSIUM SERUM 3.1 mmol/L (3.5-5.1)
[2020-11-20 13:13] LABS: CREATININE SERUM 4.2 mg/dL (0.7-1.3)
[2020-11-20 20:13] LABS: CALCIUM 7.3 mg/dL (8.5-10.1); CARBON DIOXIDE 24.6 mmol/L (21-32); POTASSIUM SERUM 3.6 mmol/L (3.5-5.1)
[2020-11-20 20:17] LABS: CREATININE SERUM 4.1 mg/dL (0.7-1.3)
[2020-11-20 21:39] LABS: CALCIUM 7.4 mg/dL (8.5-10.1); CARBON DIOXIDE 24.4 mmol/L (21-32); POTASSIUM SERUM 3.9 mmol/L (3.5-5.1)
[2020-11-20 21:41] LABS: CREATININE SERUM 4.1 mg/dL (0.7-1.3)
[2020-11-21 03:37] LABS: CALCIUM 7.7 mg/dL (8.5-10.1); CARBON DIOXIDE 25.1 mmol/L (21-32); POTASSIUM SERUM 3.6 mmol/L (3.5-5.1)
[2020-11-21 04:12] LABS: CREATININE SERUM 4.2 mg/dL (0.7-1.3)
[2020-11-21 04:33] LABS: BASOPHIL % 0.5 % (0.2-1.5); PLATELET COUNT 278 x10^3mcL (152-348)
[2020-11-21 04:42] LABS: RED CELL DISTRIBUTION WIDTH 17.3 % (12.1-16.2)
[2020-11-21 05:13] LABS: POTASSIUM SERUM 3.7 mmol/L (3.5-5.1)
[2020-11-21 05:18] LABS: MAGNESIUM 1.9 mg/dL (1.8-2.4); PHOSPHOROUS 4.7 mg/dL (2.5-4.9)
[2020-11-21 05:20] LABS: CARBON DIOXIDE 24.2 mmol/L (21-32)
[2020-11-21 05:21] LABS: CALCIUM 7.7 mg/dL (8.5-10.1); CREATININE SERUM 4.2 mg/dL (0.7-1.3)
[2020-11-22 00:04] VITALS: BP 186/94
[2020-11-22 00:08] VITALS: Ht 170.2 cm; Wt 87.5 kg
[2020-11-22 02:18] LABS: CALCIUM 7.8 mg/dL (8.5-10.1); CARBON DIOXIDE 26.5 mmol/L (21-32); CREATININE SERUM 3.4 mg/dL (0.7-1.3); POTASSIUM SERUM 3.6 mmol/L (3.5-5.1)
[2020-11-22 06:58] VITALS: BP 154/71
[2020-11-22 08:58] VITALS: BP 118/82
[2020-11-22 09:37] LABS: BASOPHIL % 0.8 % (0.2-1.5); PLATELET COUNT 301 x10^3mcL (152-348)
[2020-11-22 10:08] LABS: RED CELL DISTRIBUTION WIDTH 17.4 % (12.1-16.2)
[2020-11-22 10:21] LABS: CALCIUM 7.7 mg/dL (8.5-10.1); POTASSIUM SERUM 3.2 mmol/L (3.5-5.1)
[2020-11-22 10:58] LABS: CREATININE SERUM 3.6 mg/dL (0.7-1.3)
[2020-11-22 11:00] LABS: rbc morphology (normal/abnorm) NORMAL (NORMAL)
[2020-11-22 11:25] LABS: CALCIUM 7.6 mg/dL (8.5-10.1); CARBON DIOXIDE 27.9 mmol/L (21-32); CREATININE SERUM 3.4 mg/dL (0.7-1.3); POTASSIUM SERUM 3.6 mmol/L (3.5-5.1)
[2020-11-22 11:28] LABS: MAGNESIUM 1.9 mg/dL (1.8-2.4); PHOSPHOROUS 3.2 mg/dL (2.5-4.9)
[2020-11-22 12:10] VITALS: BP 145/75
[2020-11-22 12:34] LABS: CALCIUM 7.3 mg/dL (8.5-10.1); CARBON DIOXIDE 29.6 mmol/L (21-32); CREATININE SERUM 3.4 mg/dL (0.7-1.3); POTASSIUM SERUM 3.2 mmol/L (3.5-5.1)
[2020-11-22 18:01] VITALS: BP 152/76
[2020-11-22 20:29] LABS: CALCIUM 7.6 mg/dL (8.5-10.1); CARBON DIOXIDE 28.8 mmol/L (21-32); CREATININE SERUM 3.6 mg/dL (0.7-1.3); POTASSIUM SERUM 3.1 mmol/L (3.5-5.1)
[2020-11-22 21:34] VITALS: BP 138/72
[2020-11-23 05:52] VITALS: BP 140/74
[2020-11-23 09:44] VITALS: BP 147/78
[2020-11-23 11:04] LABS: BASOPHIL % 0.7 % (0.2-1.5); PLATELET COUNT 293 x10^3mcL (152-348)
[2020-11-23 11:13] LABS: CALCIUM 7.4 mg/dL (8.5-10.1); CARBON DIOXIDE 26.8 mmol/L (21-32); CREATININE SERUM 3.5 mg/dL (0.7-1.3); MAGNESIUM 1.9 mg/dL (1.8-2.4); PHOSPHOROUS 3.9 mg/dL (2.5-4.9); POTASSIUM SERUM 3.9 mmol/L (3.5-5.1)
[2020-11-23 11:43] LABS: RED CELL DISTRIBUTION WIDTH 17.2 % (12.1-16.2)
[2020-11-23] MEDS ORDERED: LANTI SQ (12:19)
[2020-11-23] MEDS ORDERED: AMLODIPINE BESYL5 M2 PO ×2 (12:30→13:00)
[2020-11-23] MEDS ORDERED: ATORVASTATIN CA40 M1 PO (12:33)
[2020-11-23 13:14] VITALS: BP 150/74
[2020-11-23 14:52] LABS: rbc morphology (normal/abnorm) ABNORMAL (NORMAL)
[2020-11-23 15:15] VITALS: BP 150/77
[2020-11-23 17:26] VITALS: BP 131/71
[2020-11-23] MEDS ORDERED: REGLAN10 M1 PO (18:47)
== END 2020-11-23 21:20 | disposition home or self-care (01) | DRG 420 ==
LOC: ED 10:38 → IC 17:41 → DU 17:41
PROVIDERS: Emergency Medicine; Internal Medicine Nephrology; ADMIT Family Medicine; ATTEND Family Medicine
PROC: 5A1D70Z Performance of Urinary Filtration, Intermittent, Less than 6 Hours Per Day (ICD-10-PCS; principal; 2020-11-21)
DX: E11.10 Type 2 diabetes mellitus with ketoacidosis without coma (principal); U07.1 COVID-19; J96.00 Acute respiratory failure, unspecified whether with hypoxia or hypercapnia; I12.0 Hypertensive chronic kidney disease with stage 5 chronic kidney disease or end stage renal disease; N12 Tubulo-interstitial nephritis, not specified as acute or chronic; E83.51 Hypocalcemia; N18.6 End stage renal disease; E11.22 Type 2 diabetes mellitus with diabetic chronic kidney disease; E87.1 Hypo-osmolality and hyponatremia; E11.65 Type 2 diabetes mellitus with hyperglycemia; Z99.2 Dependence on renal dialysis; Z82.3 Family history of stroke
CPT/HCPCS: 82962; G0378; J0696; J1644; J1815; J2270; J2405; J2765; J3480; J3490; J7030; J7042

== ENCOUNTER 2020-12-27 09:43 | Inpatient (IN) | payer OTHER ==
[~2020-12-27] VITALS: Ht 170.2 cm; Wt 81.6 kg
[~2020-12-27 09:43] MED LIST changes: +ATORVASTATIN CA40 M1 PO; +REGLAN10 M1 PO
[2020-12-27 09:47] VITALS: Ht 170.2 cm; Wt 81.6 kg
--- NOTE | 2020-12-27 10:32 | NUR ---
PT BIB [facility] C/O BACK PAIN WITH N/V X 2 DAYS. PT AA/OX4. RESP EVEN AND UNLABORED. PT AMBULATORY FROM [facility] TO ED [facility]. PT PLACED IN GOWN AND ON FULL CM. PT STS "MY BACK PAIN GOT WORSE YESTERDAY AFTER DIAYLSIS AND THEN THE VOMITING STARTED THIS AM." PT NOTED TO HAVE RED BLOOD IN EMESIS BAG. IV INSERTED IN LAC 20G. DR SMITH IRWIN AT BEDSIDE FOR MSE.
--- NOTE | 2020-12-27 10:32 | NUR ---
PT BIB [facility] FOR C/O BACK PAIN WITH N/V X 1 DA
[2020-12-27 10:39] LABS: CALCIUM 8.2 mg/dL (8.5-10.1); CARBON DIOXIDE 27.9 mmol/L (21-32); CREATININE SERUM 3.2 mg/dL (0.7-1.3); POTASSIUM SERUM 3.9 mmol/L (3.5-5.1)
[2020-12-27 10:43] LABS: BILIRUBIN TOTAL 0.4 mg/dL (0.20-1.00); TOTAL PROTEIN, SERUM 7.4 g/dL (6.4-8.2)
[2020-12-27 10:46] LABS: ALBUMIN 1.6 g/dL (3.4-5.0)
[2020-12-27 11:38] LABS: BASOPHIL % 0.3 % (0.2-1.5); PLATELET COUNT 363 x10^3mcL (152-348)
--- NOTE | 2020-12-27 11:45 | NUR ---
PT LAYING ON RIGHT SIDE IN POSITION OF COMFORT. EASILY AROUSABLE. PT STS "I AM FEELING BETTER." BACK PAIN 03/22. N/V GETTING BETTER. PT ON FULL CM. AWARE. NO NEW ORDERS. WILL CONT TO MONITOR
[2020-12-27 12:07] LABS: RED CELL DISTRIBUTION WIDTH 18.2 % (12.1-16.2)
--- NOTE | 2020-12-27 13:09 | NUR ---
PT MEDICATED PER MD ORDER. SEE EMAR. PT AA/OX4. RESP EVEN AND UNLABORED. PT ON MONITOR
[2020-12-27] MEDS ORDERED: REG10 PO (13:15)
[2020-12-27] MEDS ORDERED: OMEPRAZOLE40 M1 PO (13:15)
--- NOTE | 2020-12-27 13:33 | NUR ---
PT STS " I WANT TO STAY AT LEAST ONE NIGHT I DONT FEEL RIGHT AND IF I GO HOME I WILL BE COMING BACK." PT AA/OX4. RESP EVEN AND UNLABORED. DR SMITH IRWIN AWARE. PT ON FULL CM. WILL CONT TO MONITOR
--- NOTE | 2020-12-27 14:40 | NUR ---
PT GIVEN ICE CHIPS. VERBAL OK FROM RESIDENT. PT AA/OX4. RESP EVEN AND UNLABORED. PT ON MONITOR. WILL CONT TO MONITOR
[2020-12-27 15:19] LABS: PHOSPHOROUS 4.2 mg/dL (2.5-4.9)
--- NOTE | 2020-12-27 15:58 | NUR ---
REPORT CALLED TO RAVEN RENAE TO ASSUME CARE OF PT.
--- NOTE | 2020-12-27 16:30 | NUR ---
RECIEVED PATIENT FROM RESOURCES NURSE. PATIENT IS CURRENTLY AWAKE ALERT AND ORIENTED X 4. PATIENT IS CURRENTLY ON ISOLATION PRECAUTIONS. ASHELY POSITIVE PENDING PCR RESULTS. PATIENT IS ON ROOM AIR, LUNG SOUNDS CLEAR TO AUSCULTATION. NO SOB NOTED. PATIENT CURRENTLY AFEBRILE. PATIENT IS CURRENTLY NPO PATIENT HAS BEEN REPORTING ABD PAIN, NAUSEA, AND VOMITTING. PATIENT HAS RIGHT CHEST OREN CATH IN PLACE. PATIENT CURRENTLY RECIEVING D5NS AT 30cc/HOUR TO THE LAC. PER PATIENT, LAST HD YESTERDAY. SAFETY PRECAUTIONS IN PLACE. CALL LIGHT WITHIN REACH. WILL CONTINUE TO PROVIDE CARE FOR PATIENT.
[2020-12-27 16:51] VITALS: BP 154/84
[2020-12-27 16:55] VITALS: BP 154/48
--- NOTE | 2020-12-27 17:02 | NUR ---
RECEIVED PT FROM ER, PT ADMIT FOR INTRACTABLE PAIN/VOMITING. PT IS A/O X4, VERBAL RESPONSIVE. LUNG SOUND CLEAR BILATERAL, NO COUGH, NO SOB.PO2 98% IN ROOM AIR. PT IS ON TELE 18, ST. DENY ANY CHEST PAIN OR DISCOMFORT. BOWEL SOUND PRESENT ALL 4 QUADRANTS, NO DISTENTION, NO TENDER. STILL C/O N/V. BUT DENY ANY ABD PAIN. PEDAL PULSE PRESENT BOTH FEET, +2 EDEMA BLE. IV AT LEFT AC, NO LEAKING, NO INFILTRAITON. OREN CATH AT RIGHT UP CHEST. DRESSING INTACT. PT STATE LAST DIALYSIS WAS SAT. AND 3.5L OUT. ALL ADLS ASSIST, ALL NEED MET, CALL LIGHT IN REACH, WILL CONTINUE TO MONITOR
--- NOTE | 2020-12-27 19:01 | NUR ---
PATIENT IS CURRENTLY AWAKE ALERT AND ORIENTED X 4. PATIENT ON ROOM AIR, LUNG SOUNDS CTA. PATIENT AFEBRILE. PATIENT CURRENTLY ON ISOLATION PRECAUTIONS FOR COVID 19. PATIENT IS CURRENTLY NPO PER PHYSICIAN ORDER. D5NS INFUSING AT 30cc/HOUR TO THE LAC. CURRENTLY PENDING PCR RESULTS. SAFETY PRECAUTIONS IN PLACE. CALL LIGHT WITHIN REACH. WILL ENDORSE ALL FURTHER CARE TO THE NOC NURSE.
[2020-12-27 19:28] VITALS: BP 162/80
--- NOTE | 2020-12-27 20:13 | NUR ---
RECEIVED REPORT FROM AM NURSE. PT IS A&OX4. PT IS ON TELE #15, SINUS TACHYCARDIA, HR 112. LUNG SOUNDS ARE CLEAR. PT IS ON ROOM AIR, SPO2 90%. PT HAS A OREN CATH ON R CHEST. PT IS A HD PATIENT. SCHEDULE IS . PT HAS A CANE AT BEDSIDE, REPORTS UTILIZING A WALKER AT HOME BUT UNABLE TO BRING WALKER IN AMBULANCE. PT CURRENTLY HAS BACK PAIN, 8/10. REPORTS FEELING NAUSEA. IV SITE IS CLEAN, DRY, AND INTACT. IV IS CURRENTLY RUNNING D5NS AT 30 ML/HR. NO SIGN OF INFECTION NOTED. NO SIGNS OF INFILTRATION NOTED. CALL LIGHT IS WITHIN REACH. WILL CONTINUE TO MONITOR.
--- NOTE | 2020-12-27 22:00 | NUR ---
PT HAS 8/10 BACK PAIN. OFFERED NORCO. PT REFUSED. STATES "UPSETS MY STOMACH". PT REQUESTS MORPHINE. BLOOD SUGAR WAS 273, LANTUS WAS GIVEN. PT REFUSED REGULAR INSULIN STATES "IT WILL DROP MY BLOOD SUGAR TOO MUCH". EXPLAINED TO PT HE IS ON D5NS AND HE IS CONTINUOUSLY GETTING DEXTROSE X3. PT STILL REFUSED. CALL LIGHT IS WITHIN REACH. WILL CONTINUE TO MONITOR.
--- NOTE | 2020-12-27 22:24 | NUR ---
NOTIFIED DOCTOR MARTIN REGARDING PT'S 8/10 BACK PAIN, PT REFUSING NORCO, AND PT REQUESTING MORPHINE. WILL CONTINUE TO MONITOR.
--- NOTE | 2020-12-28 00:08 | NUR ---
PT IS RESTING IN BED WITH EYES CLOSES BUT IS EASILY AROUSABLE. PT IS NOT IN ACUTE DISTRESS AT THIS TIME. NO C/O PAIN OR DISCOMFORT. CALL LIGHT IS IN PLACE. WILL CONTINUE TO MONITOR.
[2020-12-28 00:17] LABS: urine erythrocyte 2+ (NEGATIVE)
[2020-12-28 00:23] LABS: microscopic required? YES
[2020-12-28 01:21] LABS: AMPHETAMINE QUAL UR NONE DETECTED (See below)
[2020-12-28 05:06] VITALS: BP 151/69
--- NOTE | 2020-12-28 05:44 | NUR ---
PT IS RESTING IN BED WITH EYES CLOSED BUT IS EASILY AROUSABLE. PT IS NOT IN ACUTE DISTRESS AT THIS TIME. PT HAS C/O 8/10 PAIN IN HIS BACK. OFFERED PT NORCO. PT REFUSED NORCO. PT STATED HE WANTS MORPHINE. WILL NOTIFY DOCTOR.
--- NOTE | 2020-12-28 05:48 | NUR ---
NOTIFIED DOCTOR REGARDING PT'S BACK PAIN AND PT'S REQUEST FOR MORPHINE. WILL CONTINUE TO MONITOR
[2020-12-28 06:36] LABS: BASOPHIL % 0.7 % (0.2-1.5); PLATELET COUNT 358 x10^3mcL (152-348)
[2020-12-28 07:08] LABS: CALCIUM 7.9 mg/dL (8.5-10.1); CARBON DIOXIDE 31.4 mmol/L (21-32); CREATININE SERUM 3.6 mg/dL (0.7-1.3); MAGNESIUM 2.1 mg/dL (1.8-2.4); PHOSPHOROUS 4.9 mg/dL (2.5-4.9)
--- NOTE | 2020-12-28 07:35 | NUR ---
RN AT BEDSIDE TO ASSESS PT. PT APPEARS TO BE SLEEPING, RIGHT LATERAL, ON ROOM AIR, APPEARS TO BE TOLERATING WELL BREATHING IS EVEN AND UNLABORED, SPO2 98%, TELEMETRY SHOWING NSR, URINAL AT BEDSIDE, DIALYSIS CATHETER NOTED TO RIGHT CHEST, DRESSING IS DRY AND INTACT, CANE AT BEDSIDE, D5NS INFUSING INTO PIV WITHOUT DIFFICULTY, CALL MCCONNELL WITHIN REACH, BED IN LOWEST LOCKED POSITION, NO APPARENT NEEDS AT THIS TIME
[2020-12-28 08:25] VITALS: BP 152/66
[2020-12-28 12:20] VITALS: BP 136/72
[2020-12-28 16:59] VITALS: BP 138/71
--- NOTE | 2020-12-28 17:30 | NUR ---
RN AT BEDSIDE TO ASSESS PT. PT IS NOW ON FULL LIQUID DIET, TOLERATING WELL. NO C/O NAUSEA AT THIS TIME. PT IS RIGHT LATERAL, ROOM AIR, TOLERATING WELL, SPO2 98%, DENIES SOB, DENIES PAIN, BED REMAINS IN LOWEST LOCKED POSITION, CALL MCCONNELL IS WITHIN REACH, URINAL IS WITHIN REACH, ALL NEED AND CONCERNS ADDRESSED DURING VISIT
[2020-12-28 20:40] VITALS: BP 136/61
--- NOTE | 2020-12-28 22:41 | NUR ---
1915 RECEIVED PATIENT IN BED,AWAKE,ALERT,AND ORIENTED .SKIN WARM AND DRY TO TOUCH.RESPIRATION EVEN AND UNLABORED,NO RESPIRATORY DISTRESS.ON ROOM AIR WITH O2 SAT.98%.LUNGS SOUND DIMINISHED UPON AUSCULTATION.ON NSR TELE #15.HAD EPISODES OF FEELING NAUSEATED AND C/O OF BACK PAIN ,MEDS GIVEN ORDERED WITH WITH GOOD RELIEF.CALL LIGHT WITHIN REACH.
--- NOTE | 2020-12-29 04:44 | NUR ---
PATIENT SLEPT WELL AT NIGHT,REMAINED ALERT AND ORIENTED X 4.ON NSR TELE MONITOR.RT. CHEST OREN CATH IN PLACE FOR POSSIBLE HD THIS AM.LUNGS SOUND CLEAR UPON AUSCULTATION. VOIDING FREELY CONTINENTLY.NO FURTHER N/V NOTED. KEPT COMFORTABLE.
[2020-12-29 05:37] VITALS: BP 139/62
[2020-12-29 07:17] LABS: BASOPHIL % 0.4 % (0.2-1.5); PLATELET COUNT 369 x10^3mcL (152-348)
--- NOTE | 2020-12-29 07:35 | NUR ---
RN AT BEDSIDE TO ASSESS PT. PT APPEARS TO BE SLEEPING, SEMI FOWLERS LEFT LATERAL POSITIONING, ROOM AIR, TOLERATING WELL, BREATHING EVEN AND UNLABORED, SPO2 98% NO S/S PAIN OR DISTRESS, PIV DRY AND INTACT, SINUS RHYTHM ON TELEMETRY, BED IN LOWEST LOCKED POSITION, CALL MCCONNELL AND URINAL WITHIN REACH, NO APPARENT NEEDS AT THIS TIME
--- NOTE | 2020-12-29 07:42 | NUR ---
RN AT BEDSIDE TO ASSESS PT. PT APPEARS TO BE SLEEPING. PT IS IN SEMI FOWLERS RIGHT TILT, O2 SUPPORT 10L NONREBREATHER MASK AND 40L HEATED HIGH FLOW NASAL CANNULA, CONTINUOUS PULSE OXIMETER READING 93%, BREATHING APPEARS TO BE EVEN AND UNLABORED, SINUS TACHYCARDIA ON TELEMETRY, BREATH SOUNDS CLEAR BUT DIMINISHED BILATERALLY, NO S/S PAIN OR DISTRESS, BED IS IN LOWEST LOCKED POSITION, URINAL AND CALL MCCONNELL WITHIN REACH, NO APPARENT NEEDS AT THIS TIME
[2020-12-29 07:53] LABS: BILIRUBIN TOTAL 0.23 mg/dL (0.20-1.00); CALCIUM 7.7 mg/dL (8.5-10.1); CARBON DIOXIDE 31.1 mmol/L (21-32); CREATININE SERUM 3.8 mg/dL (0.7-1.3); POTASSIUM SERUM 3.9 mmol/L (3.5-5.1)
[2020-12-29 08:00] LABS: RED CELL DISTRIBUTION WIDTH 17.5 % (12.1-16.2)
[2020-12-29 08:07] LABS: ALBUMIN 1.2 g/dL (3.4-5.0)
[2020-12-29 08:22] VITALS: BP 145/70
[2020-12-29 11:49] VITALS: BP 131/71
[2020-12-29 16:17] VITALS: BP 131/68
--- NOTE | 2020-12-29 17:42 | NUR ---
RN AT BEDSIDE TO ASSESS PT. PT IS CURRENTLY GETTING DIALYSIS, AVIONICS TECHNICIAN BENITO AT BEDSIDE ALSO ASSESSING PT. PT IS SITTING SEMI-FOWLERS, DINNER TRAY SET UP FOR PT, ROOM AIR, TOLERATING WELL, BREATHING UNLABORED, SPO2 96%, LUNG SOUNDS CLEAR, POSITIVE BOWEL, SOUNDS, PT DENIES NAUSEA, NO EPISODES OF VOMTIING TODAY, PT IS TOLERATING SOLID DIET. DENIES PAIN, DENIES SOB, NO S/S DISTRESS NOTED, CALL MCCONNELL AND URINAL WITHIN REACH, BED IS IN LOWEST LOCKED POSITION, ALL NEEDS AND CONCERNS ADDRESSED DURING VISIT
[2020-12-29 21:47] VITALS: BP 138/66
--- NOTE | 2020-12-29 23:54 | NUR ---
PATIENT AWAKE,ALERT,AND ORIENTED .SKIN WARM AND DRY TO TOUCH.LUNGS CLEAR UPON AUSCULTATION.ON 3L/MIN VIA N/C FOR SOB WTIH GOOD RELIEF.ON O2 SAT.98%.ON NSR ON TELE #23 .ABLE TO AMBULATE TO BATHROOM USING CANE WITH SLOW STEADY GAIT.CALL LIGHT WITHIN REACH.
--- NOTE | 2020-12-30 05:12 | NUR ---
PATIENT SLEPT WELL AT NIGHT,NO EPISODES OF N/V NOTED.REMAINED ON ROOM AIR,NO SOB NOTED.NSR TELE MONITOR .RT CHEST PERMACATH INTACT.DENIES PAIN AND DISCOMFORT. CALL LIGHT WITH REACH.KEPT COMFORTABLE.
[2020-12-30 05:59] VITALS: BP 150/80
[2020-12-30 06:46] LABS: BASOPHIL % 0.6 % (0.2-1.5); PLATELET COUNT 358 x10^3mcL (152-348)
[2020-12-30 07:07] LABS: RED CELL DISTRIBUTION WIDTH 17.6 % (12.1-16.2)
--- NOTE | 2020-12-30 08:00 | NUR ---
RECEIVED PATIENT ALERT AND ORIENTED TIMES FOUR. LAST BLOOD SUGAR AT 66 AND PATIENT HAS A NEW ORDER FOR D5W. PATIENT THOUGH WAS VERY HIGH ON ADMIT. A DIALYSIS PATIENT WITH MAMIE TO THE RIGHT CHEST INTACT AND NO SIGNS OF INFECTION AND NO ACTIVE BLEEDING SEEN. PATIENT HAS DIMINISHED BUT CLEAR BREATH SOUNDS AND BOWEL SOUNDS ACTIVE. PATIENT HAS BEEN USING A CANE AT HOME DUE TO HISTORY OF FRACTURE ANKLE AND SURGERY. HE HAS CHRONIC PAIN DUE TO THE FRACTURE. PATEINT AHS SOME TRACE EDEMA TO THE LOWER EXTREMITIES AND AT THIST TIME DENIES PAIN OR DISCOMFORT. IV INTACT AND PATIENT HAS TAKE HIS MEDICATIONS AND TOLERATE DIET ORDERED. VITALS AT THIS TIME AT 97.4, 69, 19, 150/80, 95%. HE HAS BEEN ON ROOM AIR. NOTED LABS ARE THE BUN AT 32.0AND CRATININE AT 3.8. HE ALSO HAS SOME LIVER ISSUES PER HISTORY. WILL CONTINUE TO ENCOURAGE COMPLIANCE WITH CARE.
[2020-12-30 08:05] LABS: CALCIUM 7.7 mg/dL (8.5-10.1); CARBON DIOXIDE 32.2 mmol/L (21-32); CREATININE SERUM 3.7 mg/dL (0.7-1.3); MAGNESIUM 1.9 mg/dL (1.8-2.4); PHOSPHOROUS 4.2 mg/dL (2.5-4.9); POTASSIUM SERUM 3.5 mmol/L (3.5-5.1)
[2020-12-30 08:20] VITALS: BP 133/72
--- NOTE | 2020-12-30 11:09 | NUR ---
SEEN BY PRIMARY AND AWAITIG ANY NEW ORDERS AT THIS TIME.
[2020-12-30 11:55] VITALS: BP 129/64
--- NOTE | 2020-12-30 12:06 | NUR ---
PATIENT S ORDER FOR DISCHARGE HOME TODAY. PATIENT HAS BEEN WITH SUGAR AT THIS TIME AT 104. WILL CONTINUE TO MONITOR AND PLAN FOR PAPERWORK TO BE COMPLETED INDICATED.
--- NOTE | 2020-12-30 13:36 | NUR ---
PATIENT ADVISED OF PLAN FOR DISCHARGE TODAY. STATES HE STILL FEELS DIZZY AND HAS HAD HICCUPS WELL. HE HAS BEEN AT THE [facility] SO HE HAS A CHAIR FOR HIS DIALYSIS AND HE ALSO STATES THERE IS NO RIDE TILL FOUR THIRTY OR FIVE TODAY. HE IS LYING IN BED AND DID NOT EVEN WANT TO GO OVER THE PAPERWORK. ADVISED STAFF WILL RETURN. HE HAS BEEN STABLE BUT HE DOES NOT SEEM TO BE WANTING TO GO HOME JUST YET.
--- NOTE | 2020-12-30 14:16 | NUR ---
ATTEMPTED TO GIVE DISCHARGE PAPERWORK BUT PATIENT DOES NTO SEEM TO FEEL HE CAN GO YET. HE STATES HE FEELS DIZZY AND HAS NO RIDE TILL FOUR THIRTY OR FIVE. ADVISED THE CHARGE OF THIS. PATIENT HAS BEEN RESTING QUIETLY AND DOES NOT APPEAR IN ANY ACUTE DISTRESS.
[2020-12-30] MEDS ORDERED: APAP/HYDROCODON1 T13 PO (15:41)
[2020-12-30 16:56] VITALS: BP 129/64
[2020-12-30 17:13] VITALS: BP 138/69
--- NOTE | 2020-12-30 17:30 | NUR ---
SPOKE TO DR. JOSEPH. HIS IS AWARE THAT PT DOES NOT WANT TO GO HOME BUT PT IS STILL CLEARED MEDICALLY. IT IS NOW UP TO CASE MANAGEMENT AND ACCOUNTS SUPERVISOR WITH HOW TO PROCEED. DR. JOSEPH AWARE OF POSITIVE URINE CX BUT NO NEED FOR ABX DUE TO NO FEVER, NORMAL WBCs, AND NEGATIVE URINALYSIS.
--- NOTE | 2020-12-30 18:00 | NUR ---
PT TALKED WITH CASE MANAGEMENT KIERA. KIERA INFORMED ME THAT SHE WILL TALK TO FILM EDITOR AND THEY WILL CALL US TO LET US KNOW HOW TO PROCEED.
--- NOTE | 2020-12-30 19:00 | NUR ---
PT IS CURRENTLY RESTING THSI TIME. GIVEN MORPHINE FOR PAIN BUT STILL UNRESOLVED. PT GIVEN ZOFRAN FOR NAUSEA BUT STILL UNRESOLVED. PT REPORTS VOMITTING BLOOD BUT RN HONG WHO GAVE HIM EMESIS BAG DENIES WITNESSING HIM VOMIT. FIBERGLASS BOAT MAKER ALSO DENIES THROWING AWAY EMESIS BAGS. EMESIS BAG BY PT IS EMPTY AND NONE FOUND IN TRASH. PT HAS DISCHARGE ORDER BUT STATES HE DOES NOT FEEL WELL AND WILL RETURN TO ER IF DISCHARGED. IS AWARE BUT STATES PT CAN BE DISCHARGED FROM MEDICAL STANDPOINT. KIERA WITH CASE MANAGEMENT SPOKE TO PT AND SHE WILL TALK TO DIRECTOR EDUCATION. AWAITING CALL FROM DIRECTOR EDUCATION FOR UPDATE. SAFETY PRECAUTIONS IN PLACE. CALL LIGHT WITHIN REACH. WILL ENDORSE CARE TO LINOTYPIST RN.
[2020-12-30 20:22] VITALS: BP 139/73
--- NOTE | 2020-12-30 21:06 | NUR ---
RECEIVED PATIENT IN BED, ALERT AND ORIENTED. SKIN WAEM AND DRY TO TOUCH. RESPIRATION EVEN AND UNLABORED,NO RESPIRATORY DISTRESS. LUNGS CLEAR UPON AUSCULTATION.ON NSR TELE #15,EPISODES OF NAUSEA ,NO ACTUAL VOMITING.HAD EPISODES OF HEADACHE AND WILL GIVE MEDS OREDERED.RT. CHEST PERMACATH. INTACT.CALL LIGHT WITHIN REACH.
--- NOTE | 2020-12-31 04:42 | NUR ---
PATIENT SLEPT WITH SHORT INTERVAL AT NIGHT.REMAINED ON ROOM AIR ,NO SOB NOTED.HAD EPISODES OF C/O HEADACHE MEDS GIVEN ORDERED WITH GOOD RELIEF.NSR TELE MONITOR. HAD EPISODES OF C/O NAUSEA BUT NO ACTUAL VOMITING NOTED.MEDS GIVEN FOR NAUSEA WITH GOOD RELIEF.CALL LIGHT WITHIN REACH.
[2020-12-31 05:52] VITALS: BP 149/78
[2020-12-31 06:36] LABS: BASOPHIL % 0.7 % (0.2-1.5); PLATELET COUNT 324 x10^3mcL (152-348)
[2020-12-31 06:49] LABS: CALCIUM 7.6 mg/dL (8.5-10.1); CARBON DIOXIDE 22.3 mmol/L (21-32); MAGNESIUM 1.9 mg/dL (1.8-2.4); PHOSPHOROUS 4.9 mg/dL (2.5-4.9); POTASSIUM SERUM 3.9 mmol/L (3.5-5.1)
--- NOTE | 2020-12-31 07:45 | NUR ---
RECEIED PT REPORT FROM CHAIRMAN AND CEO NURSE. PT A/O X 4 IN NAD. PT DENIES ANY CHEST PAIN, NO SOB NOTED. TELEMONITOR 15 ON NSR. ON ROOM AIR 96 SPO2. CANE AT BEDSIDE. LAC 20 IV CDI AND PATENT. NO EDEMA OR ERYTHEMA NOTED. RT CHEST ACESS FOR HD. HD SCHEDULED TODAY. BED LOCKED INLOWEST POSITION, BD RAILS UP X 2, AND CALL LIGHT WITHIN REACH. ALL QUESTIONS AND CONCERNS WERE ADDRESSED AT THIS TIME.
[2020-12-31 10:38] VITALS: BP 147/77
--- NOTE | 2020-12-31 11:00 | NUR ---
SPOKE TO CHANELL MCNAIR, AWARE THAT PT IS SCHEDULED FOR HD TODAY AND THAT NA 127. AWAITING ORDERS.
--- NOTE | 2020-12-31 11:50 | NUR ---
PT IN LOW FOWLERS POSITION IN NAD. DENIES ANY CHEST OR OTHER PAIN. AT BED SIDE WITH MILAD- YICAL THERAPIST. PT STATES HE IS TIRED AND DOES NOT WANT TO ASSESS WITH PT HE BECOMES NAUSEAS. MILAD STATED HE WILL LET PT REST AND TRY AGAIN LATER IN THE SHIFT. ALL QUESTIONS AND CONCERNS WERE ADDRESSED AT THIS TIME. BED IN LOCKED, LOWEST POSITION, ARM RAILS RAISED X 2, AND CALL LIGHT WITHIN REACH.
[2020-12-31 12:13] VITALS: BP 147/75
--- NOTE | 2020-12-31 14:39 | NUR ---
PT IN NAD, IN NO APPARENT PAIN. NO SOB NOTED. HD NURSE AT BEDSIDE TO COMPLETE HD TODAY. BED IN LOCKED LOWET POSITION, ARM RAILS RAISED X 2, AND CALL LIGHT WITHIN REACH. ALL QUESTIONS AND CONCENS WERE ADDRESSED AT THIS TIME.
[2020-12-31 16:35] VITALS: BP 147/75
--- NOTE | 2020-12-31 17:36 | NUR ---
PT REMAINED STABLE THROUGHOUT SHIFT. IN NAD OR SOB NOTED. DENIES ANY PAIN. PT READ AND REVIEWED DC ORDERS. HE VERBALIZED UNDERSTANDING. PT SIGNED ALL DC PAPERS. ALL QUESTIONS AND CONCERNS WERE ADDRESSED. PT ID BAND REMOVED, IV ACCESS DC. CATHETER INTACT, NO EDEMA OR ERYTHEMA AT THE SITE. TELEMONITOR REMOVED AND RETURNED TO [facility]. COPPER MINER BLASTING ASSISTED WITH DRESSING THE PATIENT. TRANSPORTATION PROVIDED BY [facility] WHEELED HIM OUT AND IN ROUTE TO HOME.
== END 2020-12-31 17:35 | disposition home or self-care (01) | DRG 48 ==
LOC: ED 09:43 → DU 13:45 → MU 13:45 → DU 16:40
PROVIDERS: Emergency Medicine; Family Medicine; ADMIT Internal Medicine; ATTEND Internal Medicine
PROC: 5A1D70Z Performance of Urinary Filtration, Intermittent, Less than 6 Hours Per Day (ICD-10-PCS; principal; 2020-12-29)
PROC: 5A1D70Z Performance of Urinary Filtration, Intermittent, Less than 6 Hours Per Day (ICD-10-PCS; 2020-12-31)
DX: E11.43 Type 2 diabetes mellitus with diabetic autonomic (poly)neuropathy (principal); U07.1 COVID-19; I12.0 Hypertensive chronic kidney disease with stage 5 chronic kidney disease or end stage renal disease; R18.8 Other ascites; E11.21 Type 2 diabetes mellitus with diabetic nephropathy; E83.51 Hypocalcemia; N18.6 End stage renal disease; E11.65 Type 2 diabetes mellitus with hyperglycemia; E11.22 Type 2 diabetes mellitus with diabetic chronic kidney disease; K31.84 Gastroparesis; E87.1 Hypo-osmolality and hyponatremia; G89.29 Other chronic pain; M54.9 Dorsalgia, unspecified; D63.1 Anemia in chronic kidney disease; E78.5 Hyperlipidemia, unspecified; Z79.899 Other long term (current) drug therapy; Z82.3 Family history of stroke
CPT/HCPCS: 82962; 83880; 97530-GP; C9113; G0378; J1644; J1815; J2270; J2405; J2765; J7030; J7042; J8597; U0003